=== PATIENT | male | born 1970 | race Caucasian/White ===

== ENCOUNTER 2023-11-05 10:27 | Inpatient (IN) ==
[2023-11-05 11:27] LABS: Basophils # (auto) 0.04 K/uL (0.00-0.20); Basophils % (auto) 0.3 %; Eosinophils # (auto) 0.24 K/uL (0.00-0.50); Eosinophils % (auto) 1.7 %; Hematocrit (blood only) 48.9 % (42.0-52.0); Hemoglobin 16.7 g/dl (14.0-18.0); Immature Granulocytes # (auto) 0.06 K/uL (0.01-0.20); Immature Granulocytes % (auto) 0.4 %; Lymphocytes # (auto) 0.93 K/uL (1.20-3.40); Lymphocytes % (auto) 6.4 %; Mean Corpuscular Hemoglobin 28.6 pg (25.0-34.0); Mean Corpuscular Hgb Conc 34.2 g/dL (32.0-36.0); Mean Corpuscular Volume 83.9 fL (80.0-100.0); Mean Platelet Volume 9.8 fL (9.4-12.4); Monocytes # (auto) 0.84 K/uL (0.11-0.59); Monocytes % (auto) 5.8 %; Neutrophils # (auto) 12.34 K/uL (1.40-6.50); Neutrophils % (auto) 85.4 %; Platelet Count 272 K/uL (130-400); RDW Coefficient of Variation 14.2 % (11.5-14.5); RDW Standard Deviation 43.1 fL (36.4-46.3); Red Blood Count 5.83 M/uL (4.70-6.10); White Blood Count 14.45 K/ul (4.8-10.8)
--- NOTE | 2023-11-05 11:33 | Emergency Department Note ---
Impression & Plan Ulcerative colitis, C. difficile colitis ED Provider Note Name: ARCHANA ARCE Age: 53 Sex: Male Arrives Via: Walk-In Informant: Patient ED Provider: Anders De Leon MD Chief Complaint: Abdominal pain Impression: As per impressions above Medical Decision Making: Pleasant 53-year-old gentleman with a history of recently diagnosed ulcerative colitis arrives for evaluation of diffuse Quinn worsening abdominal pain. Recently diagnosed with C. difficile and has been on antibiotics for the last 8 days. On exam he has tenderness palpation left lower quadrant he is not septic appearing. Laboratory workup reveals significantly elevated inflammatory markers. He does feel better after some IV pain medications. I discussed the case with gastroenterology who requested we start a low-dose IV Solu-Medrol and give increased dose vancomycin p.o. Furthermore requested CT imaging with p.o. and IV contrast ordered. Given patient's failure of outpatient management will need hospitalization and thus hospitalist consulted for further management while awaiting CT scan. Patient was given total 2 L normal saline bolus here and looks significantly improved from a hydration standpoint. Of note he is not septic and does not have findings of surgical abdomen on initial evaluation or repeat eval's. Triage/Nursing Notes reviewed by Me Differential:Ulcerative colitis flare, C. difficile failure treatment, ischemia, obstruction, abscess, renal colic, diverticulitis, sepsis, dehydration, electrolyte imbalance, many other pathologies including urinary tract infections amongst others. Vital Signs: reviewed and remarkable for no significant abnormalities Interventions: Normal saline bolus 1 L IV x 2, morphine 6 mg IV, Solu-Medrol 20 mg IV, vancomycin 500 mg p.o. Labs:ED labs Reviewed by me and remarkable for elevated ESR and CRP Imaging:CT of the abdomen pelvis with p.o. and IV contrast reveals a diffuse colitis as per my informal interpretation. There is no evidence of obstruction, abscess. Confirmed by radiologist. Consults:Spa Director and Hospitalist Plan: Disposition:Hospitalization. Condition: Good History of Present Illness: 53-year-old male arrives for evaluation of abdominal pain. Patient diagnosed with ulcerative colitis 2 months ago. Initially was on a higher dose prednisone but is slowly taper down to 10 mg. He is also on mesalamine. Patient notes that about 2 weeks ago diarrhea started up again. He was tested for stool studies and tested positive for C. difficile. He has been on oral vancomycin for the last 8 days. Patient notes that the diarrhea continues to worsen. He is starting to note some blood in the stool. He has developed worsening lower abdominal pain. Primarily pain is in the left lower quadrant. No associated nausea, vomiting, fevers, chills, back pain, syncope. He does note though that he is getting quite lightheaded anytime he stands. He is not currently having any other concerning signs or symptoms. He has not had any medication prior to arrival for pain other than his prescribed medications. Past Medical History: Ulcerative colitis Home Medications: Prednisone, mesalamine Allergies: No known drug allergies. Vitals:Blood Pressure: 118/76, Pulse 93, RR 16, T 36.7C, O2 96% on RA Physical Exam: GENERAL: Patient is tired appearing and in mild distress. Dehydrated. Uncomfortable RESPIRATORY: No dyspnea. Clear to auscultation and equal bilaterally. CARDIOVASCULAR: Regular rate and rhythm.No murmur appreciated. GASTROINTESTINAL: tenderness palpation of the left lower quadrant without peritonitis. Moderate hyperactive bowel sounds noted. EXTREMITIES: Normal motion all extremities, no cyanosis, no edema. NEUROLOGIC: Alert and oriented. No focal neurologic deficits appreciated SKIN: No rash, no jaundice, no diaphoresis. PSYCH: Appropriate GCS: 15 ED Course: Times/Reassessments: Patient is significantly better after initial dose of morphine. He is not having significant further abdominal pain. He is agreeable to hospitalization. Anders De Leon MD Past Med/Surg History Medical History (Updated 11/05/23 @ 17:15 by Anders De Leon MD) Ulcerative colitis Surgical History (Updated 11/05/23 @ 13:59 by Rajwinder Talley PA-C) H/O arthroscopy of shoulder Family History Other Diabetes Heart disease Hypertension Social History Smoking Status: Never smoker Hx Alcohol Use: No Hx Substance Use: No Preferred Language: Vietnamese Communication Ability: Effective Services Mgr Required: No Beliefs That Will Affect Care: None Current Living Situation: Spouse Other Information That Helps Us Care for You: No Feels Safe at Home: Yes Safety Concerns: Feels Safe At This Time Assistive Devices: Glasses Allergies Allergies Allergy/AdvReac Type Severity Reaction Status Date / Time No Known Allergies Allergy Mild OTHER Unverified 05/08/09 14:39 Home Meds Home Medications Medication Instructions Recorded Confirmed Lactobacillus rhamnosus GG 10 1 cap PO DAILY 11/05/23 11/05/23 billion cell capsule (Culturelle) mesalamine 1.2 gram tablet,delayed 1.2 g PO 11/05/23 release prednisone 5 mg tablet 10 mg PO DAILY 11/05/23 11/05/23 Results & Data (ED) Vital Signs Vital Signs - 24 hr 11/05/23 10:32 11/05/23 10:36 11/05/23 11:08 Temperature 36.7 C Temperature Source Oral Pulse Rate 111 H 93 H Pulse Rate from SpO2 Sensor 92 H Respiratory Rate 16 20 Respiratory Effort / Characteristics Non-Labored Spontaneous Respiratory Depth Normal Blood Pressure 118/76 Blood Pressure Mean 90 Pulse Oximetry 96 96 94 Oxygen Delivery Method Room Air Room Air Sepsis Recent Fever Within 48 Hours No Sepsis New/Unexplained Change in Mental Status No Sepsis Action Taken by Nursing No Action Required 11/05/23 11:10 11/05/23 11:17 11/05/23 11:20 Temperature Temperature Source Pulse Rate 90 93 H 89 Pulse Rate from SpO2 Sensor 96 H 87 Respiratory Rate 14 22 Respiratory Effort / Characteristics Respiratory Depth Blood Pressure Blood Pressure Mean Pulse Oximetry 95 95 Oxygen Delivery Method Sepsis Recent Fever Within 48 Hours Sepsis New/Unexplained Change in Mental Status Sepsis Action Taken by Nursing 11/05/23 11:30 11/05/23 11:30 11/05/23 11:40 Temperature Temperature Source Pulse Rate 83 Pulse Rate from SpO2 Sensor 85 81 Respiratory Rate 15 11 L Respiratory Effort / Characteristics Respiratory Depth Blood Pressure 113/93 Blood Pressure Mean 98 Pulse Oximetry 96 97 Oxygen Delivery Method Sepsis Recent Fever Within 48 Hours Sepsis New/Unexplained Change in Mental Status Sepsis Action Taken by Nursing 11/05/23 11:50 11/05/23 12:00 11/05/23 12:00 Temperature Temperature Source Pulse Rate 78 71 Pulse Rate from SpO2 Sensor 78 70 Respiratory Rate 11 L 19 Respiratory Effort / Characteristics Respiratory Depth Blood Pressure 121/80 Blood Pressure Mean 94 Pulse Oximetry 94 97 Oxygen Delivery Method Sepsis Recent Fever Within 48 Hours Sepsis New/Unexplained Change in Mental Status Sepsis Action Taken by Nursing 11/05/23 12:10 11/05/23 12:20 11/05/23 12:30 Temperature Temperature Source Pulse Rate 74 86 Pulse Rate from SpO2 Sensor 75 85 Respiratory Rate 14 14 Respiratory Effort / Characteristics Respiratory Depth Blood Pressure 112/75 Blood Pressure Mean 86 Pulse Oximetry 96 97 Oxygen Delivery Method Room Air Sepsis Recent Fever Within 48 Hours Sepsis New/Unexplained Change in Mental Status Sepsis Action Taken by Nursing 11/05/23 12:30 11/05/23 12:40 Temperature Temperature Source Pulse Rate 82 82 Pulse Rate from SpO2 Sensor 84 83 Respiratory Rate 17 19 Respiratory Effort / Characteristics Respiratory Depth Blood Pressure Blood Pressure Mean Pulse Oximetry 94 94 Oxygen Delivery Method Sepsis Recent Fever Within 48 Hours Sepsis New/Unexplained Change in Mental Status Sepsis Action Taken by Nursing Laboratory Data 11/05/23 11:05 11/05/23 11:05 Lab Results 11/05/23 11/05/23 Range/Units 11:05 11:46 WBC 14.45 H (4.8-10.8) K/ul RBC 5.83 (4.70-6.10) M/uL Hgb 16.7 (14.0-18.0) g/dl Hct 48.9 (42.0-52.0) % MCV 83.9 (80.0-100.0) fL MCH 28.6 (25.0-34.0) pg MCHC 34.2 (32.0-36.0) g/dL RDW Std Deviation 43.1 (36.4-46.3) fL RDW Coeff of Luan 14.2 (11.5-14.5) % Plt Count 272 (130-400) K/uL MPV 9.8 (9.4-12.4) fL Immature Gran % (Auto) 0.4 % Neut % (Auto) 85.4 % Lymph % (Auto) 6.4 % Hart % (Auto) 5.8 % Eos % (Auto) 1.7 % Baso % (Auto) 0.3 % Neut # (Auto) 12.34 H (1.40-6.50) K/uL Lymph # (Auto) 0.93 L (1.20-3.40) K/uL Hart # (Auto) 0.84 H (0.11-0.59) K/uL Eos # (Auto) 0.24 (0.00-0.50) K/uL Baso # (Auto) 0.04 (0.00-0.20) K/uL Immature Gran # (Auto) 0.06 (0.01-0.20) K/uL ESR 97 H (0-20) mm/hr Sodium 132 L (136-145) mmol/L Potassium 4.3 (3.5-5.1) mmol/L Chloride 98 (98-107) mmol/L Carbon Dioxide 24 (21-32) mmol/L Anion Gap 10 (3-11) BUN 17 (6-23) mg/dl Creatinine 1.02 (0.6-1.4) mg/dl Est Cr Clr Drug Dosing 85.5 ml/min Est GFR ( Amer) 96.1 ml/min Est GFR (Non-Af Amer) 82.9 ml/min BUN/Creatinine Ratio 16.7 (10-20) Glucose 176 H (70-99(Fasting)) mg/dl Calcium 10.0 (8.6-10.3) mg/dl Total Bilirubin 1.1 H (0.2-1.0) mg/dl AST 12 L (13-39) U/L ALT 19 (7-52) U/L Alkaline Phosphatase 53 (34-104) U/L C-Reactive Protein 6.59 H (0-0.5) mg/dl Total Protein 8.2 (6.0-8.3) gm/dl Albumin 4.2 (3.4-5.0) gm/dl Globulin 4.0 (2.5-4.0) gm/dl Albumin/Globulin Ratio 1.1 (0.9-2) Procalcitonin 0.10 (0-0.5) ng/ml Urine Color [place] Urine Appearance Cloudy A (Clear) Urine pH 5.5 (4.5-7.5) Ur Specific [place] 1.021 (1.000-1.030) Urine Protein Trace H (Negative) Urine Glucose (UA) Negative (Negative) Urine Ketones Negative (Negative) Urine Blood Negative (Negative) Urine Nitrite Negative (Negative) Urine Bilirubin Negative (Negative) Urine Urobilinogen Negative (Negative) Ur Leukocyte Esterase Trace H (Negative) Urine WBC (Auto) 5-10 H (0-5) /hpf Urine RBC (Auto) 10-30 H (0-4) /hpf U Hyaline Cast (Auto) 10-30 H (0-5) /lpf U Epithel Cells (Auto) 10-20 H (0-5) /lpf Urine Bacteria (Auto) Negative (Negative) Administered Medications Orellana Syrup (Orellana Syrup 5 Ml Udp) 5 ml PO Q6 MAURICIO Stop: 11/15/23 17:59 Last Admin: 11/05/23 17:11 Dose: 5 ml Documented By: VILMA Sodium Chloride (Nss) 1,000 mls @ 100 mls/hr IV .Q10H MAURICIO Stop: 12/05/23 13:59 Last Admin: 11/05/23 14:03 Dose: 100 mls/hr Documented By: EDUARDO Methylprednisolone 20 mg/ (Syringe) 0.32 mls @ 1.5 mls/min IV Q8H MAURICIO Stop: 12/05/23 16:29 Last Admin: 11/05/23 17:11 Dose: 1.5 mls/min Documented By: VILMA Miscellaneous (Humira 40mg Pen: Order Awaiting Action) 1 each N/A QS MAURICIO Stop: 12/05/23 15:59 Last Admin: 11/05/23 17:03 Dose: Not Given Documented By: VILMA Vancomycin HCl (Vancomycin Hcl 500 Mg/10 Ml Soln) 500 mg PO Q6 MAURICIO Stop: 11/15/23 17:59 Last Admin: 11/05/23 17:12 Dose: 500 mg Documented By: VILMA Discontinued Medications Orellana Syrup (Orellana Syrup 5 Ml Udp) 5 ml PO ONE STA Stop: 11/05/23 12:33 Last Admin: 11/05/23 13:19 Dose: 5 ml Documented By: EDUARDO Sodium Chloride (Nss) 1,000 mls @ 999 mls/hr IV .Q1H1M ONE Stop: 11/05/23 12:31 Last Infusion: 11/05/23 12:53 Dose: Infused Documented By: Admin: 11/05/23 11:41 Dose: 999 mls/hr Documented By: EDUARDO Sodium Chloride (Nss) 1,000 mls @ 999 mls/hr IV .Q1H1M ONE Stop: 11/05/23 13:40 Last Infusion: 11/05/23 14:04 Dose: Infused Documented By: Admin: 11/05/23 12:54 Dose: 999 mls/hr Documented By: EDUARDO Ioversol (Optiray 320 500ml) 82 ml IV ONCE ONE Stop: 11/05/23 14:55 Last Admin: 11/05/23 14:54 Dose: 82 ml Documented By: DORA Methylprednisolone (Methylprednisolone 40 Mg/Ml Vial) 20 mg IV NOW STA Stop: 11/05/23 12:33 Last Admin: 11/05/23 12:54 Dose: 20 mg Documented By: EDUARDO Morphine Sulfate (Morphine Sulfate 10 Mg/Ml Carp/Vial) 6 mg IV NOW STA Stop: 11/05/23 11:32 Last Admin: 11/05/23 11:40 Dose: 6 mg Documented By: EDUARDO Ondansetron HCl (Ondansetron Inj 2 Mg/Ml 2 Ml Vial) 4 mg IV NOW STA Stop: 11/05/23 11:32 Last Admin: 11/05/23 11:40 Dose: 4 mg Documented By: EDUARDO Vancomycin HCl (Vancomycin Hcl 500 Mg/10 Ml Soln) 500 mg PO ONE STA Stop: 11/05/23 12:33 Last Admin: 11/05/23 13:19 Dose: 500 mg Documented By: EDUARDO Imaging Data Radiologist's Impression: KUB X-Ray 11/05/23 11:31 KUB HISTORY: cdiff, diffuse abdominal pain COMPARISON: None. FINDINGS: The bowel gas pattern is unremarkable. There are no dilated loops of small bowel to suggest an obstruction. Specifically, no evidence for colonic dilatation. The lung bases are clear. No renal calculi. No ureteral calculi. No pneumoperitoneum or pneumatosis. IMPRESSION: Nonobstructive bowel gas pattern. ACT 112: Negative or not required by law. Electronically signed by: Manuelito Talbot M.D. 11/05/2023 12:21 PM Abdomen/Pelvis CT 11/05/23 12:32 CT SCAN OF THE ABDOMEN AND PELVIS WITH IV CONTRAST CLINICAL HISTORY: Generalized abdominal pain. COMPARISON STUDY: Abdominal CT dated 05/08/2009. TECHNIQUE: Following the IV administration of 82 cc of Optiray 320, CT scan of the abdomen and pelvis is performed from the lung bases to the proximal femora. Images are reviewed in the axial, sagittal, and coronal planes. IV contrast was administered without complication. Oral contrast was utilized. A dose lowering technique was utilized adhering to the principles of ALARA. CT DOSE: 1345.2 mGy.cm FINDINGS: Lung bases: The heart is normal in size and without pericardial effusion. The lung bases are clear noting mild bibasilar atelectasis. Liver: The contrast-enhanced liver is normal in size, contour, and attenuation. There is no intrahepatic biliary ductal dilatation. The hepatic veins and portal veins are patent. Gallbladder: Unremarkable. Spleen: Normal in size and attenuation. Pancreas: Unremarkable. Adrenal glands: Unremarkable. Kidneys: The contrast enhanced kidneys are normal in size and without hydronephrosis. The kidneys enhance symmetrically. Small nonobstructing bilateral renal calculi measuring up to [address]one is seen. A circumaortic left renal vein is incidentally noted. Abdominal vasculature: The abdominal aorta is normal in course and caliber noting scattered foci of atherosclerotic calcification. Bowel: There is mild diffuse colonic wall thickening with faint pericolonic infiltration and prominent pericolonic lymph nodes. The appearance suggests a nonspecific pancolitis. Submucosal fat deposition is noted in the distal ileum and cecum. No bowel obstruction is seen. Enteric contrast reaches the left colon. The appendix is well-visualized and normal. Peritoneum: There is no intraperitoneal free air or abdominal ascites. There is a fat-containing umbilical hernia. Lymphadenopathy: None. Pelvic viscera: The bladder, prostate, and seminal vesicles are normal as visualized. There are small bilateral fat-containing groin hernias. Skeletal structures: No lytic or blastic lesions are seen. IMPRESSION: 1. There is evidence of a mild nonspecific pancolitis, likely on an infectious or inflammatory basis. Clinical correlation will be required. 2. No bowel obstruction is seen. 3. Bilateral nephrolithiasis. 4. Normal appendix. 5. Additional findings as above. ACT 112: Negative or not required by law. Electronically signed by: Richard Woodard M.D. 11/05/2023 3:21 PM Discharge Plan Visit Data Chief Complaint: Illness Stated Complaint: DEHYDRATED, COLD SWEATS, ABD PAIN ED Provider: Anders De Leon Discharge Problem: Ulcerative colitis, C. difficile colitis Patient Disposition: Admitted As Inpatient Discharge Instructions Interventions: ED Discharge Assessment Last Done: 11/05/23 15:49 Discharge Problem: Ulcerative colitis Qualifiers: Ulcerative colitis location: ulcerative pancolitis
[2023-11-05] MEDS: ONDANSETRON INJ 2 MG/ML 2 ML VIAL IV STA (11:40)
[2023-11-05] MEDS: MoRPHine SULFATE 10 MG/ML CARP/VIAL IV STA (11:40)
[2023-11-05] MEDS: SODIUM CHLORIDE 0.9% 1,000 ML IV ONE ×2 (11:41→12:54)
[2023-11-05 11:45] LABS: Albumin Globulin Ratio 1.1 (0.9-2); Albumin Level 4.2 gm/dl (3.4-5.0); BUN Creatinine Ratio 16.7 (10-20); Bilirubin,Total 1.1 mg/dl (0.2-1.0); Creatinine Clr Calc Pharmacy 85.5 ml/min; Est GFR (African American) 96.1 ml/min; Est GFR (Non-African American) 82.9 ml/min; Potassium 4.3 mmol/L (3.5-5.1); Total Protein 8.2 gm/dl (6.0-8.3)
[2023-11-05 11:54] LABS: C Reactive Protein 6.59 mg/dl (0-0.5)
[2023-11-05 12:12] LABS: Appearance Urine Cloudy (Clear); Bacteria Urine Automated Negative (Negative); Bilirubin Urine Negative (Negative); Blood Urine Negative (Negative); Color Urine Orange; Glucose Urine UA Negative (Negative); Ketones Urine Negative (Negative); Leukocyte Esterase Urine Trace (Negative); Nitrite Urine Negative (Negative); Protein Urine Trace (Negative); Specific Gravity Urine 1.021 (1.000-1.030); Urobilinogen Urine Negative (Negative); pH Urine 5.5 (4.5-7.5)
--- NOTE | 2023-11-05 12:23 | XRay Report ---
KUB HISTORY: cdiff, diffuse abdominal pain COMPARISON: None. FINDINGS: The bowel gas pattern is unremarkable. There are no dilated loops of small bowel to suggest an obstruction. Specifically, no evidence for colonic dilatation. The lung bases are clear. No renal calculi. No ureteral calculi. No pneumoperitoneum or pneumatosis. IMPRESSION: Nonobstructive bowel gas pattern. ACT 112: Negative or not required by law. Electronically signed by: Manuelito Talbot M.D. 11/05/2023 12:21 PM
--- NOTE | 2023-11-05 12:42 | Gastrointestinal Consultation ---
Date of Consultation November 05, 2023 Assessment & Plan (1) Ulcerative colitis: (2) C. difficile colitis: Plan - Vancomycin 500mg QID (no improvement on 125 Q6 hrs x 8 days). - IV fluids - CTAP w IV/oral - Solumedrol 20mg QID - Pt bringing Humira, 80mg - it should be delivered at his home by tomorrow. Per Hospital protocol, when med is brought in to [facility] by his family, will have pharmacy relabel and teach pt self injection. - CBC, CMP tomorrow. Will also check for Celiac (life long hx of loose stools). - clear liquid diet. - will continue to follow. Supervising Physician Co-Signing Physician Notes agree with pe and plan as documented. History of Present Illness Reason for Consultation: UC, C-diff Requesting Physician: Dr. De Leon, ED physician/[facility] Attending Physician: Dr. De Leon, [facility] History of Present Illness Mr. Christopher Zaragoza is a 53 yr old male pt of Dr. Dayron Mitchell w a hx of GERD and mild psoriasis (otherwise unremarkable PMH) who is being tx for davis UC. w mesalamine po since colonoscopy was very suspicious for davis UC in Jul 2023. His symptom onset was abrupt, about 3 wks prior consisting of bloody diarrhea and pain. At the time of dx, in July, he was placed on a 6 wk predisone tape which gave relief of the diarrhea and pain withing 3 days. He remained well until mid September when the bloody diarrhea, pain nausea returned. On , he was started on a repeat prednisone taper and Humira Prescribed (now approved, first dose still pending, pt states expected to arrive at his home tomorrow). Despite the taper, diarrhea continued and he was C-diff (+) and has been on Vanco since Oct 23. The pt's diarrhea (about 1/2 cup every two hrs of bloody diarrhea)and abd pain (diffuse, worse in the LLQ) are worsening, so he presented to the ED where sed is >100, he appears dehydrated, he has leukocytosis at 14 but is afebrile, normotensive w/o tachycardia. CT pending. He got relief of the abd pain w a 6mg dose of Morphine which also slowed his diarrhea. Of note, he also has a life long hx of frequent loose BMs, about 3/day. Colonoscopy 08/13 The perianal and digital rectal examinations were normal. Pertinent negatives include normal sphincter tone and no palpable rectal lesions. The terminal ileum appeared normal. A diffuse area of severely congested, erythematous, friable (with contact bleeding) and inflamed mucosa was found in the entire colon. Biopsies were taken with a cold forceps for histology. Verification of patient identification for the specimen was done by the physician and nurse using the patient's name and date. Estimated blood loss was minimal. An area of moderately mucosa was found in the rectum. A. Colon, random, biopsy: Active chronic colitis with crypt abscess No granuloma or dysplasia identified Allergies Allergy/AdvReac Type Severity Reaction Status Date / Time No Known Allergies Allergy Mild OTHER Unverified 05/08/09 14:39 Home Medications Medication Instructions Recorded Confirmed Type Lactobacillus rhamnosus GG 10 1 cap PO DAILY 11/05/23 11/05/23 History billion cell capsule (Culturelle) mesalamine 1.2 gram tablet,delayed 1.2 g PO 11/05/23 History release prednisone 5 mg tablet 10 mg PO DAILY 11/05/23 11/05/23 History Patient History Medical History (Updated 11/05/23 @ 14:02 by Rajwinder Talley PA-C) Ulcerative colitis Surgical History (Updated 11/05/23 @ 13:59 by Rajwinder Talley PA-C) H/O arthroscopy of shoulder Family History Other Diabetes Heart disease Hypertension Social History Smoking Status: Never smoker Hx Alcohol Use: Yes Alcohol type: beer Alcohol Intake Frequency: 2-4 x/Month Alcohol Intake Frequency Comment: none in past few months with health issues Hx Substance Use: No Preferred Language: Armenian Feels Safe at Home: Yes Review of Systems Review of Systems: ROS: Gen: + easily fatigues, No fevers, + weight loss, + poor appetite Eyes: No eye redness, or pain, no recent vision changes Resp: No SOB, no cough Cardio: No palpitations/irregular beats, no chest pain GI: As per HPI, otherwise (-) : Denies pain on urination Skin: No jaundice, itching or new rashes M/S: no red/swollen joints Physical Exam Constitutional: WD/WN, vitals as above Eyes: PERRL, conjunctivae normal, anicteric sclerae ENMT: external ear and nose normal, oropharynx normal Neck: trachea midline, no thyromegaly Respiratory: normal respiratory effort, lungs clear to auscultation Cardiovascular: RRR, no murmur, no edema Gastrointestinal (Abdomen): Active BS throughout, diffuse abd tenderness, LLQ > than elsewhere, soft,mildly distended. Skin: no rashes, warm and dry Neurologic: PERRL, EOMI, accommodation nl, no face palsy, no dysarthria Psychiatric: A+Ox3, euthymic affect Lymphatic: no cervical or axillary lymphadenopathy Results & Data Vital Signs (Past 12 Hours) Vital Signs Temp Pulse Resp BP Pulse Ox O2 Del Method 11/05/23 12:10 74 14 96 Room Air 11/05/23 12:00 71 19 97 11/05/23 12:00 121/80 11/05/23 11:50 78 11 L 94 11/05/23 11:40 11 L 97 11/05/23 11:30 83 15 96 11/05/23 11:30 113/93 11/05/23 11:20 89 22 95 11/05/23 11:17 93 H 11/05/23 11:10 90 14 95 11/05/23 11:08 93 H 20 94 11/05/23 10:36 96 Room Air 11/05/23 10:32 36.7 C 111 H 16 118/76 96 Room Air Laboratory Results WBC 14, Hb 16, Hct 48, Plts 272, Na 132, K 4.3, Cl 98, CO2 28, BUN 17, Cr 1.02, glucose 121. Sed 97 CRP 6.59. Diagnostic Findings KUB 11/05/23: Negative or not required by law.
--- NOTE | 2023-11-05 13:02 | History & Physical Report ---
Date of Service November 05, 2023 Assessment & Plan (1) Ulcerative colitis: (2) C. difficile colitis: Plan: This is a 53-year-old male with PMH of suspected davis ulcerative colitis on mesalamine since colonoscopy in July 2023 with recent increase in diarrhea frequency in the past few weeks, found to be c diff positive on Oct 23 stool culture. Increased diarrhea frequency to every 40 minutes over the past few nights, left sided abdominal cramping and poor PO intake Follows with Dr. Valero, completing steroid taper (pred 10mg daily with 3 days left), on mesalamine and prescribed Humira which is en route to house but not yet started Afebrile, WNC 14.45K, hgb 16.7, ESR 97, CRP 6.59 CT abd/pelvis with IV and PO contrast pending Discussed with GI - continue Vanco at increased dose of 500mg PO Q6H, IV 20mg solu-medrol Q8H, plan to start Humira on dc Continue IV fluids, clear liquid diet, pain control Isolation precautions Repeat CMP, CBC in AM Abnormal UA Abnormal UA but no nitrates, urine bacteria negative Dysuria has resolved with hydration - will hold off on abx for now give c diff, monitor symptoms Follow urine culture DVT Ppx: SCDs Code status: FULL PCP: Stephen Dispo: Obs med/surg Patient seen in collaboration with Dr. Hunt. Please see addendum. I spent a total of 60 minutes coordinating, documenting, and providing care for this patient excluding time spent in the performance of separately billed services. History of Present Illness Chief Complaint: c diff Primary Care Provider: Dayron Mitchell MD This is a 53-year-old male with PMH of suspected davis ulcerative colitis on mesalamine since colonoscopy in July 2023. Responded well to steroids for Aug-Sep but once prednisone was tapered, diarrhea worsened and was resumed on a prednisone taper. Follows with Dr. Valero. Previously went every 2 hours but then increased in frequency the last 2 nights where he is going every 40 minutes. Consistency is mainly water and sometimes bright red blood. Associated with stomach cramping on the left lower abdomen. Humira was prescribed (but not yet started) but is en route to his house. Had a repeat stool sample at the beginning of October due to increased diarrhea and was found to be C. difficile positive on October 23. Otherwise stool culture was negative. Has been on vancomycin since then. Continuing to have frequent diarrhea episodes along with decreased p.o. intake and generalized weakness, prompting visit to ED today. Can really only tolerate Ensure shakes and has decreased PO intake. Has had chills and night sweats the past few evenings as well as nausea. No vomiting. No lightheadedness, CP, SOB. Has had dysuria for the past 1-2 weeks and feels very dehydrated. Allergies Allergy/AdvReac Type Severity Reaction Status Date / Time No Known Allergies Allergy Mild OTHER Unverified 05/08/09 14:39 Home Medications Medication Instructions Recorded Confirmed Type Lactobacillus rhamnosus GG 10 1 cap PO DAILY 11/05/23 11/05/23 History billion cell capsule (Culturelle) mesalamine 1.2 gram tablet,delayed 1.2 g PO 11/05/23 History release prednisone 5 mg tablet 10 mg PO DAILY 11/05/23 11/05/23 History Past Med/Surg History Medical History (Updated 11/05/23 @ 17:15 by Anders De Leon MD) Ulcerative colitis Surgical History (Updated 11/05/23 @ 13:59 by Rajwinder Talley PA-C) H/O arthroscopy of shoulder Family History Other Diabetes Heart disease Hypertension Social History Smoking Status: Never smoker Hx Alcohol Use: No Hx Substance Use: No Preferred Language: [place] Citizen Communication Ability: Effective Head Of Design Required: No Beliefs That Will Affect Care: None Current Living Situation: Spouse Other Information That Helps Us Care for You: No Feels Safe at Home: Yes Safety Concerns: Feels Safe At This Time Assistive Devices: Glasses Review of Systems Review of Systems: At least ten systems reviewed and negative except as noted in the HPI. Physical Exam Physical Exam: Please see Dr. Hunt's addendum for physical exam. Results & Data Results & Data Vital Signs (Past 12 Hours) Vital Signs Temp Pulse Resp BP Pulse Ox O2 Del Method 11/05/23 12:10 74 14 96 Room Air 11/05/23 12:00 71 19 97 11/05/23 12:00 121/80 11/05/23 11:50 78 11 L 94 11/05/23 11:40 11 L 97 11/05/23 11:30 83 15 96 11/05/23 11:30 113/93 11/05/23 11:20 89 22 95 11/05/23 11:17 93 H 11/05/23 11:10 90 14 95 11/05/23 11:08 93 H 20 94 11/05/23 10:36 96 Room Air 11/05/23 10:32 36.7 C 111 H 16 118/76 96 Room Air Laboratory Results Short CBC 11/05/23 Range/Units 11:05 WBC 14.45 H (4.8-10.8) K/ul Hgb 16.7 (14.0-18.0) g/dl Hct 48.9 (42.0-52.0) % Plt Count 272 (130-400) K/uL BMP 11/05/23 11:05 Sodium 132 L Potassium 4.3 Chloride 98 Carbon Dioxide 24 BUN 17 Creatinine 1.02 Glucose 176 H Calcium 10.0 Liver Function 11/05/23 Range/Units 11:05 Total Bilirubin 1.1 H (0.2-1.0) mg/dl AST 12 L (13-39) U/L ALT 19 (7-52) U/L Alkaline Phosphatase 53 (34-104) U/L Albumin 4.2 (3.4-5.0) gm/dl Urine 11/05/23 Range/Units 11:46 Urine Color [place] Urine Appearance Cloudy A (Clear) Urine pH 5.5 (4.5-7.5) Ur Specific [place] 1.021 (1.000-1.030) Urine Protein Trace H (Negative) Urine Glucose (UA) Negative (Negative) Diagnostic Findings KUB X-Ray 11/05/23 11:31 KUB HISTORY: cdiff, diffuse abdominal pain COMPARISON: None. FINDINGS: The bowel gas pattern is unremarkable. There are no dilated loops of small bowel to suggest an obstruction. Specifically, no evidence for colonic dilatation. The lung bases are clear. No renal calculi. No ureteral calculi. No pneumoperitoneum or pneumatosis. IMPRESSION: Nonobstructive bowel gas pattern. ACT 112: Negative or not required by law. Electronically signed by: Manuelito Talbot M.D. 11/05/2023 12:21 PM Supervising Physician Co-Signing Physician Notes Patient is a 53-year-old male with history of ulcerative colitis, was recently diagnosed in July 2023 presents with history of worsening diarrhea with intermittent rectal bleed, abdominal cramping. Patient was planned to be started on Humira by his physical therapy attendant. Outpatient stool studies positive for C. difficile. Currently on oral vancomycin since October 23, symptoms continued to get worse despite being on oral vancomycin. Patient also admits to have poor oral intake, generalized weakness. Please review HPI for complete details of presentation. Blood work showed findings suggestive of leukocytosis 14.4 K, hemoglobin 16.7, platelets 272 K, ESR 97, sodium 132, glucose 176, CRP 6.59, normal procalcitonin. Noted abnormal urinalysis. CT abdomen showed findings suggestive mild nonspecific pancolitis, bilateral nephrolithiasis. Physical Exam: Vitals signs as noted above General Appearance:Moderately built and nourished, no apparent distress Head: normocephalic, Atraumatic Eyes: normal inspection, EOMI Neck: supple, Trachea midline Respiratory/Chest: Normal breath sounds, CTA, No accessory muscle use Cardiovascular: S1, S2, No murmur Abdomen/GI:Soft, LLQ tender, Bowel sounds present Extremities/Musculoskeletal:normal inspection, no edema Neurologic/Psych:AAOX3, grossly no focal neurological deficits Skin: normal color, warm Ulcerative colitis flare In setting of C. difficile colitis Continue gentle IV fluids, IV Solu-Medrol, p.o. vancomycin Appreciate GI input Monitor H&H and transfuse as needed Clear liquid diet for today Continue mesalamine, plan to start Humira as able Hyperglycemia Likely due to steroids Check HbA1c I personally interviewed and examined at bedside. Patient's care is coordinated with Rajwinder Talley PA-C. I have reviewed the advanced practitioner's documentation, and I agree with, and take responsibility for that plan of care. Please refer to the documentation above for details of patient's presentation and for discussion of other issues. I spent a total of26 minutes coordinating, documenting, and providing care for this patient excluding time spent in the performance of separately billed services.
[2023-11-05] MEDS: CHERRY SYRUP 5 ML UDP PO STA (13:19)
[2023-11-05] MEDS: VANCOMYCIN HCL 500 MG/10 ML SOLN PO STA (13:19)
[2023-11-05] MEDS: SODIUM CHLORIDE 0.9% 1,000 ML IV SCH (14:03)
[2023-11-05] MEDS: OPTIRAY 320 500ml IV ONE (14:54)
--- NOTE | 2023-11-05 15:22 | CT Scan Report ---
CT SCAN OF THE ABDOMEN AND PELVIS WITH IV CONTRAST CLINICAL HISTORY: Generalized abdominal pain. COMPARISON STUDY: Abdominal CT dated 05/08/2009. TECHNIQUE: Following the IV administration of 82 cc of Optiray 320, CT scan of the abdomen and pelvi s is performed from the lung bases to the proximal femora. Images are reviewed in the axial, sagittal , and coronal planes. IV contrast was administered without complication. Oral contrast was utilized. A dose lowering technique was utilized adhering to the principles of ALARA. CT DOSE: 1345.2 mGy.cm FINDINGS: Lung bases: The heart is normal in size and without pericardial effusion. The lung bases are clear no ting mild bibasilar atelectasis. Liver: The contrast-enhanced liver is normal in size, contour, and attenuation. There is no intrahepa tic biliary ductal dilatation. The hepatic veins and portal veins are patent. Gallbladder: Unremarkable. Spleen: Normal in size and attenuation. Pancreas: Unremarkable. Adrenal glands: Unremarkable. Kidneys: The contrast enhanced kidneys are normal in size and without hydronephrosis. The kidneys enh ance symmetrically. Small nonobstructing bilateral renal calculi measuring up to [address] one is seen. A circumaortic left renal vein is incidentally noted. Abdominal vasculature: The abdominal aorta is normal in course and caliber noting scattered foci of a therosclerotic calcification. Bowel: There is mild diffuse colonic wall thickening with faint pericolonic infiltration and prominen t pericolonic lymph nodes. The appearance suggests a nonspecific pancolitis. Submucosal fat depositio n is noted in the distal ileum and cecum. No bowel obstruction is seen. Enteric contrast reaches the left colon. The appendix is well-visualized and normal. Peritoneum: There is no intraperitoneal free air or abdominal ascites. There is a fat-containing umbi lical hernia. Lymphadenopathy: None. Pelvic viscera: The bladder, prostate, and seminal vesicles are normal as visualized. There are small bilateral fat-containing groin hernias. Skeletal structures: No lytic or blastic lesions are seen. IMPRESSION: 1. There is evidence of a mild nonspecific pancolitis, likely on an infectious or inflammatory basis. Clinical correlation will be required. 2. No bowel obstruction is seen. 3. Bilateral nephrolithiasis. 4. Normal appendix. 5. Additional findings as above. ACT 112: Negative or not required by law. Electronically signed by: Richard Woodard M.D. 11/05/2023 3:21 PM
[2023-11-05] MEDS ORDERED: ONDANSETRON INJ 2 MG/ML 2 ML VIAL IV PRN (16:22)
[2023-11-05] MEDS ORDERED: ACETAMINOPHEN 325 MG TAB PO PRN (16:22)
[2023-11-05] MEDS: CHERRY SYRUP 5 ML UDP PO SCH (17:11)
[2023-11-05] MEDS: methylPREDNISolone 20 MG in SYRINGE 0 ML IV SCH (17:11)
[2023-11-05] MEDS: VANCOMYCIN HCL 500 MG/10 ML SOLN PO SCH (17:12)
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
--- OUTSIDE RECORDS SUMMARY | 2023-11-05 18:34 | External Medical Summary | Summary of Care ---
Author Name Unknown Organization [facility] Address [address] [place] [address] Phone [phone] Care Team Providers Care Core Carrier Name Role Phone Dayron Mitchell MD Primary Care Provider [phone] Encounter Details Date Type Department Care Team ([facility] st Contact Info) Description 10/14/2023 Specialty Pharmacy [facility], [address] [place] [address] Medication, [facility], [address] [address] Allergies No known active allergiesdocumented as of [...] on file documented as of this encounter Progress Notes * Bill Calabrese RPh - 10/30/2023 3:29 PM EST Prescribed medication: Medication: humira Shipment date: 11/04 Delivery method: Specialty Mail Location Medication Delivered too? Home Address: [address] [place] [phone] Results for orders placed or performed in visit on 10/09/23 QUANTIFERON TB GOLD PLUS Result Value Ref Range Quantiferon-TB Plus, 1T NEGATIVE NEGATIVE NIL 0.03 IU/mL Mitogen-NIL 8.05 IU/mL TB1-NIL 0.00 IU/mL TB2-NIL <0.00 IU/mL Results for orders placed or performed in visit on 10/09/23 HEPATITIS B SURFACE ANTIBODY Result Value Ref Range Hepatitis B Surface Antibody, Quantitative 5.3 mIU/mL Hepatitis B Surface Antibody, Qualitative Negative Hepatitis B Surface Antibody, Interpretation NOT immune to Hepatitis B Virus Bill Calabrese RPh [facility] 10/30/2023,3:41 PM * Adrianna Schafer RPh - 10/14/2023 1:42 PM EST [facility] Pharmacist identified the following Clinical Intervention and made the following change or recommendation: Type of intervention Medication Clarification Unexpected dose, clarification request, quantity is only for one pen Clinical Intervention Status: Request in process TE sent Adrianna Schafer, PharmD, [facility] Specialty Clinical Pharmacist [facility] [phone] 10/14/2023, 1:42 PM documented in this encounter Plan of Treatment Upcoming Encounters Date Type Department Care Team (Late st Contact Info) Description 01/15/2024 9:00 AM EDT Office Visit Gastroenterology, [facility] [address] [facility] [place] [address] Tree Cornejo CRNP [address] [place] [address] 06/03/2024 9:00 AM EDT Office Visit [facility] [address] [place] [address] Dayron Mitchell MD [address] [place] [address] Scheduled Procedures Name Priority Associated [...] this encounter Medical Devices Implanted Type Area Reel Fed Printer Device Identifier Shelf Expiration Date Model / Serial / Lot Biocomposite Corkscrew Ft 4.5 X 14mm Implanted:Qty: 1 on 05/03/2018 by Teri Stokes DO at OR [facility] Left: Shoulder [employer] 10/21/2019 [id number] -[id number] / / [id number] documented as of this encounter Additional Health [...] and were consensually agreed upon. Care Teams Core Carrier Relationship Specialty Start Date End Date Dayron Mitchell MD [address] [place] [facility] [place] [address] PCP - General Family Medicine 08/04/12 documented as of this encounter
--- OUTSIDE RECORDS SUMMARY | 2023-11-05 18:34 | External Medical Summary ---
Author Name Unknown Address Unknown Organization [id number]:[facility] [address] [place] [address] Laboratory Report Ordering Provider Test Date Status STEVE SANDY 10/22/2023 07:49:53 Final Observation Date Value Abnormality Reference (Units ) Status Erythrocyte sedimentation rate by Photometric method 10/22/2023 07:49:53 85 Above high normal <20 (mm/hour) Final Performing Location [facility] - [address] [place] [address]
--- OUTSIDE RECORDS SUMMARY | 2023-11-05 18:34 | External Medical Summary | Summary of Care ---
Author Name Unknown Organization [facility] Address [address] [place] [address] Phone [phone] Care Team Providers Care Pipeline Welder Name Role Phone Dayron Mitchell MD Primary Care Provider [phone] Reason for Visit * Reason Onset Date Comments Test Results 10/26/2023 Encounter Details Date Type Department Care Team (Late st Contact Info) Description 10/26/2023 Telephone Gastroenterology, [address] [address] Precious Valero, DO [address] [facility] [place] [address] Test Results Allergies No known active allergiesdocumented as of [...] days. 56 Capsule 0 10/26/2023 11/09/2023 Active documented as of this encounter (statuses [...] encounter Miscellaneous Notes * Telephone Encounter - Kenzie Allen RN - 10/26/2023 11:20 AM EST Spoke to patient, documented in another encounter. * Telephone Encounter - Precious Valero DO - 10/26/2023 8:49 AM EST Patient positive for C. difficile infection. I would like to treat him with 2- day course of vancomycin. documented in this encounter Plan of Treatment Upcoming Encounters Date Type Department Care Team (Late st Contact Info) Description 01/15/2024 9:00 AM EDT Office Visit Gastroenterology, [facility] [address] [place] [address] Tree Cornejo CRNP [address] [place] [address] 06/03/2024 9:00 AM EDT Office Visit [facility] [address] [place] [phone] Dayron Mitchell MD [address] [place] [address] Scheduled Procedures Name Priority Associated Diagnoses Date/Ti me COLONOSCOPY FLEXIBLE PROXIMA L DIAGNOSTIC Recall Special screening for malignant neoplasm of colon Health Maintenance Due Date Last Done Comments Cologuard 2014 Fecal Occult Blood Test 2014 Sigmoidoscopy 2014 Zoster Vaccines (1 of 2) 2019 Depression Screening 05/04/2021 05/04/2020 COVID-19 Vaccine (4 - 2022- season) 2023 10/06/2021, 02/03/2021, 01/06/2021 Influenza Vaccine [...] this encounter Medical Devices Implanted Type Area Political Anthropologist Device Identifier Shelf Expiration Date Model / Serial / Lot Biocomposite Corkscrew Ft 4.5 X 14mm Implanted:Qty: 1 on 05/03/2018 by Teri Stokes, at OR [facility] Left: Shoulder [employer] 10/21/2019 [id number]-[id number] -[id number] / / [id number] documented as of this encounter Additional Health Concerns Infection Onset Date Last Indicated Resolved Time C. difficile 10/23/2023 10/23/2023 documented as of this encounter Advance Directives Latest Code Status on File Code Status Date Activated Date Inactivated Comments Full Code 05/03/2018 12:04 PM 05/03/2018 5:54 PM This order reflects the patients wishes and were consensually agreed upon. Care Teams Pipeline Welder Relationship Specialty Start Date End Date Dayron Mitchell MD [address] [place] [address] PCP - General Family Medicine 08/04/12 documented as of this encounter
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
--- OUTSIDE RECORDS SUMMARY | 2023-11-05 18:34 | External Medical Summary ---
Author Name Unknown Address Unknown Organization K01:[facility] [place] [address] [address] [facility] [address] Laboratory Report Ordering Provider Test Date Status STEVE SANDY 10/23/2023 09:26:36 Final Observation Date Value Abnormality Reference (Units ) Status Campylobacter sp DNA.diarrheagenic [Presence] in Stool by ANAYELI with probe detection 10/23/2023 09:26:36 Negative Negative Final Salmonella sp rpoD gene [Presence] in Stool by ANAYELI with probe detection 10/23/2023 09:26:36 Negative Negative Final Shigella species+EIEC invasion plasmid antigen H ipaH gene [Presence] in Stool by ANAYELI with probe detection 10/23/2023 09:26:36 Negative Negative Final Vibrio sp DNA [Identifier] in Specimen by ANAYELI with probe detection 10/23/2023 09:26:36 Negative Negative Final Yersinia enterocolitica recN gene [Presence] in Stool by ANAYELI with probe detection 10/23/2023 09:26:36 Negative Negative Final Escherichia coli Stx1 toxin stx1 gene [Presence] in Stool by ANAYELI with probe detection 10/23/2023 09:26:36 Negative Negative Final Escherichia coli Stx2 toxin stx2 gene [Presence] in Stool by ANAYELI with probe detection 10/23/2023 09:26:36 Negative Negative Final Norovirus genogroups I and II RNA panel - Stool by ANAYELI with probe detection 10/23/2023 09:26:36 Negative Negative Final Rotavirus A RNA [Presence] in Stool by ANAYELI with probe detection 10/23/2023 09:26:36 Negative Negative Final Performing Location LABORATORY [address] [facility] [address]
--- OUTSIDE RECORDS SUMMARY | 2023-11-05 18:34 | External Medical Summary | Summary of Care ---
Author Name Unknown Organization [facility] Address [address] [place] [address] Phone [phone] Care Team Providers Care Educational Manager Name Role Phone Dayron Mitchell MD Primary Care Provider [phone] Reason for Visit * Reason Onset Date Comments Pre Cert/Prior Auth 10/16/2023 Encounter Details Date Type Department Care Team (Late st Contact Info) Description 10/16/2023 Telephone Gastroenterology, [facility] [address] [place] [address] Precious Valero, [address] [place] [address] Pre Cert/Prior Auth Allergies No known active [...] encounter Miscellaneous Notes * Telephone Encounter - Yan Damian, [facility] - 10/20/2023 2:11 PM EST I spoke with Kami at [facility] who is advising this is approved and can be filled at [facility]. When she completes a test claim, she receives a "DUR 88" message and states the pharmacy may need to call [phone] for an override. This may be for the first induction pens. I attempted to contact patient to discuss next steps and complete med education. No answer, left message to return call to clinic at earliest convenience. Yan Damian RPh Clinical Pharmacist, Gastroenterology 10/20/2023,2:12 PM * Telephone Encounter - Valencia Bui OSA - 10/20/2023 8:30 AM EST CALLED TEST CLAIM IS NOT SUCCESSFUL. SPOKE TO CRYSTAL. WAS ADVISED 03/18 IS NOT ALLOWED. PLEASE ADVISE. Valencia Bui Medication Street Sweeper III P: [phone] F: [phone] 10/20/23,8:29 AM * Telephone Encounter - Yan Damian RPh - 10/16/2023 11:01 AM EST Gastro Pre-Cert Request Specialty Medication: Yes. Medication/Disease State Information: Medication: Adalimumab (Humira and biosimilars) per specialty workflow Humira 40mg/0.8ml: 160mg on day 1, then 80mg on day 15, then 40mg every 14 days Diagnosis (including ICD-10): Ulcerative colitis K51.90. Specialty medication - route to [id number]. Referral to pharmacist for: co-management. Office Information: [...] 01/15/2024 9:00 AM EDT Office Visit Gastroenterology, [facility] [address] [place] [address] Tree Cornejo CRNP [address] [place] [address] 06/03/2024 9:00 AM EDT Office Visit [facility] [address] [place] [phone] Dayron Mitchell MD [address] [place] [address] Scheduled Procedures Name Priority Associated [...] this encounter Medical Devices Implanted Type Area Military Communications Specialist Device Identifier Shelf Expiration Date Model / Serial / Lot Biocomposite Corkscrew Ft 4.5 X 14mm Implanted:Qty: 1 on 05/03/2018 by Teri Stokes DO at OR [facility] Left: Shoulder [employer] 10/21/2019 [id number]-1927BCF -45 / / [id number] documented as of this encounter Advance Directives Latest Code Status on File Code Status Date Activated Date Inactivated Comments Full Code 05/03/2018 12:04 PM 05/03/2018 5:54 PM This order reflects the patients wishes and were consensually agreed upon. Care Teams Educational Manager Relationship Specialty Start Date End Date Dayron Mitchell MD [address] [place] [address] PCP - General Family Medicine 08/04/12 documented as of this encounter
--- OUTSIDE RECORDS SUMMARY | 2023-11-05 18:34 | External Medical Summary | Summary of Care ---
Author Name Unknown Organization [facility] Address [address] [place] [address] Phone [phone] Care Team Providers Care Glass Processing Worker Name Role Phone Dayron Mitchell MD Primary Care Provider [phone] Reason for Visit * Reason Comments Dosage Adjustment Via Phone (anticoag Cl inic) Encounter Details Date Type Department Care Team (Late st Contact Info) Description 10/28/2023 11:00 AM EST Telemedicine Gastroenterology, [facility] [address] [place] [address] [place], Pharmacist Gastro [address] [place], [place] [phone] Ulcerative pancolitis without complication (HCC)* Allergies No known active allergiesdocumented as of [...] as of this encounter Progress Notes * Yan Damian, [facility] - 10/28/2023 11:21 AM EST After connecting to the patient via telephone, the patient was identified by name and date of . Patient was then informed that this was a telephone call only visit. The patient agreed to participate. Visit Disposition: Routine follow-up Total call duration was 30 minutes. Gastroenterology Clinical Pharmacy Service: Medication Management Gastroenterology Provider: Dr. Valero Date of next clinic appointment: 08/18/23 ASSESSMENT Disease Type: Autoimmune, Ulcerative Colitis (UC) MTM Inflammatory Bowel Disease Management Treatment overview: Current medication: Humira 40mg/0.8ml: 160mg on day 1, then 80mg on day 15, then 40mg every 14 days Specialty pharmacy: [facility] This medication is considered an anti-TNF drug, which means that it targets a specific protein in the body called tumor necrosis factor (TNF) that causes inflammation in the intestines. It is given as an injection under the skin of the abdomen or thigh. Once taught how to inject the medication, it can be administered at home. It may take up to 12 weeks after starting this medication to see an improvement in symptoms however, a more immediate response can be seen. Side effects can include injection site reactions (such as redness, rash, swelling, itching, pain, or bruising), upper respiratory infections (including sinus infections), headaches, and nausea. This medication has Black Box warnings for an increased risk of serious infections (such as TB, invasive fungal infections and other infections caused by opportunistic pathogens) and on rare occasions, certain types of cancer, includinglymphoma. The patient is aware to let their provider know about other medical conditions that they may have, if they are or planning to become , and any other medications (including jbtx-oed-pqrgmev medications or alternative therapies) they may be taking. The patient was instructed to take the medication as directed. The patient was counseled on the importance of continuing to take their medication to prevent flares and not alter the amount of the medication or how frequently they take it, unless otherwise instructed by their provider. Routine lab monitoring may be required. The patient was encouraged to contact their provider if they experience any side effects or their symptoms worsen. Summary: Humira is approved. Spoke with patient and medication education completed. Patient wishes to come to clinic for the first doses after a discussion he had with provider. Patient is aware of the [facility] policy on externally supplied medications and directly administering. Pharmacy phone number given and process reviewed. documented in this encounter Plan of Treatment Upcoming Encounters Date Type Department Care Team (Late st Contact Info) Description 01/15/2024 9:00 AM EDT Office Visit Gastroenterology, [facility] [address] [place] [address] Tree Cornejo CRNP [address] [place] [address] 06/03/2024 9:00 AM EDT Office Visit [facility] [address] [place] [phone] Dayron Mitchell MD [address] [place] [address] Scheduled Procedures Name Priority Associated [...] this encounter Medical Devices Implanted Type Area Senior Manufacturing Engineer Device Identifier Shelf Expiration Date Model / Serial / Lot Biocomposite Corkscrew Ft 4.5 X 14mm Implanted:Qty: 1 on 05/03/2018 by Teri Stoeks DO at OR [facility] Left: Shoulder [employer] 10/21/2019 AR-1927BCF -45 / / [id number] documented as of this encounter Visit Diagnoses Diagnosis Ulcerative pancolitis without complication (HCC)- Primary documented in this encounter Additional Health Concerns Infection Onset Date Last Indicated Resolved Time C. difficile 10/23/2023 10/23/2023 documented as of this encounter Advance Directives Latest Code Status on File Code Status Date Activated Date Inactivated Comments Full Code 05/03/2018 12:04 PM 05/03/2018 5:54 PM This order reflects the patients wishes and were consensually agreed upon. Care Teams Glass Processing Worker Relationship Specialty Start Date End Date Dayron Mitchell MD [address] [place] [address] PCP - General Family Medicine 08/04/12 documented as of this encounter
--- OUTSIDE RECORDS SUMMARY | 2023-11-05 18:34 | External Medical Summary | Summary of Care ---
Author Name Unknown Organization [facility] Address [address] [place] [address] Phone [phone] Care Team Providers Care Accounts Adjustable Clerk Name Role Phone Dayron Mitchell MD Primary Care Provider [phone] Reason for Visit * Reason Comments Outpatient Testing Encounter Details Date Type Department Care Team (Late st Contact Info) Description 10/22/2023 7:50 AM EST Laboratory Laboratory, [facility] [address] [place] [address] [facility], [facility] [address] [place] [address] Acute diarrhea Allergies No known active allergiesdocumented [...] 01/15/2024 9:00 AM EDT [facility], [facility] [place] [address] Tree Cornejo CRNP [address] [place] [address] 06/03/2024 9:00 AM EDT Office Visit [facility] [address] [place] [address] Dayron Mitchell MD [address] [place] [address] Pending Results Name Type Priority Associated Diagnoses Date /Time CBC WITH WBC DIFFERENTIAL Lab Routine Acute diarrhea 10/22/2023 7:49 AM EST ERYTHROCYTE SEDIMENTATION RATE (ESR) Lab Routine Acute diarrhea 10/22/2023 7:49 AM EST CRP (INFLAMMATORY MARKER) Lab Routine Acute diarrhea 10/22/2023 7:49 AM EST COMPREHENSIVE METABOLIC PANEL Lab Routine Acute diarrhea 10/22/2023 7:49 AM EST TISSUE TRANSGLUTAMINASE IGA ANTIBODY Lab Routine Acute diarrhea 10/22/2023 7:49 AM EST CBC Lab Routine Acute diarrhea 10/22/2023 7:49 AM EST DIFFERENTIAL, AUTOMATED Lab Routine Acute diarrhea 10/22/2023 7:49 AM EST Scheduled Procedures Name Priority Associated [...] 05/31/2018, 06/04/2008, 04/13/1996 Lipid Panel 06/09/2028 06/09/2023, 09/10/2021, 05/21/2021, Additional history exists Colonoscopy 08/03/2033 08/03/2023, [...] this encounter Medical Devices Implanted Type Area Cadmium Burner Device Identifier Shelf Expiration Date Model / Serial / Lot Biocomposite Cordiontecrew Ft 4.5 X 14mm Implanted:Qty: 1 on 05/03/2018 by Teri Stokes DO at OR [facility] Left: Shoulder [employer] 10/21/2019 AR-1927BCF -45 / / [id number] documented as of this encounter Visit Diagnoses Diagnosis Acute diarrhea Diarrhea documented in this encounter Advance Directives Latest Code Status on File Code Status Date Activated Date Inactivated Comments Full Code 05/03/2018 12:04 PM 05/03/2018 5:54 PM This order reflects the patients wishes and were consensually agreed upon. Care Teams Accounts Adjustable Clerk Relationship Specialty Start Date End Date Dayron Mitchell MD [address] [place] [address] PCP - General Family Medicine 08/04/12 documented as of this encounter
--- OUTSIDE RECORDS SUMMARY | 2023-11-05 18:34 | External Medical Summary ---
Author Name Unknown Address Unknown Organization K01:[facility] [address] [place] [id number] Laboratory Report Ordering Provider Test Date Status STEVE SANDY 10/23/2023 09:26:36 Final Observation Date Value Abnormality Reference (Units) Status Bacteria identified in Specimen by Culture 10/23/2023 09:26:36 No Aeromonas species or Plesiomonas species isolated. Final Test: Gastrointestinal Patho gen Panel Culture
Specimen Source: Stool
Specimen Type: Stool
Specimen Date: 10/23/2023 9:26 AM
Result Date: 10/25/2023 11:13 AM
Result Status: Final result
Resulting Lab: [facility]
[address]
[place] [id number]

CULTURE

No Aeromonas species or Plesiomonas species isolated.

null Performing Location [facility] - [address] [place] [id number]
--- OUTSIDE RECORDS SUMMARY | 2023-11-05 18:34 | External Medical Summary | Summary of Care ---
Author Name Unknown Organization [facility] Address [address] [place] [address] Phone [phone] Care Team Providers Care Rn Or Lvn Name Role Phone Dayron Mitchell MD Primary Care Provider [phone] Reason for Visit * Reason Onset Date Comments Pre Cert/Prior Auth 10/16/2023 Encounter Details Date Type Department Care Team (Late st Contact Info) Description 10/16/2023 Telephone Gastroenterology, [facility] [address] [facility] [place] [address] Precious Valero, [address] [place] [address] Pre Cert/Prior Auth Allergies No known active [...] Notes * Telephone Encounter - Yan Damian, [facility] - 10/28/2023 11:43 AM EST Humira is approved, and prescriptions are in place. I spoke with patient. Clinic nurses - Patient wishes to come to clinic for the first doses after a discussion he had withprovider. Patient is aware of the [facility] policy on externally supplied medications and directly administering. May a nurse appointment be scheduled with the patient once the medication is received? * Telephone Encounter - Yan Damian [facility] - 10/27/2023 9:50 AM EST Attempted to contact patient. Call goes straight to voicemail and voicemail left. Attempted to contact home number but there is not a ring tone - this number may be a fax. Yan Damian [facility] * Telephone Encounter - Kenzie Allen RN - 10/26/2023 11:21 AM EST Yan, Patient states he tried to call you back but there was no answer. Can you attempt to reach out to him again? Thank you! * Telephone Encounter - Yan Damian [facility] - 10/20/2023 2:11 PM EST I spoke with Kami at [facility] who is advising this is approved and can be filled at [facility]. When she completes a test claim, she receives a "DUR 88" message and states the pharmacy may need to call [phone] for an override. This may be for the first induction pens. I attempted to contact patient to discuss next steps and complete med education. No answer, left message to return call to clinic at earliest convenience. Yan Damian [facility] Clinical Pharmacist, Gastroenterology 10/20/2023,2:12 PM * Telephone Encounter - Valencia Bui OSA - 10/20/2023 8:30 AM EST CALLED [facility] TEST CLAIM IS NOT SUCCESSFUL. SPOKE TO OZ. WAS ADVISED 03/18 IS NOT ALLOWED. PLEASE ADVISE. Valencia Bui Medication Media Assistant III P: [phone] F: [phone] 10/20/23,8:29 AM * Telephone Encounter - Yan Damian RPh - 10/16/2023 11:01 AM EST Gastro Pre-Cert Request Specialty Medication: Yes. Medication/Disease State Information: Medication: Adalimumab (Humira and biosimilars) per specialty workflow Humira 40mg/0.8ml: 160mg on day 1, then 80mg on day 15, then 40mg every 14 days Diagnosis (including ICD-10): Ulcerative colitis K51.90. Specialty medication - route to [id number]. Referral to pharmacist for: co-management. Office Information: [...] 01/15/2024 9:00 AM EDT Office Visit Gastroenterology, [address] [place] [address] Tree Cornejo CRNP [address] [place] [address] 06/03/2024 9:00 AM EDT Office Visit [facility] [address] [place] [phone] Dayron Mitchell MD [address] [place] [address] Scheduled Procedures Name Priority Associated Diagnoses Date/Ti [...] this encounter Medical Devices Implanted Type Area Water Pump Operator Device Identifier Shelf Expiration Date Model / Serial / Lot Biocomposite Corkscrew Ft 4.5 X 14mm Implanted:Qty: 1 on 05/03/2018 by Teri Stokes, at OR [facility] Left: Shoulder [employer] 10/21/2019 AR-1927BCF -45 / / [id number] documented as of this encounter Additional Health [...] and were consensually agreed upon. Care Teams Rn Or Lvn Relationship Specialty Start Date End Date Dayron Mitchell MD [address] [place] [address] PCP - General Family Medicine 08/04/12 documented as of this encounter
--- OUTSIDE RECORDS SUMMARY | 2023-11-05 18:34 | External Medical Summary | Summary of Care ---
Author Name Unknown Organization [facility] Address [address] [place] [address] Phone [phone] Care Team Providers Care Theatre Manager Name Role Phone Dayron Mitchell MD Primary Care Provider [phone] Reason for Visit * Reason Onset Date Comments Pre Cert/Prior Auth 10/16/2023 Encounter Details Date Type Department Care Team (Late st Contact Info) Description 10/16/2023 Telephone Gastroenterology, [facility] [address] [place] [address] Precious Valero, [address] [place] [address] Pre Cert/Prior Auth Allergies No known active [...] Notes * Telephone Encounter - Yan Damian, [facility] - 10/20/2023 2:11 PM EST I spoke with Kami at [facility] who is advising this is approved and can be filled at [facility]. When she completes a test claim, she receives a "DUR 88" message and states the pharmacy may need to call [phone] for an override. This may be for [...] NOT ALLOWED. PLEASE ADVISE. Valencia Bui Medication Extractor Operator Solvent Process III P: [phone] F: [phone] 10/20/23,8:29 AM * Telephone Encounter - Yan Damian RPh - 10/16/2023 11:01 AM EST Gastro Pre-Cert Request Specialty Medication: Yes. Medication/Disease State Information: Medication: Adalimumab (Humira and biosimilars) per specialty workflow Humira 40mg/0.8ml: 160mg on day 1, then 80mg on day 15, then 40mg every 14 days Diagnosis (including ICD-10): Ulcerative colitis K51.90. Specialty medication - route to [id number]. Referral to pharmacist for: co-management. Office Information: [...] 01/15/2024 9:00 AM EDT Office Visit Gastroenterology, [facility] [address] [place] [address] Tree Cornejo CRNP [address] [place] [address] 06/03/2024 9:00 AM EDT Office Visit [facility] [address] [place] [id number] Dayron Mitchell MD [address] [place] [address] Scheduled Procedures Name Priority Associated [...] this encounter Medical Devices Implanted Type Area Admissions Nurse Device Identifier Shelf Expiration Date Model / Serial / Lot Biocomposite Corkscrew Ft 4.5 X 14mm Implanted:Qty: 1 on 05/03/2018 by Teri Stokes DO at OR [facility] Left: Shoulder [employer] 10/21/2019 [id number] -[id number] / / [id number] documented as of this encounter Additional Health [...] and were consensually agreed upon. Care Teams Theatre Manager Relationship Specialty Start Date End Date Dayron Mitchell MD [address] [place] [address] PCP - General Family Medicine 08/04/12 documented as of this encounter
--- OUTSIDE RECORDS SUMMARY | 2023-11-05 18:34 | External Medical Summary ---
Author Name Unknown Address Unknown Organization K01:LABORATORY [facility] [place] - [facility] [address] [facility] [id number] Laboratory Report Ordering Provider Test Date Status STEVE SANDY 10/22/2023 07:49:53 Final Observation Date Value Abnormality Reference (Units ) Status WBC, Total 10/22/2023 07:49:53 12.16 Above high normal 4.00-10.80 (K/uL) Final RBC 10/22/2023 07:49:53 5.45 4.50-5.25 (M/uL) Final Hemoglobin 10/22/2023 07:49:53 15.5 14.0-16.8 (g/dL) Final HCT 10/22/2023 07:49:53 48.0 40.0-48.4 (%) Final MCV 10/22/2023 07:49:53 88.1 82.0-99.5 (fL) Final MCH 10/22/2023 07:49:53 28.4 27.0-34.0 (pg) Final MCHC 10/22/2023 07:49:53 32.3 32.0-36.0 (g/dL) Final RDW 10/22/2023 07:49:53 13.9 11.5-15.5 (%) Final Platelets 10/22/2023 07:49:53 293 140-400 (K/uL) Final MPV 10/22/2023 07:49:53 10.6 6.6-11.1 (fL) Final Nucleated erythrocytes/100 leukocytes [Ratio] in Blood by Automated count 10/22/2023 07:49:53 0 <=0 (/100 WBCs) Final Performing Location LABORATORY [facility] [place] - [address] [place] [address]
--- OUTSIDE RECORDS SUMMARY | 2023-11-05 18:34 | External Medical Summary ---
Author Name Unknown Address Unknown Organization K01:LABORATORY [facility] [place] - [facility] [address] [facility] [address] Laboratory Report Ordering Provider Test Date Status STEVE SANDY 10/23/2023 09:26:11 Final Observation Date Value Abnormality Reference (Units) Status Source 10/23/2023 09:26:11 Semi-liquid Final Clostridioides difficile toxin and BI-NAP1-027 strain DNA panel - Stool by ANAYELI with probe detection 10/23/2023 09:26:11 Positive for C. difficile toxin B gene DNA by PCR (Amplified Probe). Presumptive negative for C. difficile 027-NAP1-B1 strain by PCR (Amplified Probe). Abnormal Negative Final Performing Location LABORATORY [facility] [place] - [address] [facility] [address]
--- OUTSIDE RECORDS SUMMARY | 2023-11-05 18:34 | External Medical Summary | Summary of Care ---
Author Name Unknown Organization [facility] Address [address] [place] [address] Phone [phone] Care Team Providers Care Professional Architect Name Role Phone Dayron Mitchell MD Primary Care Provider [phone] Reason for Visit * Reason Onset Date Comments Pre Cert/Prior Auth 10/16/2023 Encounter Details Date Type Department Care Team (Late st Contact Info) Description 10/16/2023 Telephone Gastroenterology, [facility] [address] [place] [address] Precious Valero, [address] [place] [address] Pre Cert/Prior Auth Allergies No known active [...] Allen RN - 10/26/2023 11:21 AM EST Alexx Heredia states he tried to call you back but there was no answer. Can you attempt to reach out to him again? Thank you! * Telephone Encounter - Yan Damian [facility] - 10/20/2023 2:11 PM EST I spoke with Kami at [facility] who is advising this is approved and can be filled at [facility]. When she completes a test claim, she receives a "DUR 88" message and states the pharmacy may need to call [phone] for an override. This may be for the first induction pens. I attempted to contact patient to discuss next steps and complete med education. No answer, left message to return call to clinic at earliest convenience. Yan Damian [facility] Clinical Pharmacist, Gastroenterology 10/20/2023,2:12 PM * Telephone Encounter - Valencia Bui OSA - 10/20/2023 8:30 AM EST CALLED [facility] TEST CLAIM IS NOT SUCCESSFUL. SPOKE TO OZ. WAS ADVISED 03/18 IS NOT ALLOWED. PLEASE ADVISE. Valencia Bui Medication Adjunct Psychology Faculty Member III P: [phone] F: [phone] 10/20/23,8:29 AM * Telephone Encounter - Yan Damian [facility] - 10/16/2023 11:01 AM EST Gastro Pre-Cert Request Specialty Medication: Yes. Medication/Disease State Information: Medication: Adalimumab (Humira and biosimilars) per specialty workflow Humira 40mg/0.8ml: 160mg on day 1, then 80mg on day 15, then 40mg every 14 days Diagnosis (including ICD-10): Ulcerative colitis K51.90. Specialty medication - route to [id number]. Referral to pharmacist for: co-management. Office Information: [...] 01/15/2024 9:00 AM EDT Office Visit Gastroenterology, [facility] [address] [place] [place] [address] Tree Cornejo CRNP [address] [facility] [address] 06/03/2024 9:00 AM EDT Office Visit [facility] [address] [place] [address] Dayron Mitchell MD [address] [place] [address] Scheduled Procedures Name Priority Associated Diagnoses Date/Ti [...] this encounter Medical Devices Implanted Type Area Culled Fruit Packer Device Identifier Shelf Expiration Date Model / Serial / Lot Biocomposite Corkscrew Ft 4.5 X 14mm Implanted:Qty: 1 on 05/03/2018 by Teri Stokes, at OR [facility] Left: Shoulder [employer] 10/21/2019 [id number] -[id number] / / [id number] documented as of this encounter Additional Health [...] and were consensually agreed upon. Care Teams Professional Architect Relationship Specialty Start Date End Date Dayron Mitchell MD [address] [place] [address] PCP - General Family Medicine 08/04/12 documented as of this encounter
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
--- OUTSIDE RECORDS SUMMARY | 2023-11-05 18:34 | External Medical Summary | Summary of Care ---
Author Name Unknown Organization [facility] Address [address] [place] [address] Phone [phone] Care Team Providers Care Credit Report Checker Name Role Phone Dayron Mitchell MD Primary Care Provider [phone] Reason for Visit * Reason Onset Date Comments Test Results 10/26/2023 Encounter Details Date Type Department Care Team (Late st Contact Info) Description 10/26/2023 Telephone Gastroenterology, [address] [address] Precious Valero, DO [address] [facility] [place] [address] Test Results Allergies No known active allergiesdocumented [...] encounter Miscellaneous Notes * Telephone Encounter - Precious Valero DO - 10/26/2023 8:49 AM EST Patient positive for C. difficile infection. I would like to treat him with 2- day course of vancomycin. documented in this encounter Plan of Treatment Upcoming Encounters Date Type Department Care Team (Late st Contact Info) Description 01/15/2024 9:00 AM EDT Office [facility], [facility] [place] [address] Tree Cornejo CRNP [address] [place] [address] 06/03/2024 9:00 AM EDT Office Visit [facility] [address] [place] [address] Dayron Mitchell MD [address] [place] [facility] [place] [address] Scheduled Procedures Name Priority Associated Diagnoses [...] 05/31/2018, 06/04/2008, 04/13/1996 Lipid Panel 06/09/2028 06/09/2023, 09/0 10/2021, 05/21/2021, Additional history exists Colonoscopy 08/03/2033 [...] this encounter Medical Devices Implanted Type Area Solution Design And Analysis Manager Device Identifier Shelf Expiration Date Model / Serial / Lot Anu Jonas Ft 4.5 X 14mm Implanted:Qty: 1 on 05/03/2018 by Teri Stokes, at OR [facility] Left: Shoulder [employer] 10/21/2019 [id number]-1927BCF -45 / / [id number] documented as of this encounter Additional Health Concerns Infection Onset Date Last Indicated Resolved Time C. difficile 10/23/2023 10/23/2023 documented as of this encounter Advance Directives Latest Code Status on File Code Status Date Activated Date Inactivated Comments Full Code 05/03/2018 12:04 PM 05/03/2018 5:54 PM This order reflects the patients wishes and were consensually agreed upon. Care Teams Credit Report Checker Relationship Specialty Start Date End Date Dayron Mitchell MD [address] [place] [address] PCP - General Family Medicine 08/04/12 documented as of this encounter
--- OUTSIDE RECORDS SUMMARY | 2023-11-05 18:34 | External Medical Summary ---
Author Name Unknown Address Unknown Organization : Laboratory Report Ordering Provider Test Date Status STEVE SANDY 10/23/2023 09:26:22 Final Observation Date Value Abnormality Reference (Units ) Status Calprotectin [Mass/mass] in Stool 10/23/2023 09:26:22 5030 Above high normal (mcg/g) Final Reference Range:
<50 No rmal
50-120 Borderline
>120 Elevated
Calprotectin in Crohn's disease and ulcerative
colitis can be five to several thousand times
above the reference population (50 mcg/g or less).
Levels are usually 50 mcg/g or less in healthy
patients and with irritable bowel syndrome. Repeat
testing in 4-6 weeks is suggested for borderline
values.
Test performed by [facility]
[id number] [address]

[facility]n Home [facility]: Twyla Cash MD,PHD,BRONWYN
[facility],
[facility],
[address] [place], [place]
Manuelito Guerra M.D., Ph.D., Director of Laboratories
, JAY [id number] Performing Location
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
--- OUTSIDE RECORDS SUMMARY | 2023-11-05 18:35 | External Medical Summary ---
Author Name Unknown Address Unknown Organization K01:[facility]ATORY [facility] [place] [address] [place] [address] Laboratory Report Ordering Provider Test Date Status STEVE SANDY 10/22/2023 07:49:53 Final Observation Date Value Abnormality Reference (Units ) Status CRP, low-sensitivity 10/22/2023 07:49:53 11 Above high normal <=5 (mg/L) Final Performing Location LABORATORY [facility] - [address] [place] [address]
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
--- OUTSIDE RECORDS SUMMARY | 2023-11-05 18:35 | External Medical Summary | Summary of Care ---
Author Name Unknown Organization [facility] Address [address] [place] [address] Phone [phone] Care Team Providers Care Metal Precision Machine Assembler Name Role Phone Dayron Mitchell MD Primary Care Provider [phone] Reason for Visit * Reason Onset Date Comments Medication Pre-auth 10/14/2023 Encounter Details Date Type Department Care Team (Late st Contact Info) Description 10/14/2023 Telephone Gastroenterology, [facility] [address] [place] [address] Precious Valero, [address] [place] [address] Medication Pre-auth (/) Allergies No known active allergiesdocumented as of [...] 7. 140 Tablet 0 10/13/2023 Active Humira (2 Syringe) 40 MG/0.4ML Subcutaneous Prefilled Syringe Kit (Adalimumab) Inject 40mg (1 pen) under the skin every 14 days. 0.8 mL 6 10/13/2023 Active Humira 40 MG/0.4ML Subcutaneous Prefilled Syringe Kit (Adalimumab) Inject 1.6 mL (4 pens) under the skin once for 1 dose. 1.6 mL 0 10/13/2023 10/15/2023 documented as of this encounter (statuses as [...] encounter Miscellaneous Notes * Telephone Encounter - Estefani Crespo, wire bender hand - 10/14/2023 5:49 PM EST New or re-auth: reaut Patient needs a prior authorization for a medication through their [employer] insurance. Medication: HUMIRA Formulation: SYRINGE Dosage: 40 MG/0.4 ML Starter dose 1.6 ml 14 days supply Maint dose ID: [id number] BIN:[id number] PCN:[id number] Target ship date is N/A. Thank you very much, Estefani Crespo Software Educator III [facility] 10/14/2023,5:55 PM documented in this encounter Plan of Treatment Upcoming Encounters Date Type Department Care Team (Late st Contact Info) Description 01/15/2024 9:00 AM EDT Office Visit Gastroenterology, [facility] [address] [place] [address] Tree Cornejo CRNP [address] [place] [address] 06/03/2024 9:00 AM EDT Office Visit [facility] [address] [place] [address] Dayron Mitchell MD [address] [place] [address] Scheduled Procedures Name Priority Associated [...] 05/31/2018, 06/04/2008, 04/13/1996 Lipid Panel 06/09/2028 06/09/2023, 090 10/2021, 05/21/2021, Additional history exists Colonoscopy 08/03/2033 [...] this encounter Medical Devices Implanted Type Area Library Cataloging Technician Device Identifier Shelf Expiration Date Model / Serial / Lot Biocomposite Corkscrew Ft 4.5 X 14mm Implanted:Qty: 1 on 05/03/2018 by Teri Stokes, at OR [facility] Left: Shoulder [employer] 10/21/2019 [id number]-1927BCF -45 / / [id number] documented as of this encounter Advance Directives Latest Code Status on File Code Status Date Activated Date Inactivated Comments Full Code 05/03/2018 12:04 PM 05/03/2018 5:54 PM This order reflects the patients wishes and were consensually agreed upon. Care Teams Metal Precision Machine Assembler Relationship Specialty Start Date End Date Dayron Mitchell MD [address] [place] [address] PCP - General Family Medicine 08/04/12 documented as of this encounter
--- OUTSIDE RECORDS SUMMARY | 2023-11-05 18:35 | External Medical Summary ---
Author Name Unknown Address Unknown Organization K01:LABORATORY [facility] - Formerly [facility] [address] [place] [address] Laboratory Report Ordering Provider Test Date Status MAMTADANOSTEVE 10/22/2023 07:49:53 Final Observation Date Value Abnormality Reference (Units ) Status Tissue transglutaminase IgA Ab [Presence] in Serum by Immunoassay 10/22/2023 07:49:53 Negative Negative Final Tissue transglutaminase IgA Ab [Units/volume] in Serum by Immunoassay 10/22/2023 07:49:53 0.4 <7 (U/mL) Final Performing Location LAB[facility]ORY [facility] - [facility] [address] [place] [address]
--- OUTSIDE RECORDS SUMMARY | 2023-11-05 18:35 | External Medical Summary | Summary of Care ---
Author Name Unknown Organization [facility] Address [address] [place] [address] Phone [phone] Care Team Providers Care Extender Name Role Phone Dayron Mitchell MD Primary Care Provider [phone] Reason for Visit * Reason Onset Date Comments Pre Cert/Prior Auth 10/13/2023 Humira Encounter Details Date Type Department Care Team (Late st Contact Info) Description 10/13/2023 Telephone Gastroenterology, [address] [address] Precious Valero, DO [address] [place] [address] Pre Cert/Prior Auth (Humira) Allergies No known [...] AM EDT Office Visit Gastroenterology, [facility] [address] [place] [address] Tree Cornejo CRNP [address] [place] [address] 06/03/2024 9:00 AM EDT Office Visit [facility] [address] [place] [address] Dayron Mitchell MD [address] [place] [address] Scheduled Procedures Name Priority Associated Diagnoses Date/Ti [...] this encounter Medical Devices Implanted Type Area Custom Miller Device Identifier Shelf Expiration Date Model / Serial / Lot Biocomposite Corkscrew Ft 4.5 X 14mm Implanted:Qty: 1 on 05/03/2018 by Teri Stokes, at OR [facility] Left: Shoulder [employer] 10/21/2019 AR-1927BCF -45 / / [id number] documented as of this encounter Advance Directives Latest Code Status on File Code Status Date Activated Date Inactivated Comments Full Code 05/03/2018 12:04 PM 05/03/2018 5:54 PM This order reflects the patients wishes and were consensually agreed upon. Care Teams Extender Relationship Specialty Start Date End Date Dayron Mitchell MD [address] [place] [address] PCP - General Family Medicine 08/04/12 documented as of this encounter
--- OUTSIDE RECORDS SUMMARY | 2023-11-05 18:35 | External Medical Summary | Summary of Care ---
Author Name Unknown Organization [facility] Address [address] [place] [address] Phone [phone] Care Team Providers Care Public Information Relations Manager Name Role Phone Dayron Mitchell MD Primary Care Provider [phone] Reason for Visit * Reason Onset Date Comments Medication Question 10/14/2023 Encounter Details Date Type Department Care Team (Late st Contact Info) Description 10/14/2023 Telephone Gastroenterology, [address] [address] Precious Valero, DO [address] [facility] [place] [address] Medication Question Allergies No known active allergiesdocumented as of [...] Notes * Telephone Encounter - Yan Damian RP - 10/16/2023 11:06 AM EST The auth for Humira 40mg/0.8ml is in process. I discontinued the previous orders and will replace to [facility] upon auth approval. * Telephone Encounter - Precious Valero DO - 10/15/2023 9:25 AM EST Please adjust the dosing thank you very much for your assistance. * Telephone Encounter - Adrianna Schafer, [facility] - 10/14/2023 1:30 PM EST Good afternoon! [facility] is in receipt of the Humira prescriptions for Christopher. His loading dose is currently pending priorauthorization through his insurance. I was looking at the maintenance dose Rx that you sent with itand happened to notice the quantity on the Rx is 0.4 mL, which is one pen. The Humira 40/0.4 pens are packaged two in an unbreakable box, which in this case is a 28 day supply. With your permission, can we adjust the quantity to 0.8 mL, or alternatively, can you send a new Rx for 0.8 mL quantity atyour convenience, if appropriate? Thank you! Adrianna Schafer, PharmD, [facility] Specialty Clinical Pharmacist [facility] [phone] 10/14/2023, 1:34 PM documented in this encounter Plan of Treatment Upcoming Encounters Date Type Department Care Team (Late st Contact Info) Description 01/15/2024 9:00 AM EDT Office Visit Gastroenterology, [facility] [address] [facility] [place] [address] Tree Cornejo CRNP [address] [facility] [place] [address] 06/03/2024 9:00 AM EDT Office Visit [facility] [address] [place] [facility] [place] [phone] Dayron Mitchell MD [address] [place] [address] Scheduled Procedures Name Priority Associated Diagnoses Date/Ti [...] this encounter Medical Devices Implanted Type Area Jackspooler Device Identifier Shelf Expiration Date Model / Serial / Lot Biocomposite Corkscrew Ft 4.5 X 14mm Implanted:Qty: 1 on 05/03/2018 by Teri Stokes, at OR [facility] Left: Shoulder [employer] 10/21/2019 AR-1927BCF -45 / / [id number] documented as of this encounter Advance Directives Latest Code Status on File Code Status Date Activated Date Inactivated Comments Full Code 05/03/2018 12:04 PM 05/03/2018 5:54 PM This order reflects the patients wishes and were consensually agreed upon. Care Teams Public Information Relations Manager Relationship Specialty Start Date End Date Dayron Mitchell MD [address] [place] [address] PCP - General Family Medicine 08/04/12 documented as of this encounter
--- OUTSIDE RECORDS SUMMARY | 2023-11-05 18:35 | External Medical Summary | Summary of Care ---
Author Name Unknown Organization [facility] Address [address] [place] [address] Phone [phone] Care Team Providers Care Windscreen Fitter Name Role Phone Dayron Mitchell MD Primary Care Provider [phone] Reason for Visit * Reason Onset Date Comments Pre Cert/Prior Auth 10/13/2023 Humira Encounter Details Date Type Department Care Team (Late st Contact Info) Description 10/13/2023 Telephone Gastroenterology, [address] [address] Precious Valero, DO [facility] [place] [address] Pre Cert/Prior Auth (Humira) Allergies No known [...] Encounter - Yan Damian RPh - 10/16/2023 11:00 AM EST Started in new encounter * Telephone Encounter - Kenzie Allen RN [...] 01/15/2024 9:00 AM EDT Office Visit [facility]enter[facility], [facility] [place] [address] Tree Cornejo CRNP [address] [place] [address] 06/03/2024 9:00 AM EDT Office Visit [facility] [address] [place] [address] Dayron Mitchell MD [address] [place], [place] [address] Scheduled Procedures Name Priority Associated Diagnoses Date/Ti [...] this encounter Medical Devices Implanted Type Area Watershed Program Manager Device Identifier Shelf Expiration Date Model / Serial / Lot Biocomposite Corkscrew Ft 4.5 X 14mm Implanted:Qty: 1 on 05/03/2018 by Teri Stokes, at OR [facility] Left: Shoulder [employer] 10/21/2019 AR-1927BCF -45 / / [id number] documented as of this encounter Advance Directives Latest Code Status on File Code Status Date Activated Date Inactivated Comments Full Code 05/03/2018 12:04 PM 05/03/2018 5:54 PM This order reflects the patients wishes and were consensually agreed upon. Care Teams Windscreen Fitter Relationship Specialty Start Date End Date Dayron Mitchell MD [address] [facility] [place] [address] PCP - General Family Medicine 08/04/12 documented as of this encounter
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
--- OUTSIDE RECORDS SUMMARY | 2023-11-05 18:35 | External Medical Summary | Summary of Care ---
Author Name Unknown Organization [facility] Address [address] [place] [address] Phone [phone] Care Team Providers Care Marketing Strategy Analyst Name Role Phone Dayron Mitchell MD Primary Care Provider [phone] Reason for Visit * Reason Onset Date Comments Precert Approved 10/13/2023 Tomaszira Encounter Details Date Type Department Care Team (Late st Contact Info) Description 10/13/2023 Telephone Gastroenterology, [address] [address] Precious Valero, DO [address] [facility] [place] [address] Precert Approved (Humira) Allergies No known active allergiesdocumented as [...] 01/15/2024 9:00 AM EDT Office Visit Gastroenterology, [facility] [address] [facility] [place] [address] Tree Cornejo CRNP [address] [place] [address] 06/03/2024 9:00 AM EDT Office [facility] [address] [place] [facility] [place] [phone] Dayron Mitchell MD [address] [place], [place] [phone] Scheduled Procedures Name Priority Associated Diagnoses Date/Ti [...] this encounter Medical Devices Implanted Type Area Supervisor Lathing Device Identifier Shelf Expiration Date Model / Serial / Lot Biocomposite Corkscrew Ft 4.5 X 14mm Implanted:Qty: 1 on 05/03/2018 by Teri Stokes, at OR [facility] Left: Shoulder [employer] 10/21/2019 AR-1927BCF -45 / / [id number] documented as of this encounter Advance Directives Latest Code Status on File Code Status Date Activated Date Inactivated Comments Full Code 05/03/2018 12:04 PM 05/03/2018 5:54 PM This order reflects the patients wishes and were consensually agreed upon. Care Teams Marketing Strategy Analyst Relationship Specialty Start Date End Date Dayron Mitchell MD [address] [facility] [place] [address] PCP - General Family Medicine 08/04/12 documented as of this encounter
--- OUTSIDE RECORDS SUMMARY | 2023-11-05 18:35 | External Medical Summary ---
Author Name Unknown Address Unknown Organization K01:LABORATORY [facility] - [address] [facility] [place] [address] Laboratory Report Ordering Provider Test Date Status STEVE SANDY 10/22/2023 07:49:53 Final Observation Date Value Abnormality Reference (Units ) Status BUN 10/22/2023 07:49:53 19 6-20 (mg/dL) Final Creatinine 10/22/2023 07:49:53 1.0 0.6-1.2 (mg/dL) Final Glomerular filtration rate/1.73 sq M.predicted [Volume Rate/Area] in Serum, Plasma or Blood by Creatinine-based formula (CKD-EPI) 10/22/2023 07:49:53 >90 >=60 (mL/min) Final eGFR is calculated based on the CKD-EPI 2020 equation SODIUM 10/22/2023 07:49:53 138 135-146 (m mol/L) Final Potassium 10/22/2023 07:49:53 4.3 3.5-5.1 (m mol/L) Final Cl 10/22/2023 07:49:53 101 98-107 (mm ol/L) Final CO2 10/22/2023 07:49:53 24 22-32 (mmo l/L) Final Anion gap 10/22/2023 07:49:53 13 7-15 (mmol /L) Final Glucose 10/22/2023 07:49:53 169 Above high normal 70 -120 (mg/dL) Final Albumin 10/22/2023 07:49:53 4.1 3.8-5.0 (g /dL) Final AST (Aspartate aminotransferase) 10/22/2023 07:49:53 15 10-50 (U/L) Fin al Result may be falsely elevat ed due to hemolysis. Alk Phos 10/22/2023 07:49:53 68 35-130 (U/ L) Final Bilirubin, Total 10/22/2023 07:49:53 0.4 <=1 .2 (mg/dL) Final Calcium 10/22/2023 07:49:53 9.3 8.4-10.2 ( mg/dL) Final Protein 10/22/2023 07:49:53 7.3 6.0-8.3 (g /dL) Final ALT (Alanine aminotransferase) 10/22/2023 07:49:53 27 10-50 (U/L) Final Performing Location LABORATORY [facility] - [address] [facility] [address]
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
--- OUTSIDE RECORDS SUMMARY | 2023-11-05 18:36 | External Medical Summary | Summary of Care ---
Author Name Unknown Organization [facility] Address [address] [place] [address] Phone [phone] Care Team Providers Care Bottom Painter Name Role Phone Dayron Mitchell MD Primary Care Provider [phone] Reason for Visit * Reason Onset Date Comments Advice 10/13/2023 Encounter Details Date Type Department Care Team (Late st Contact Info) Description 10/13/2023 Telephone Gastroenterology, [address] [address] Precious Valero, DO [address] [facility] [place] [address] Advice Allergies No known active allergiesdocumented as [...] 1 dose. 1.6 mL 0 10/13/2023 4 Active Humira 40 MG/0.4ML Subcutaneous Prefilled Syringe Kit (Adalimumab) Inject 40mg (1 pen) under the skin every 14 days. 0.4 mL 6 10/13/2023 Active predniSONE 20 MG Oral Tablet (Deltasone) [...] encounter Miscellaneous Notes * Telephone Encounter - Tia Candelaria OSA - 10/15/2023 10:28 AM EST Pt has follow up on 11/09/23 with CHEO Gonzalez 10/15/2023 10:29 AM * Telephone Encounter - Kenzie Allen RN - 10/14/2023 4:02 PM EST Schedulers, please assist with a 6 week f/up with a TRAIN BRAKER Thanks * Telephone Encounter - Precious Valero DO - 10/13/2023 5:14 PM EST I was able to talk with Dr. Zaragoza,, symptoms progressing over the 3 to 4 weeks now with a liquid bm every 45 minutes. Plan Prednison 40 mg per day x 7, 30 mg x 7, 20 mg x 7, then 10 mg x 7 Begin Humira (after approval) Hepatis B seroligest and quantifieron Gold done recently. Clinic f/u with an TRAIN BRAKER in 6 weeks documented in this encounter Plan of Treatment Upcoming Encounters Date Type Department Care Team (Late st Contact Info) Description 11/09/2023 9:40 AM EST Office Visit [facility]ology, [facility] [place] [address] Precious Valero DO [address] [place] [address] 06/03/2024 9:00 AM EDT Office Visit [facility] [address] [place] [address] Dayron Mitchell MD [address] [place] [address] Scheduled Procedures Name Priority Associated Diagnoses Date/Ti [...] encounter Medical Devices Implanted Type Area Senior Net Software Developer Device Identifier Shelf Expiration Date Model / Serial / Lot Biocomposite Corkscrew Ft 4.5 X 14mm Implanted:Qty: 1 on 05/03/2018 by Teri Stokes, at OR [facility] Left: Shoulder [employer] 10/21/2019 AR-1927BCF -45 / / [id number] documented as of this encounter Advance Directives Latest Code Status on File Code Status Date Activated Date Inactivated Comments Full Code 05/03/2018 12:04 PM 05/03/2018 5:54 PM This order reflects the patients wishes and were consensually agreed upon. Care Teams Bottom Painter Relationship Specialty Start Date End Date Dayron Mitchell MD [address] [place] [address] PCP - General Family Medicine 08/04/12 documented as of this encounter
--- OUTSIDE RECORDS SUMMARY | 2023-11-05 18:36 | External Medical Summary | Summary of Care ---
Author Name Unknown Organization [facility] Address [address] [place] [address] Phone [phone] Care Team Providers Care Fusion Operator Name Role Phone Dayron Mitchell MD Primary Care Provider [phone] Reason for Visit * Reason Onset Date Comments Pre Cert/Prior Auth 10/13/2023 Humira Encounter Details Date Type Department Care Team (Late st Contact Info) Description 10/13/2023 Telephone Gastroenterology, [address] [address] Precious Valero, DO [facility] [place] [address] Pre Cert/Prior Auth (Humira) Allergies No known [...] EDT Office Visit Gastroenterology, [facility] [address] [place] [address] Tree Cornejo CRNP [address] [place] [address] 06/03/2024 9:00 AM EDT Office Visit [facility] [address] [place] [address] Dayron Mitchell MD [address] [place] [address] Scheduled Procedures Name Priority Associated Diagnoses Date/Ti [...] this encounter Medical Devices Implanted Type Area Sales Enablement Lead Device Identifier Shelf Expiration Date Model / Serial / Lot Biocomposite Corkscrew Ft 4.5 X 14mm Implanted:Qty: 1 on 05/03/2018 by Teri Stokes, at OR [facility] Left: Shoulder [employer] 10/21/2019 AR-1927BCF -45 / / [id number] documented as of this encounter Advance Directives Latest Code Status on File Code Status Date Activated Date Inactivated Comments Full Code 05/03/2018 12:04 PM 05/03/2018 5:54 PM This order reflects the patients wishes and were consensually agreed upon. Care Teams Fusion Operator Relationship Specialty Start Date End Date Dayron Micthell MD [address] [place] [address] PCP - General Family Medicine 08/04/12 documented as of this encounter
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
--- OUTSIDE RECORDS SUMMARY | 2023-11-05 18:36 | External Medical Summary | Summary of Care ---
Author Name Unknown Organization [facility] Address [address] [place] [address] Phone [phone] Care Team Providers Care Computer Salesperson Retail Name Role Phone Dayron Mitchell MD Primary Care Provider [phone] Reason for Visit * Reason Onset Date Comments Advice 10/13/2023 Encounter Details Date Type Department Care Team (Late st Contact Info) Description 10/13/2023 Telephone Gastroenterology, [address] [address] Precious Valero, DO [address] [facility] [place] [address] Advice Allergies No known active [...] with a 6 week f/up with a BLINDMAKER Thanks * Telephone Encounter - Precious Valero [...] Gold done recently. Clinic f/u with an BLINDMAKER in 6 weeks documented in this encounter Plan of Treatment Upcoming Encounters Date Type Department Care Team (Late st Contact Info) Description 11/09/2023 9:40 AM EST Office Visit Gastroenterology, [facility] [address] [place] [address] Precious Valero DO [address] [place] [address] 06/03/2024 9:00 AM EDT Office Visit [facility] [address] [place] [address] Dayron Mitchell MD [address] [place] [address] Scheduled Procedures Name Priority Associated [...] this encounter Medical Devices Implanted Type Area Associate Doctor Device Identifier Shelf Expiration Date Model / Serial / Lot Biocomposite Corkscrew Ft 4.5 X 14mm Implanted:Qty: 1 on 05/03/2018 by Teri Stokes, at OR [facility] Left: Shoulder [employer] 10/21/2019 AR-1927BCF -45 / / [id number] documented as of this encounter Advance Directives Latest Code Status on File Code Status Date Activated Date Inactivated Comments Full Code 05/03/2018 12:04 PM 05/03/2018 5:54 PM This order reflects the patients wishes and were consensually agreed upon. Care Teams Computer Salesperson Retail Relationship Specialty Start Date End Date Dayron Mitchell MD [address] [place], [place] [phone] PCP - General Family Medicine 08/04/12 documented as of this encounter
--- OUTSIDE RECORDS SUMMARY | 2023-11-05 18:36 | External Medical Summary | Summary of Care ---
Author Name Unknown Organization [facility] Address [address] [place] [address] Phone [phone] Care Team Providers Care Quick Technician Name Role Phone Dayron Mitchell MD Primary Care Provider [phone] Reason for Visit * Reason Onset Date Comments Advice 10/13/2023 Encounter Details Date Type Department Care Team (Late st Contact Info) Description 10/13/2023 Telephone Gastroenterology, [address] [address] Precious Valero, DO [address] [place] [address] Advice Allergies No known active [...] 1.6 mL 0 10/13/2023 4 Active Humira (2 Syringe) 40 MG/0.4ML Subcutaneous Prefilled Syringe Kit (Adalimumab) Inject 40mg (1 pen) under the skin every 14 days. 0.8 mL 6 10/13/2023 Active predniSONE 20 MG [...] Encounter - Precious Valero DO - 10/15/2023 12:33 PM EST The patient had both a recent hepatitis B serology and QuantiFERON gold which should suffice at thepresent time. No new labs are needed Latest Reference Range & Units 10/09/23 09:44 Hepatitis A Antibody IgM Negative Negative Hepatitis B Surface Antigen Negative Negative Hepatitis B Surface Antibody, Quantitative mIU/mL 5.3 HEPATITIS B SURFACE ANTIBODY Rpt Hepatitis B Surface Antibody, Interpretation NOT immune to Hepatitis B Virus Hepatitis B Surface Antibody, Qualitative Negative Hepatitis B Core Antibody IgM Negative Negative Hepatitis C Antibody Negative Negative Quantiferon-TB Plus, 1T NEGATIVE NEGATIVE Rpt: View report in Results Review for more information * Telephone Encounter - Tia Candelaria OSA - 10/15/2023 10:33 AM EST Pt is r/s'd. Pt asked if there were labs placed but I do not see them. Pt stated it was to be labs and a TB test? Please advise CHEO Saxena 10/15/2023 10:33 AM * Telephone Encounter - Kenzie Allen RN - 10/14/2023 4:02 PM EST Schedulers, please assist with a 6 week f/up with a CYCLE COUNTER Thanks * Telephone Encounter - Precious Valero [...] Gold done recently. Clinic f/u with an CYCLE COUNTER in 6 weeks documented in this encounter Plan of Treatment Upcoming Encounters Date Type Department Care Team (Late st Contact Info) Description 01/15/2024 9:00 AM EDT Office Visit Gastroenterology, [facility] [address] [place] [address] Tree Cornejo CRNP [address] [place] [address] 06/03/2024 9:00 AM EDT Office Visit [facility] [address] [place] [phone] Dayron Mitchell MD [address] [place], [place] [phone] Scheduled Procedures Name Priority Associated Diagnoses Date/Ti [...] encounter Medical Devices Implanted Type Area Sales And Marketing Coordinator Device Identifier Shelf Expiration Date Model / Serial / Lot Biocomposite Corkscrew Ft 4.5 X 14mm Implanted:Qty: 1 on 05/03/2018 by Teri Stokes, DO [facility] Left: Shoulder [employer] 10/21/2019 AR-1927BCF -45 / / [id number] documented as of this encounter Advance Directives Latest Code Status on File Code Status Date Activated Date Inactivated Comments Full Code 05/03/2018 12:04 PM 05/03/2018 5:54 PM This order reflects the patients wishes and were consensually agreed upon. Care Teams Quick Technician Relationship Specialty Start Date End Date Dayron Mitchell MD [address] [place] [address] PCP - General Family Medicine 08/04/12 documented as of this encounter
--- OUTSIDE RECORDS SUMMARY | 2023-11-05 18:36 | External Medical Summary | Summary of Care ---
Author Name Unknown Organization [facility] Address [address] [place] [address] Phone [phone] Care Team Providers Care Glove Cutter Name Role Phone Dayron Mitchell MD Primary Care Provider [phone] Reason for Visit * Reason Onset Date Comments Medication Question 10/14/2023 Encounter Details Date Type Department Care Team (Late st Contact Info) Description 10/14/2023 Telephone Gastroenterology, [address] [address] Precious Valero, DO [address] [facility] [place] [address] Medication Question Allergies No known active allergiesdocumented [...] your assistance. * Telephone Encounter - Adrianna Schafer [facility] - 10/14/2023 1:30 PM EST Good afternoon! [...] if appropriate? Thank you! Adrianna Schafer, PharmD, [facility] Specialty Clinical Pharmacist [facility] [phone] 10/14/2023, 1:34 PM documented in this encounter Plan of Treatment Upcoming Encounters Date Type Department Care Team (Late st Contact Info) Description 11/09/2023 9:40 AM EST Office Visit Gastroenterology, [facility] [address] [place] [address] Precious Valero DO [address] [place] [address] 06/03/2024 9:00 AM EDT Office Visit [facility] [address] [place] [address] Dayron Mitchell MD [address] [place] [address] Scheduled Procedures Name Priority Associated Diagnoses Date/Ti [...] this encounter Medical Devices Implanted Type Area Warehouse Insulation Worker Device Identifier Shelf Expiration Date Model / Serial / Lot Biocomposite Corkscrew Ft 4.5 X 14mm Implanted:Qty: 1 on 05/03/2018 by Teri Stokes, at OR [facility] Left: Shoulder [employer] 10/21/2019 AR-1927BCF -45 / / [id number] documented as of this encounter Advance Directives Latest Code Status on File Code Status Date Activated Date Inactivated Comments Full Code 05/03/2018 12:04 PM 05/03/2018 5:54 PM This order reflects the patients wishes and were consensually agreed upon. Care Teams Glove Cutter Relationship Specialty Start Date End Date Dayron Mitchell MD [address] [facility] [place] [address] PCP - General Family Medicine 08/04/12 documented as of this encounter
--- OUTSIDE RECORDS SUMMARY | 2023-11-05 18:36 | External Medical Summary | Summary of Care ---
Author Name Unknown Organization [facility] Address [address] [place] [address] Phone [phone] Care Team Providers Care Burr Machine Operator Name Role Phone Dayron Mitchell MD Primary Care Provider [phone] Reason for Visit * Reason Onset Date Comments Advice 10/13/2023 Encounter Details Date Type Department Care Team (Late st Contact Info) Description 10/13/2023 Telephone Gastroenterology, [address] [address] Precious Valero, DO [address] [place] [address] Advice Allergies No known active [...] Telephone Encounter - Kenzie Allen RN - 10/15/2023 2:27 PM EST Patient notified. Also made him aware that after Humira is approved, we will notify him. * Telephone Encounter - Precious Valero DO [...] with a 6 week f/up with a INSIDE SALES ACCOUNT REPRESENTATIVE Thanks * Telephone Encounter - Precious Valero [...] Gold done recently. Clinic f/u with an INSIDE SALES ACCOUNT REPRESENTATIVE in 6 weeks documented in this encounter Plan of Treatment Upcoming Encounters Date Type Department Care Team (Late st Contact Info) Description 01/15/2024 9:00 AM EDT Office Visit Gastroenterology, [facility] [address] [place] [address] Tree Cornejo CRNP [address] [place] [address] 06/03/2024 9:00 AM EDT Office Visit [facility] [address] [place] [phone] Dayron Mitchell MD [address] [place] [address] Scheduled Procedures Name Priority Associated [...] this encounter Medical Devices Implanted Type Area Executive Vice President Device Identifier Shelf Expiration Date Model / Serial / Lot Biocomposite Corkscrew Ft 4.5 X 14mm Implanted:Qty: 1 on 05/03/2018 by Teri Stokes DO at OR [facility] Left: Shoulder [employer] 10/21/2019 AR-1927BCF -45 / / [id number] documented as of this encounter Advance Directives Latest Code Status on File Code Status Date Activated Date Inactivated Comments Full Code 05/03/2018 12:04 PM 05/03/2018 5:54 PM This order reflects the patients wishes and were consensually agreed upon. Care Teams Burr Machine Operator Relationship Specialty Start Date End Date Dayron Mitchell MD [address] [place] [facility] [place] [address] PCP - General Family Medicine 08/04/12 documented as of this encounter
--- OUTSIDE RECORDS SUMMARY | 2023-11-05 18:36 | External Medical Summary | Summary of Care ---
Author Name Unknown Organization [facility] Address [address] [place] [address] Phone [phone] Care Team Providers Care Publishing Editor Name Role Phone Dayron Mitchell MD Primary Care Provider [phone] Reason for Visit * Reason Onset Date Comments Advice 10/13/2023 Encounter Details Date Type Department Care Team (Late st Contact Info) Description 10/13/2023 Telephone Gastroenterology, [address] [address] Precious Valero, DO [address] [place] [address] Advice Allergies No known active [...] with a 6 week f/up with a SHAREPOINT DEVELOPER Thanks * Telephone Encounter - Precious Valero [...] Gold done recently. Clinic f/u with an SHAREPOINT DEVELOPER in 6 weeks documented in this encounter Plan of Treatment Upcoming Encounters Date Type Department Care Team (Late st Contact Info) Description 01/15/2024 9:00 AM EDT Office Visit Gastroenterology, [facility] [place] [address] Tree Cornejo CRNP [address] [place] [address] 06/03/2024 9:00 AM EDT Office Visit [facility] [address] [place] [phone] Dayron Mitchell MD [address] [place], [place] [phone] Scheduled Procedures Name Priority Associated Diagnoses Date/Ti [...] this encounter Medical Devices Implanted Type Area Outside Sales Professional Device Identifier Shelf Expiration Date Model / Serial / Lot Biocomposite Corkscrew Ft 4.5 X 14mm Implanted:Qty: 1 on 05/03/2018 by Teri Stokes, at OR [facility] Left: Shoulder [employer] 10/21/2019 AR-1927BCF -45 / / [id number] documented as of this encounter Advance Directives Latest Code Status on File Code Status Date Activated Date Inactivated Comments Full Code 05/03/2018 12:04 PM 05/03/2018 5:54 PM This order reflects the patients wishes and were consensually agreed upon. Care Teams Publishing Editor Relationship Specialty Start Date End Date Dayron Mitchell MD [address] [place] [address] PCP - General Family Medicine 08/04/12 documented as of this encounter
--- OUTSIDE RECORDS SUMMARY | 2023-11-05 18:37 | External Medical Summary ---
Author Name Unknown Address Unknown Organization K01:LABORATORY [facility] - [address] [place] [address] Laboratory Report Ordering Provider Test Date Status MAVISTRISTANJEREMIAH 10/09/2023 09:44:07 Final Observation Date Value Abnormality Reference (Units ) Status CRP, low-sensitivity 10/09/2023 09:44:07 24 Above high normal <=5 (mg/L) Final Performing Location LABORATORY C - [address] [place] [address]
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
--- OUTSIDE RECORDS SUMMARY | 2023-11-05 18:37 | External Medical Summary | Summary of Care ---
Author Name Unknown Organization [facility] Address [address] [place] [address] Phone [phone] Care Team Providers Care Business Continuity Director Name Role Phone Dayron Mitchell MD Primary Care Provider [phone] Encounter Details Date Type Department Care Team (Late st Contact Info) Description 10/13/2023 Telephone Gastroenterology, [address] [address] Precious Valero, DO [address] [place] [address] Allergies No known active allergiesdocumented as of [...] 11/09/2023 9:40 AM EST Office Visit Gastroenterology, [facility] [address] [place] [address] Precious Valero DO [address] [place] [address] 06/03/2024 9:00 AM EDT Office Visit [facility] [address] [place] [address] Dayron Mitchell MD [address] [place] [address] Scheduled Procedures Name Priority Associated [...] this encounter Medical Devices Implanted Type Area Hooker Operator Device Identifier Shelf Expiration Date Model / Serial / Lot Biocomposite Corkscrew Ft 4.5 X 14mm Implanted:Qty: 1 on 05/03/2018 by Teri Stokes, at OR [facility] Left: Shoulder [employer] 10/21/2019 [id number]-1927BCF -45 / / [id number] documented as of this encounter Advance Directives Latest Code Status on File Code Status Date Activated Date Inactivated Comments Full Code 05/03/2018 12:04 PM 05/03/2018 5:54 PM This order reflects the patients wishes and were consensually agreed upon. Care Teams Business Continuity Director Relationship Specialty Start Date End Date Dayron Mitchell MD [address] [place] [address] PCP - General Family Medicine 08/04/12 documented as of this encounter
--- OUTSIDE RECORDS SUMMARY | 2023-11-05 18:37 | External Medical Summary ---
Author Name Unknown Address Unknown Organization K01:[facility] [place] [address] [place] [address] Laboratory Report Ordering Provider Test Date Status SHAMIKA MOFFETT 10/09/2023 09:44:07 Final Observation Date Value Abnormality Reference (Units) Status Hepatitis B virus surface Ab [Units/volume] in Serum or Plasma by Immunoassay 10/09/2023 09:44:07 5.3 (mIU/mL) Final Hepatitis B virus surface Ab [Presence] in Serum by Immunoassay 10/09/2023 09:44:07 Negative Final HEPATITIS B SURFACE ANTIBODY, INTERPRETATION 10/09/2023 09:44:07 NOT immune to Hepatitis B Virus Final POSITIVE: >=11.5 mIU/mL
INDETERMINATE: 8.5-<11.5 mIU/mL
NEGATIVE: <8.5 mIU/mL Performing Location [facility] [place] [address]
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
--- OUTSIDE RECORDS SUMMARY | 2023-11-05 18:37 | External Medical Summary | Summary of Care ---
Author Name Unknown Organization [facility] Address [address] [place] [address] Phone [phone] Care Team Providers Care Metal Buffer Name Role Phone Dayron Mitchell MD Primary Care Provider [phone] Encounter Details Date Type Department Care Team (Late st Contact Info) Description 10/13/2023 Telephone Gastroenterology, [address] [address] Precious Valero, DO [address] [place] [address] Allergies No known active allergiesdocumented as of [...] 11/09/2023 9:40 AM EST Office Visit Gastroenterology, [facility] [address] [place] [address] Precious Valero DO [address] [place] [address] 06/03/2024 9:00 AM EDT Office Visit [facility] [address] [place] [address] Dayron Mitchell MD [address] [place] [address] Scheduled Procedures Name Priority Associated Diagnoses Date/Ti [...] this encounter Medical Devices Implanted Type Area Community Program Assistant Device Identifier Shelf Expiration Date Model / Serial / Lot Biocomposite Corkscrew Ft 4.5 X 14mm Implanted:Qty: 1 on 05/03/2018 by Teri Stokes, DO at OR [facility] Left: Shoulder [employer] 10/21/2019 AR-1927BCF -45 / / [id number] documented as of this encounter Advance Directives Latest Code Status on File Code Status Date Activated Date Inactivated Comments Full Code 05/03/2018 12:04 PM 05/03/2018 5:54 PM This order reflects the patients wishes and were consensually agreed upon. Care Teams Metal Buffer Relationship Specialty Start Date End Date Dayron Mitchell MD [address] [facility] [place] [address] PCP - General Family Medicine 08/04/12 documented as of this encounter
--- OUTSIDE RECORDS SUMMARY | 2023-11-05 18:37 | External Medical Summary ---
Author Name Unknown Address Unknown Organization : Laboratory Report Ordering Provider Test Date Status SHAMIKA MOFFETT 10/09/2023 09:44:07 Final Observation Date Value Abnormality Reference (Units ) Status Mycobacterium tuberculosis stimulated gamma interferon [Interpretation] in Blood Qualitative 10/09/2023 09:44:07 NEGATIVE NEGATIVE Final Negative test result. M. tub erculosis complex
infection unlikely. Gamma interferon background [Units/volume] in Blood by Immunoassay 10/09/2023 09:44:07 0.03 (IU/mL) Final Mitogen stimulated gamma int erferon [Units/volume] corrected for background in Blood 10/09/2023 09:44:07 8.05 (IU/mL) Final Mycobacterium tuberculosis s timulated gamma interferon release by CD4+ T-cells [Units/volume] corrected for background in Blood 10/09/2023 09:44:07 0.00 (IU/mL) Final Mycobacterium tuberculosis s timulated gamma interferon release by CD4+ and CD8+ T-cells [Units/volume] corrected for background in Blood 10/09/2023 09:44:07 <0.00 (IU/mL) Final The Nil tube value reflects the background interferon
gamma immune response of the patient's blood sample.
This value has been subtracted from the patient's
displayed TB and Mitogen results.
Lower than expected results with the Mitogen tube
prevent false-negative Quantiferon readings by detect-
ing a patient with a potential immune suppressive
condition and/or suboptimal pre-analytical specimen
handling.
The TB1 Antigen tube is coated with the M.
tuberculosis-specific antigens designed to elicit
responses from TB antigen primed CD4+ helper
T-lymphocytes.
The TB2 Antigen tube is coated with the M.
tuberculosis-specific antigens designed to elicit
responses from TB antigen primed CD4+ helper and CD8+
cytotoxic T-lymphocytes.
For additional information, please refer to
http://[email or web address] [email or web address] Public [email or web address]/[email or web address]
(This link is being provided for information/
educational purposes only.)

Test Performed at:
[facility]
[address] [facility]
[place] [address]
Manuelito Guerra M.D., Ph.D.,Director of Laboratories Performing Location
--- OUTSIDE RECORDS SUMMARY | 2023-11-05 18:37 | External Medical Summary ---
Author Name Unknown Address Unknown Organization K01:[facility] - [address] [place] [id number] Laboratory Report Ordering Provider Test Date Status LALITO MOFFETTUJA 10/09/2023 09:44:07 Final Observation Date Value Abnormality Reference (Units ) Status Hep A IgM 10/09/2023 09:44:07 Negative Negative Final Hep B Core IgM 10/09/2023 09:44:07 Negative Negat kaylin Final Hep B surface Ag 10/09/2023 09:44:07 Negative Neg ative Final Hep C Ab 10/09/2023 09:44:07 Negative Negative Final Performing Location [facility] - [address] [place] [address]
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
--- OUTSIDE RECORDS SUMMARY | 2023-11-05 18:37 | External Medical Summary | Summary of Care ---
Author Name Unknown Organization [facility] Address [address] [place] [address] Phone [phone] Care Team Providers Care Life Insurance Salesperson Name Role Phone Dayron Mitchell MD Primary Care Provider [phone] Encounter Details Date Type Department Care Team (Late st Contact Info) Description 10/13/2023 Telephone Gastroenterology, [address] [address] Precious Valero, DO [address] [facility], [place] [phone] Allergies No known active allergiesdocumented as of [...] encounter Miscellaneous Notes * Telephone Encounter - Machelle Bridges LPN [...] 11/09/2023 9:40 AM EST Office Visit Gastroenterology, [facility] [address] [place] [address] Precious Valero DO [address] [place] [address] 06/03/2024 9:00 AM EDT Office Visit [facility] [address] [place] [phone] Dayron Mitchell MD [address] [place] [address] Scheduled Procedures Name Priority Associated Diagnoses Date/Ti [...] this encounter Medical Devices Implanted Type Area Patrol Inspector Device Identifier Shelf Expiration Date Model / Serial / Lot Biocomposite Corkscrew Ft 4.5 X 14mm Implanted:Qty: 1 on 05/03/2018 by Teri Stokes, at OR [facility] Left: Shoulder [employer] 10/21/2019 AR-1927BCF -45 / / [id number] documented as of this encounter Advance Directives Latest Code Status on File Code Status Date Activated Date Inactivated Comments Full Code 05/03/2018 12:04 PM 05/03/2018 5:54 PM This order reflects the patients wishes and were consensually agreed upon. Care Teams Life Insurance Salesperson Relationship Specialty Start Date End Date Dayron Mitchell MD [address] [place] [address] PCP - General Family Medicine 08/04/12 documented as of this encounter
--- OUTSIDE RECORDS SUMMARY | 2023-11-05 18:37 | External Medical Summary | Summary of Care ---
Author Name Unknown Organization [facility] Address [address] [place] [address] Phone [phone] Care Team Providers Care Enrollment Representative Name Role Phone Dayron Mitchell MD Primary Care Provider [phone] Reason for Visit * Reason Comments New Med Request Encounter Details Date Type Department Care Team (Late st Contact Info) Description 08/20/2023 Refill Gastroenterology, [facility] 132 [facility] [place] [address] [place], [address] [facility] [place] [address] Allergies No known active allergiesdocumented as of this encounter (statuses as of 08/20/2023) Medications Medication Sig Dispensed Refills Start Date End Date Status Triamcinolone Acetonide 0.1 % External Cream (Aristocort)Olga cations:Contact dermatitis and eczema Apply topically to affected [...] the morning. 270 Tablet 1 08/20/2023 Active Mesalamine 1.2 GM Oral Tablet Delayed Release (Lialda) Take 3 Tablets by mouth in the morning. 270 Tablet 1 08/18/2023 3 Discontinued documented as of this encounter [...] Moon Antony RPh - 08/20/2023 1:23 PM ESTSigned Prescriptions: Disp Refills Mesalamine 1.2 GM Oral Tablet Delayed Rele*270 Ta*1 Sig: Take 3 Tablets by mouth in the morning.Authorizing Provider: DU VALERO User: MOON ANTONY * Telephone Encounter - Moon Antony RPh - 08/20/2023 1:22 PM EST Re-routed per request. Thanks, Moon Antony RPh Clinical Pharmacist [facility] ([facility]) (Formerly Telepharmacy) [phone] documented in this encounter Plan of Treatment Upcoming Encounters Date Type Department Care Team (Late st Contact Info) Description 11/09/2023 9:40 AM EST Office Visit Gastroenterology, [facility] [address] [place] [address] Du Valero DO [address] [place] [address] 06/03/2024 9:00 AM EDT Office Visit [facility] [address] [place] [address] Dayron Mitchell MD [address] [place], [place] [phone] Scheduled Procedures Name Priority Associated Diagnoses Date/Ti [...] this encounter Medical Devices Implanted Type Area Side Stitcher Device Identifier Shelf Expiration Date Model / Serial / Lot Biocomposite Corkscrew Ft 4.5 X 14mm Implanted:Qty: 1 on 05/03/2018 by Teri Stokes, at OR [facility] Left: Shoulder [employer] 10/21/2019 AR-1927BCF -45 / / [id number] documented as of this encounter Advance Directives Latest Code Status on File Code Status Date Activated Date Inactivated Comments Full Code 05/03/2018 12:04 PM 05/03/2018 5:54 PM This order reflects the patients wishes and were consensually agreed upon. Care Teams Enrollment Representative Relationship Specialty Start Date End Date Dayron Mitchell MD [address] [place] [address] PCP - General Family Medicine 08/04/12 documented as of this encounter
--- OUTSIDE RECORDS SUMMARY | 2023-11-05 18:37 | External Medical Summary | Summary of Care ---
Author Name Unknown Organization [facility] Address [address] [place] [address] Phone [phone] Care Team Providers Care Clearing Distribution Clerk Name Role Phone Dayron Mitchell MD Primary Care Provider [phone] Reason for Visit * Reason Onset Date Comments Advice 10/13/2023 Encounter Details Date Type Department Care Team (Late st Contact Info) Description 10/13/2023 Telephone Gastroenterology, [address] [address] Precious Valero, DO [address] [facility] [place] [address] Advice Allergies No known active [...] Prefilled Syringe Kit (Adalimumab) Inject 1.6 mL under the skin once for 1 dose. 1.6 mL 0 10/13/2023 Active Humira 40 MG/0.4ML Subcutaneous Prefilled Syringe Kit (Adalimumab) Inject 0.4 mL under the skin every 14 days. 0.4 [...] Miscellaneous Notes * Telephone Encounter - Precious Valero, - 10/13/2023 5:14 PM EST I was [...] Gold done recently. Clinic f/u with an OFFSET PROOF PRESS OPERATOR in 6 weeks documented in this encounter Plan of Treatment Upcoming Encounters Date Type Department Care Team (Late st Contact Info) Description 11/09/2023 9:40 AM EST Office Visit Gastroenterology, [facility] [address] [place] [address] Precious Valero DO [address] [place] [address] 06/03/2024 9:00 AM EDT Office Visit [facility] [address] [place] [address] Dayron Mitchell MD [address] [place] [address] Scheduled Procedures Name Priority Associated [...] this encounter Medical Devices Implanted Type Area Clinical Educator Device Identifier Shelf Expiration Date Model / Serial / Lot Biocomposite Corkscrew Ft 4.5 X 14mm Implanted:Qty: 1 on 05/03/2018 by Teri Stokes, at OR [facility] Left: Shoulder [employer] 10/21/2019 [id number] / / [id number] documented as of this encounter Advance Directives Latest Code Status on File Code Status Date Activated Date Inactivated Comments Full Code 05/03/2018 12:04 PM 05/03/2018 5:54 PM This order reflects the patients wishes and were consensually agreed upon. Care Teams Clearing Distribution Clerk Relationship Specialty Start Date End Date Dayron Mitchell MD [address] [place] [address] PCP - General Family Medicine 08/04/12 documented as of this encounter
--- OUTSIDE RECORDS SUMMARY | 2023-11-05 18:37 | External Medical Summary ---
Author Name Unknown Address Unknown Organization K01:[facility] [place] [address] [place] [id number] Laboratory Report Ordering Provider Test Date Status SHAMIKA MOFFETT 10/09/2023 09:44:07 Final Observation Date Value Abnormality Reference (Units ) Status Albumin 10/09/2023 09:44:07 4.5 3.8-5.0 (g/dL) Final AST (Aspartate aminotransferase) 10/09/2023 09:44:07 17 10-50 (U/L) Final Alk Phos 10/09/2023 09:44:07 70 35-130 (U/L) Final ALT (Alanine aminotransferase) 10/09/2023 09:44:07 19 10-50 (U/L) Final Bilirubin, Total 10/09/2023 09:44:07 0.7 <=1.2 (mg/dL) Final Bilirubin, Direct 10/09/2023 09:44:07 <0.2 0.0-0.3 (mg/dL) Final Protein 10/09/2023 09:44:07 7.5 6.0-8.3 (g/dL) Final Performing Location [facility] [place] - [address] [place] [address]
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
--- OUTSIDE RECORDS SUMMARY | 2023-11-05 18:40 | External Medical Summary | Summary of Care ---
Author Name Unknown Organization [facility] Address [address] [place] [address] Phone [phone] Care Team Providers Care Set And Exhibit Designer Name Role Phone Dayron Mitchell MD Primary Care Provider [phone] Reason for Visit * Reason Onset Date Comments Test Results 08/04/2023 Encounter Details Date Type Department Care Team (Late st Contact Info) Description 08/04/2023 Telephone ENDO [facility], Endoscopy Room [facility] [address] [facility] [address] Zuhair Wick MD [address] [place], [place] [address] [address] Test Results Allergies No known active [...] encounter Miscellaneous Notes * Telephone Encounter - Deng Ho OSA [...] 08/05/2023 10:27 AM EST Patient calling in [facility] never received prescription for prednisone can you [...] note were not included. Zuhair Wick MD [facility], [facility] [phone] minutes ago (12:59 PM) Please call and inform a steroid taper has been ordered to start wtih treatment after recent colonoscopy. Biopsies are still pending but c diff is negative. Outgoing call documented in this encounter Plan of Treatment Upcoming Encounters Date Type Department Care Team (Late st Contact Info) Description 11/06/2023 11:20 AM EST Office Visit Gastroenterology, [facility] [address] [facility] [place] [address] Varun Sotelo MD [address] [facility] [address] 06/03/2024 9:00 AM EDT Office Visit [facility] [address] [place] [phone] Dayron Mitchell MD [address] [place] [address] Scheduled Orders Name Type Priority Associated Diagnoses [...] this encounter Medical Devices Implanted Type Area Principal Android Developer Device Identifier Shelf Expiration Date Model / Serial / Lot Biocomposite Corkscrew Ft 4.5 X 14mm Implanted:Qty: 1 on 05/03/2018 by Teri Stokes, at OR [facility] Left: Shoulder [employer] 10/21/2019 AR-1927BCF -45 / / [id number] documented as of this encounter Visit Diagnoses [...] and were consensually agreed upon. Care Teams Set And Exhibit Designer Relationship Specialty Start Date End Date Dayron Mitchell MD [address] [place] [address] PCP - General Family Medicine 08/04/12 documented as of this encounter
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
--- OUTSIDE RECORDS SUMMARY | 2023-11-05 18:40 | External Medical Summary | Summary of Care ---
Author Name Unknown Organization [facility] Address [address] [place] [address] Phone [phone] Care Team Providers Care Tactical Response Group Officer Name Role Phone Dayron Mitchell MD Primary Care Provider [phone] Reason for Visit * Reason Onset Date Comments Test Results 08/04/2023 Encounter Details Date Type Department Care Team (Late st Contact Info) Description 08/04/2023 Telephone ENDO [facility], Endoscopy Room [facility] [address] [place] [address] Zuhair Wick MD [address] [place], [place] [address] [address] Test Results Allergies No known active [...] 08/05/2023 10:27 AM EST Patient calling in [facility] never received prescription for prednisone [...] note were not included. Zuhair Wick MD Warren [facility], [place] [phone] minutes ago (12:59 PM) Please call and inform a steroid taper has been ordered to start wtih treatment after recent colonoscopy. Biopsies are still pending but c diff is negative. Outgoing call documented in this encounter Plan of Treatment Upcoming Encounters Date Type Department Care Team (Late st Contact Info) Description 11/06/2023 11:20 AM EST Office Visit Gastroenterology, [facility] [place] [address] [facility]un [facility]ot[facility] [place] [address] 06/03/2024 9:00 AM EDT Office Visit [facility] [address] [place] [phone] Dayron Mitchell MD [address] [place] [address] Scheduled Orders Name Type Priority [...] this encounter Medical Devices Implanted Type Area Dance Historian Device Identifier Shelf Expiration Date Model / Serial / Lot Biocomposite Corkscrew Ft 4.5 X 14mm Implanted:Qty: 1 on 05/03/2018 by Teri Stokes, at OR [facility] Left: Shoulder [employer] 10/21/2019 AR-1927BCF -45 / / [id number] documented as of this encounter Visit Diagnoses [...] and were consensually agreed upon. Care Teams Tactical Response Group Officer Relationship Specialty Start Date End Date Dayron Mitchell MD [address] [place] [address] PCP - General Family Medicine 08/04/12 documented as of this encounter
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
--- OUTSIDE RECORDS SUMMARY | 2023-11-05 18:41 | External Medical Summary | Summary of Care ---
Author Name Unknown Organization [facility] Address [address] [place] [place] [address] Phone [phone] Care Team Providers Care Business Controller Name Role Phone Dayron Mitchell MD Primary Care Provider [phone] Reason for Visit * Reason Onset Date Comments Test Results 08/04/2023 Encounter Details Date Type Department Care Team (Late st Contact Info) Description 08/04/2023 Telephone ENDO [facility], Endoscopy Room [facility] [address] [facility] [place] [address] Zuhair Wick MD [address] [place], [place] [address]A Rendon [address] Test Results Allergies No known [...] Miscellaneous Notes * Telephone Encounter - Deng Ho, CHEO - 08/10/2023 12:52 PM EST The appt [...] 08/05/2023 10:27 AM EST Patient calling in [facility] never received prescription for [...] note were not included. Zuhair Wick [facility] [place] [phone] minutes ago (12:59 PM) Please call and inform a steroid taper has been ordered to start wtih treatment after recent colonoscopy. Biopsies are still pending but c diff is negative. Outgoing call documented in this encounter Plan of Treatment Upcoming Encounters Date Type Department Care Team (Late st Contact Info) Description 11/06/2023 11:20 AM EST Office Visit Gastroenterology, [facility] [address] [address] Varun Sotelo MD [address] [address] 06/03/2024 9:00 AM EDT Office Visit [facility] [address] [place] [facility] [place] [address] Dayron Mitchell MD [address] [facility] [employer] [facility] [place] [id number] Scheduled Orders Name Type Priority Associated Diagnoses [...] this encounter Medical Devices Implanted Type Area Ladle Builder Device Identifier Shelf Expiration Date Model / Serial / Lot Biocomposite Corkscrew Ft 4.5 X 14mm Implanted:Qty: 1 on 05/03/2018 by Teri Stokes DO at OR [facility] Left: Shoulder [employer] 10/21/2019 [id number]-1927BCF -[id number] / / [id number] documented as of this encounter Visit Diagnoses [...] were consensually agreed upon. Care Teams Business Controller Relationship Specialty Start Date End Date Dayron Mitchell MD [address] [place] [address] PCP - General Family Medicine 08/04/12 documented as of this encounter
--- OUTSIDE RECORDS SUMMARY | 2023-11-05 18:41 | External Medical Summary | Summary of Care ---
Author Name Unknown Organization [facility] Address [address] [place] [facility] [place] [address] Phone [phone] Care Team Providers Care Photo Studio Assistant Name Role Phone Dayron Mitchell MD Primary Care Provider [phone] Reason for Visit * Reason Onset Date Comments Test Results 08/04/2023 Encounter Details Date Type Department Care Team (Late st Contact Info) Description 08/04/2023 Telephone ENDO [facility], Endoscopy Room [facility] [address] [place] [address] Zuhair Wick MD [address] [place], [place] [address]A Rendon [address] Test Results Allergies No known [...] 08/05/2023 10:27 AM EST Patient calling in [facility] never received prescription for prednisone can you [...] note were not included. Zuhair Wick MD [facility], [place] I [phone] minutes ago (12:59 PM) Please call and inform a steroid taper has been ordered to start wtih treatment after recent colonoscopy. Biopsies are still pending but c diff is negative. Outgoing call documented in this encounter Plan of Treatment Upcoming Encounters Date Type Department Care Team (Late st Contact Info) Description 11/06/2023 11:20 AM EST Office Visit Gastroenterology, [facility] [address] [place] [address] Varun Sotelo MD [address] [place] [address] 06/03/2024 9:00 AM EDT Office Visit [facility] [address] [place] [address] Dayron Mitchell MD [address] [place] [address] Scheduled Orders Name Type Priority Associated Diagnoses [...] Depression Screening 05/04/2021 05/04/2020 COVID-19 Vaccine ( - 2022- season) 2023 10/06/2021, 02/03/2021, 01/06/2021 [...] this encounter Medical Devices Implanted Type Area Churn Operator Device Identifier Shelf Expiration Date Model / Serial / Lot Biocomposite Corkscrew Ft 4.5 X 14mm Implanted:Qty: 1 on 05/03/2018 by Teri Stokes, at OR [facility] Left: Shoulder [employer] 10/21/2019 [id number]-1927BCF -45 / / [id number] documented as of this encounter Visit Diagnoses [...] and were consensually agreed upon. Care Teams Photo Studio Assistant Relationship Specialty Start Date End Date Dayron Mitchell MD [address] [place], [place] [phone] PCP - General Family Medicine 08/04/12 documented as of this encounter
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
--- OUTSIDE RECORDS SUMMARY | 2023-11-05 18:41 | External Medical Summary | Summary of Care ---
Author Name Unknown Organization [facility] Address [address] [place] [address] Phone [phone] Care Team Providers Care Pinion And Wheel Truer Name Role Phone Dayron Mitchell MD Primary Care Provider [phone] Reason for Visit * Reason Onset Date Comments Test Results 08/04/2023 Encounter Details Date Type Department Care Team (Late st Contact Info) Description 08/04/2023 Telephone ENDO [facility], Endoscopy Room [facility] [address] [facility] [place] [address] Zuhair Wick MD [address] [place], [place] [address]AL[place]A Rendon [address] Test Results Allergies No known [...] 08/05/2023 10:27 AM EST Patient calling in [facility] never received prescription for prednisone can [...] note were not included. Zuhair Wick MD [facility], [facility] [phone] minutes ago (12:59 PM) Please call and inform a steroid taper has been ordered to start wtih treatment after recent colonoscopy. Biopsies are still pending but c diff is negative. Outgoing call documented in this encounter Plan of Treatment Upcoming Encounters Date Type Department Care Team (Late st Contact Info) Description 11/06/2023 11:20 AM EST Office Visit Gastroenterology, [facility] [address] [facility] [place] [address] Varun Sotelo MD [address] [facility] [place] [address] 06/03/2024 9:00 AM EDT Office Visit [facility] [address] [place] [address] Dayron Mitchell MD [address] [place] [address] Scheduled Orders Name Type Priority Associated Diagnoses [...] this encounter Medical Devices Implanted Type Area Metal Flow Coordinator Device Identifier Shelf Expiration Date Model / Serial / Lot Biocomposite Cordiontecrew Ft 4.5 X 14mm Implanted:Qty: 1 on 05/03/2018 by Teri Stokes, at OR [facility] Left: Shoulder [employer] 10/21/2019 [id number] -45 / / [id number] documented as of this encounter Visit Diagnoses [...] and were consensually agreed upon. Care Teams Pinion And Wheel Truer Relationship Specialty Start Date End Date Dayron Mitchell MD [address] [place], [place] [phone] PCP - General Family Medicine 08/04/12 documented as of this encounter
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
--- OUTSIDE RECORDS SUMMARY | 2023-11-05 18:41 | External Medical Summary | Summary of Care ---
Author Name Unknown Organization [facility] Address [address] [place] [address] Phone [phone] Care Team Providers Care Costumed Character Name Role Phone Dayron Mitchell MD Primary Care Provider [phone] Encounter Details Date Type Department Care Team (Late st Contact Info) Description 08/04/2023 Telephone ENDO [facility], Endoscopy Room [facility] [address] [place] [address] Zuhair Wick MD [address] [place] [address] [place] [address] Allergies No known active allergiesdocumented as of [...] as of this encounter Miscellaneous Notes * Addendum Note - Zuhair Wick MD [...] Zuhair Wick MD [facility], [place] [phone] minutes ago (12:59 PM) Please call and inform a steroid taper has been ordered to start wtih treatment after recent colonoscopy. Biopsies are still pending but c diff is negative. Outgoing call documented in this encounter Plan of Treatment Upcoming Encounters Date Type Department Care Team (Late st Contact Info) Description 06/03/2024 9:00 AM EDT Office Visit [place] [address] [place] [address] Dayron Mitchell MD [address] [place] [address] Scheduled Orders Name Type Priority [...] this encounter Medical Devices Implanted Type Area Seismic Computer Device Identifier Shelf Expiration Date Model / Serial / Lot Biocomposite Corkscrew Ft 4.5 X 14mm Implanted:Qty: 1 on 05/03/2018 by Teri Stokes, at OR [facility] Left: Shoulder [employer] 10/21/2019 AR-1927BCF -45 / / [id number] documented as of this encounter Visit Diagnoses [...] and were consensually agreed upon. Care Teams Costumed Character Relationship Specialty Start Date End Date Dayron Mitchell MD [address] [place] [address] PCP - General Family Medicine 08/04/12 documented as of this encounter
--- OUTSIDE RECORDS SUMMARY | 2023-11-05 18:41 | External Medical Summary | Summary of Care ---
Author Name Unknown Organization [facility] Address [address] [place] [address] Phone [phone] Care Team Providers Care Automobile Club Information Clerk Name Role Phone Dayron Mitchell MD Primary Care Provider [phone] Encounter Details Date Type Department Care Team (Late st Contact Info) Description 08/04/2023 Telephone ENDO [facility], Endoscopy Room [facility] [address] [place] [address] Echo Ward MD [address] [place] [address] [place] [address] Allergies No known active allergiesdocumented as [...] from the original note were not included. Echo Ward MD [place] [facility], [place] Cavazos [phone] minutes ago (12:59 PM) Please call and inform a steroid taper has been ordered to start wtih treatment after recent colonoscopy. Biopsies are still pending but c diff is negative. Outgoing call documented in this encounter Plan of Treatment Upcoming Encounters Date Type Department Care Team (Late st Contact Info) Description 06/03/2024 9:00 AM EDT Office Visit [facility] [address] [place] [address] Dayron Mitchell MD [address] [place] [address] Scheduled Procedures Name Priority Associated [...] this encounter Medical Devices Implanted Type Area Overedge Machine Operator Device Identifier Shelf Expiration Date Model / Serial / Lot Biocomposite Corkscrew Ft 4.5 X 14mm Implanted:Qty: 1 on 05/03/2018 by Teri Stokes, at OR [facility] Left: Shoulder [employer] 10/21/2019 AR-1927BCF -45 / / [id number] documented as of this encounter Additional Health Concerns Infection Onset Date Last Indicated Resolved Time C. difficile Rule-Out 08/03/2023 08/03/20232022 12:04 AM EST documented as of this encounter Advance Directives Latest Code Status on File Code Status Date Activated Date Inactivated Comments Full Code 05/03/2018 12:04 PM 05/03/2018 5:54 PM This order reflects the patients wishes and were consensually agreed upon. Care Teams Automobile Club Information Clerk Relationship Specialty Start Date End Date Dayron Mitchell MD [address] [place] [address] PCP - General Family Medicine 08/04/12 documented as of this encounter
--- OUTSIDE RECORDS SUMMARY | 2023-11-05 18:41 | External Medical Summary | Summary of Care ---
Author Name Unknown Organization [facility] Address [address] [place] [facility] [place] [address] Phone [phone] Lab Technician Name Role Phone Dayron Mitchell MD Primary Care Provider [phone] Reason for Visit * Reason Onset Date Comments Test Results 08/04/2023 Encounter Details Date Type Department Care Team (Late st Contact Info) Description 08/04/2023 Telephone ENDO [facility], Endoscopy Room [facility] [address] [facility] [place] [address] Zuhair Wick MD [address] [place], [place] [address]AL[place]AN[place]A Rendon [address] Test Results Allergies No known [...] note were not included. Zuhair Wick MD [facility], [place] I [phone] minutes ago (12:59 PM) Please call and inform a steroid taper has been ordered to start wtih treatment after recent colonoscopy. Biopsies are still pending but c diff is negative. Outgoing call documented in this encounter Plan of Treatment Upcoming Encounters Date Type Department Care Team (Late st Contact Info) Description 06/03/2024 9:00 AM EDT Office Visit [place] [address] [place] [address] Dayron Mitchell MD [address] [place] [address] Scheduled Orders Name Type Priority [...] this encounter Medical Devices Implanted Type Area Mandate Retail Service Merchandiser Device Identifier Shelf Expiration Date Model / Serial / Lot Biocomposite Corkscrew Ft 4.5 X 14mm Implanted:Qty: 1 on 05/03/2018 by Teri Stokes, at OR [facility] Left: Shoulder [employer] 10/21/2019 AR-1927BCF -45 / / [id number] documented as of this encounter Visit Diagnoses [...] and were consensually agreed upon. Care Teams Rd Lab Technician Relationship Specialty Start Date End Date Dayron Mitchell MD [address] [place] [facility] [place] [address] PCP - General Family Medicine 08/04/12 documented as of this encounter
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
--- OUTSIDE RECORDS SUMMARY | 2023-11-05 18:42 | External Medical Summary | Summary of Care ---
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 Role Phone Dayron Mitchell MD Primary Care Provider [phone] Reason for Visit * Auth/Cert Specialty Diagnoses / Procedures Referred By eFlisha mcelroy Referred To Contact Diagnoses Bloody diarrhea Abdominal pain, generalized Bloody diarrhea [R19.7] Abdominal pain, generalized [R10.84] Procedures COLONOSCOPY, DIAGNOSTIC (RECTUM) COLONOSCOPY FLEXIBLE PROXIMAL DIAGNOSTIC Referral ID Status Reason Start Date Expiration Date Visits Re quested Visits Authorized [id number] Encounter Details Date Type Department Care Team (Latest Contact Info) Description 08/03/2023 1:09 PM EST - 08/03/2023 3:17 PM EST Hospital Encounter [facility], Endoscopy Room [facility] [address] [place] [phone] Yvrose Resendez T, DO [address] [place] [id number] Colonoscopy Discharge Disposition: Home - Self Care Allergies No known active allergiesdocumented as of this encounter (statuses as of 08/04/2023) Medications Medication Sig Dispensed Refills Start Date End Date Status Diclofenac Sodium 1 % External Gel (Voltaren)Indicati ons:Arthralgia of both hands Apply 2 g topically to affected area 4 times a day as needed for Pain. 150 g 11 05/10/2021 Active Additional Information Patient not taking.Reported on 06/05/2023 Sildenafil Citrate 100 MG Oral Tablet (Viagra)Indication s:Other male erectile dysfunction Take 1 Tab by mouth daily as needed for Erectile Dysfunction. 10 Tab 5 06/25/2021 Active Additional Information Patient not taking.Reported on 08/13/2022 Tadalafil 5 MG Oral Tablet (Cialis)Indication s:Erectile dysfunction, unspecified erectile dysfunction type Take 1 Tablet by mouth in the morning. 60 Tablet 3 06/05/2023 Active Additional Information Patient not taking.Reported on 07/21/2023 Triamcinolone Acetonide 0.1 % External Cream (Aristocort)Indica tions:Contact dermatitis and eczema Apply topically to affected area 2 times a day as needed (irritation). To affected area. 60 g 5 06/05/2023 Active Additional Information Patient not taking.Reported on 07/21/2023 Saccharomyces boulardii 250 MG Oral Capsule (Florastor)Indicat ions:Bloody diarrhea Take 1 Capsule by mouth in the morning and 1 Capsule before bedtime. 60 Capsule 1 07/22/2023 Active Hyoscyamine Sulfate 0.125 MG Oral Tablet (Levsin) Take 1 Tablet by mouth every 4 hours as needed for Cramping. for abdominal pain 40 Tablet 2 07/24/2023 Active Additional Information Patient not taking.Reported on 07/28/2023 metroNIDAZOLE 500 MG Oral Tablet (Flagyl)Indication s:Bloody diarrhea Take 1 Tablet by mouth in the morning and 1 Tablet at noon and 1 Tablet before bedtime. Do all this for 10 days. until gone.. 30 Tablet 0 07/22/2023 08/01/2023 documented as of this encounter (statuses as [...] Sign Reading Time Taken Comments Blood Pressure 108/69 08/03/2023 3:00 PM EST Pulse 78 08/03/2023 3:00 PM EST Temperature 36.1 C (97 F) 08/03/2023 2:30 PM EST Respiratory Rate 18 08/03/2023 3:00 PM EST Oxygen Saturation 100% 08/03/2023 3:00 PM EST Inhaled Oxygen Concentration - - Weight 89.8 kg (198 lb) 07/28/2023 2:41 PM EST Height 180.3 cm (5' 11") 07/28/2023 2:41 PM EST Body Mass Index 27.62 07/28/2023 2:41 PM EST documented in this encounter H&P Notes * Dipti Yvrose Tova, DO - 08/03/2023 1:26 PM EST Procedure(s): Colonoscopy; with Indication(s) of chronic diarrhea Endoscopy Pre-Procedure Assessment: Prior to the procedure, the patient was identified. The patient's history, medications and allergies were reviewed as per the Anesthesia Assessment. The patient is competent. The risks and benefits of the proposed procedure and the planned sedation were discussed with the patient. All questions were answered and informed consent for the procedure was obtained. BP 152/96 | Pulse 76 | Temp (Src) 98.8 (Tympanic) | Resp 18 | Ht 5' 0" (1.524m) | Wt 165 lbs (74.844kg) | BMI 32.22 kg/m | BSA 1.78 m | SaO2 99% | LMP 10/02/2004 Prior to Admission medications Medication Sig Last Dose Discont. metroNIDAZOLE 500 MG Oral Tablet (Flagyl) Take 1 Tablet by mouth in the morning and 1 Tablet at noon and 1 Tablet before bedtime. Do all this for 10 days. until gone.. 07/28/2023 Saccharomyces boulardii 250 MG Oral Capsule (Florastor) Take 1 Capsule by mouth in the morning and 1 Capsule before bedtime. Past Week Hyoscyamine Sulfate 0.125 MG Oral Tablet (Levsin) Take 1 Tablet by mouth every 4 hours as needed for Cramping. for abdominal pain Patient not taking: Reported on 07/28/2023 Not Taking Tadalafil 5 MG Oral Tablet (Cialis) Take 1 Tablet by mouth in the morning. Patient not taking: Reported on 07/21/2023 Not Taking Triamcinolone Acetonide 0.1 % External Cream (Aristocort) Apply topically to affected area 2 times a day as needed (irritation). To affected area. Patient not taking: Reported on 07/21/2023 Not Taking Sildenafil Citrate 100 MG Oral Tablet (Viagra) Take 1 Tab by mouth daily as needed for Erectile Dysfunction. Patient not taking: Reported on 05/22/2022 Not Taking Diclofenac Sodium 1 % External Gel (Voltaren) Apply 2 g topically to affected area 4 times a day asneeded for Pain. Patient not taking: Reported on 06/05/2023 Not Taking Review of patient's allergies indicates: No Known Allergies Physical Exam: Mental Status Examination: alert and oriented. Airway Examination: normal oropharyngeal airway and neck mobility. Respiratory Examination: clear to auscultation. CV Examination: rrr, no murmurs, no S-3 or S-4. ASA Grade: II - A patient with mild systemic disease. After reviewing the risks and benefits, the patient was deemed in satisfactory condition to undergothe procedure. The anesthesia plan was to use general anesthesia. documented in this encounter Procedure Notes * Echo Ward MD - 08/03/2023 2:04 PM ESTAssociated Order(s): COLONOSCOPY [facility] Patient Name: Christopher Zaragoza Procedure Date: 08/03/2023 2:04 PM Date of : 1970 Admit Type: Outpatient Note Status: Finalized Date of : 1970 Admit Type: Outpatient Age: 53 Room: [facility] 4 Gender: Male Note Status: Finalized Procedure: Colonoscopy Indications: Last colonoscopy: May 2019, Clinically significant diarrhea of unexplained origin Providers: Yvrose Resendez DO (Doctor) Referring MD: Echo Ward MD (Referring MD), Dayron Mitchell MD (Referring MD) Medicines: Propofol per Anesthesia Complications: No immediate complications. Estimated blood loss: Minimal. Procedure: Pre-Anesthesia Assessment: - Prior to the procedure, a History and Physical was performed, and patient medications, allergies and sensitivities were reviewed. The patient's tolerance of previous anesthesia was reviewed. - The risks and benefits of the procedure and the sedation options and risks were discussed with the patient. All questions were answered and informed consent was obtained. - Patient identification and proposed procedure were verified prior to the procedure by the physician and the nurse. The procedure was verified in the pre-procedure area in the procedure room. - Mental Status Examination: alert and oriented. Airway Examination: normal oropharyngeal airway and neck mobility. Respiratory Examination: clear to auscultation. CV Examination: normal. Abdominal Examination: bowel sounds present, abdomen soft and non-tender, no masses or organomegaly noted. - ASA Grade Assessment: II - A patient with mild systemic disease. - The medication list for this patient has been reviewed prior to the procedure and has been determined that the patient may proceed with the planned study. Any medication changes made as a result of the findings of this procedure have been discussed with the patient and/or sales promotion representative at the time of discharge from the facility. After I obtained informed consent, the scope was passed under direct vision. All instruments were visually inspected immediately before and after removal from the patient to ensure they are fully intact. Throughout the procedure, the patient's blood pressure, pulse, and oxygen saturations were monitored continuously. The CF-[id number] Colonoscope ([id number]) was introduced through the anus and advanced to the terminal ileum. The colonoscopy was performed without difficulty. The patient tolerated the procedure well. The quality of the bowel preparation was good. Findings & Specimens: The perianal and digital [...] mucosa in the entire examined colon. Biopsied. Recommendation: - Await pathology results. - Stool for Clostridium difficile toxin sent to the lab. - Return to referring physician as previously scheduled. - Discharge patient to home. Yvrose Tova eRsendez, 08/03/2023 2:32:16 PM This report has been signed electronically. documented in this encounter Nursing Notes * Gali Ocasio RN - 08/03/2023 3:16 PM EST Patient is alert, pain free, and tolerating po fluids prior to discharge. Patient has been visited by Dr. Resendez. Patient has received and demonstrates understanding of discharge instructions. Patient is transported ambulatory to private auto accompanied by mother and endo staff. * Gali Ocasio RN - 08/03/2023 2:42 PM EST Awake, Dr. Resendez talks with pt, questions answered. * Gali Ocasio RN - 08/03/2023 2:30 PM EST Patient transferred to post endo s/p colonoscopy. Patient sedated Respirations are even and unlabored on room air. NSR in the 80's on the monitor. Abdomen soft and non distended. Vital signs stable. * Long Hunt RN - 08/03/2023 2:28 PM EST See anesthesia record for medication administered during procedure. Long Hunt RN Specimen(s) and location(s) verified with physician post procedure 2:28 PM Long Hunt RN Pre cleaning of scope at the bedside started by oxygen equipment technician. No abdominal pressure given * Caridad Vazquez RN - 08/03/2023 1:36 PM EST Pt prepped and ready for anesthesia to assess. Call sanches in reach. documented in this encounter Plan of Treatment Upcoming Encounters Date Type Department Care Team (Late st Contact Info) Description 06/03/2024 9:00 AM EDT Office Visit [facility] [address] [place] [address] Dayron Mitchell MD [address] [place] [address] Pending Results Name Type Priority Associated Diagnoses Date /Time SURGICAL PATHOLOGY Pathology Routine Bloody diarrhea Abdominal pain, generalized 08/03/2023 2:29 PM EST Scheduled Orders Name Type Priority Associated Diagnoses Orde r Schedule SURGICAL PATHOLOGY Pathology Routine Bloody diarrhea Abdominal pain, generalized Release Upon Ordering for 1 Occurrences starting 08/03/2023, 1 completed Scheduled Procedures Name Priority Associated Diagnoses Date/Ti [...] 08/03/2033 Hepatitis B Completed 10/12/1996, 04/22, 04/13/1996 GARDASIL-HPV [...] this encounter Medical Devices Implanted Type Area Asset Management Analyst Device Identifier Shelf Expiration Date Model / Serial / Lot Biocomposite Corkscrew Ft 4.5 X 14mm Implanted:Qty: 1 on 05/03/2018 by Teri Stokes DO at OR [facility] Left: Shoulder [employer] 10/21/2019 [id number] / / [id number] documented as of this encounter Procedures Procedure Name Priority Date/Time Associated Diagnosis Comments CLOSTRIDIUM DIFFICILE, PCR Routine 08/03/2023 3:30 PM EST COLONOSCOPY 08/03/2023 2:04 PM EST documented in this encounter Results * CLOSTRIDIUM DIFFICILE, PCR (08/03/2023 3:30 PM EST) Stool Consistency Liquid 08/04/2023 12:04 AM EST [facility] Clostridium difficile Result Negative. No C. difficile toxin B gene DNA detected by PCR (Amplified Probe). Negative 08/04/2023 12:04 AM EST [facility] Stool Stool specimen / Unknown Non-blood Collection / Unknown 08/03/2023 3:30 PM EST 08/03/2023 3:30 PM EST Yvrose Resendez DO LAB MICRO - GENERAL ORDERABLES [facility] [address] [place] [address] * COLONOSCOPY (08/03/2023 2:04 PM EST) 08/03/2023 2:04 PM EST Narrative Procedure Note Echo Ward MD - 08/03/2023 2:04 PM EST [facility] Patient Name: Christopher Zaragoza Procedure Date: 08/03/2023 2:04 PM Date of : 1970 Admit Type: Outpatient Note Status:Finalized Date of : 1970 Admit Type: Outpatient Age: 53 Room: Endo 4 Gender: Male Note Status: Finalized Procedure: Colonoscopy Indications: Last colonoscopy: May 2019, Clinicallysignificant diarrhea of unexplained origin Providers: Yvrose Resendez DO (Doctor) Referring MD: Ehco Ward MD (Referring MD), Dayron Mitchell MD(Referring MD) Medicines: Propofol per Anesthesia Complications: No immediate complications. Estimated blood loss:Minimal. Procedure: Pre-Anesthesia Assessment: - Prior to the procedure, a History and Physicalwas performed, and patient medications, allergies and sensitivities werereviewed. The patient's tolerance of previous anesthesia was reviewed. - The risks and benefits of the procedure and thesedation options and risks were discussed with the patient. All questions wereanswered and informed consent was obtained. - Patient identification and proposed procedurewere verified prior to the procedure by the physician and the nurse. The procedure wasverified in the pre-procedure area in the procedure room. - Mental Status Examination: alert and oriented.Airway Examination: normal oropharyngeal airway and neck mobility. RespiratoryExamination: clear to auscultation. CV Examination: normal. AbdominalExamination: bowel sounds present, abdomen soft and non-tender, no masses ororganomegaly noted. - ASA Grade Assessment: II - A patient with mildsystemic disease. - The medication list for this patient has beenreviewed prior to the procedure and has been determined that the patient may proceedwith the planned study. Any medication changes made as a result of the findingsof this procedure have been discussed with the patient and/or sales promotion representative atthe time of discharge from the facility. After I obtained informed consent, the scope waspassed under direct vision. All instruments were visually inspected immediatelybefore and after removal from the patient to ensure they are fully intact. Throughout the procedure, the patient's bloodpressure, pulse, and oxygen saturations were monitored continuously. The [id number] ([id number]) was introduced through the anus and advanced to the terminalileum. The colonoscopy was performed without difficulty. The patient tolerated theprocedure well. The quality of the bowel preparation was good. Findings & Specimens: The perianal and digital rectal examinations were normal. Pertinentnegatives include normal sphincter tone and no palpable rectal lesions. The terminal ileum appeared normal. A diffuse area of severely congested, erythematous, friable (withcontact bleeding) and inflamed mucosa was found in the entire colon. Biopsies were taken with a coldforceps for histology. Verification of patient identification for the specimen was done by the physician and using the patient's name and date. Estimated blood loss was minimal. An area of moderately mucosa was found in the rectum. Impression: - The examined portion of the ileum was normal. - Congested, erythematous, friable (with contactbleeding) and inflamed mucosa in the entire examined colon. Biopsied. Recommendation: - Await pathology results. - Stool for Clostridium difficile toxin sent to thelab. - Return to referring physician as previouslyscheduled. - Discharge patient to home. Yvrose Resendez DO 08/03/2023 2:32:16 PM This report has been signed electronically. Echo Ward MD [facility] documented in this encounter Visit Diagnoses Diagnosis Bloody diarrhea Diarrhea Abdominal pain, generalized documented in this encounter Administered Medications Inactive Administered Medications - up to 3 most recent administrations Medication Order MAR Action Action Date Dose Rate Site Acetaminophen (Tylenol) tab 650 mg 650 mg, Oral, PRN Pain, Mild, Starting on Thu08/03/23 at 1436, Until Thu08/03/23 at 1919, For 1 dose, Maximum of 4 grams (4000 mg) per day., Post-op isolyte-S pH 7.4 infusion Intravenous, at 75 mL/hr, for Outpatient patient Plasma-LYTE 148, isolyte-S, and isolyte-S pH 7.4 are considered equivalent - including for MAR barcode scanning., CONTINUOUS, Starting on Thu08/03/23 at 1400, Until Thu08/03/23 at 1919, Pre-Op Continue from Pre-Op 08/03/2023 2:08 PM EST 75 mL/hr New Bag 08/03/2023 1:36 PM EST 75 mL/hr 75 mL/hr documented in this encounter Active and Recently Administered Medications Times are shown in EST. Continuous Medication Order 08/01/2023 08/02/2023 08/03/2023 isolyte-S pH 7.4 infusion Intravenous, at 75 mL/hr, for Outpatient patient Plasma-LYTE 148, isolyte-S, and isolyte-S pH 7.4 are considered equivalent - including for MAR barcode scanning., CONTINUOUS, Starting on Thu08/03/23 at 1400, Until Thu08/03/23 at 1919, Pre-Op 1336 (New Bag - Prov ider: Caridad Vazquez RN)1408 (Continue from Pre-Op - Provider: Kristin Cruz CRNA)1433 (Anes Intra-Op Fluid - Provider: Kristin Cruz CRNA) PRN Medication Order 08/01/2023 08/02/2023 08/03/2023 Acetaminophen (Tylenol) tab 650 mg 650 mg, Oral, PRN Pain, Mild, Starting on Thu08/03/23 at 1436, Until Thu08/03/23 at 1919, For 1 dose, Maximum of 4 grams (4000 mg) per day., Post-op documented in this encounter Additional Health Concerns Infection Onset Date Last Indicated Resolved Time C. difficile Rule-Out 08/03/2023 08/03/20232022 12:04 AM EST documented as of this encounter Advance Directives Latest Code Status on File Code Status Date Activated Date Inactivated Comments Full Code 05/03/2018 12:04 PM 05/03/2018 5:54 PM This order reflects the patients wishes and were consensually agreed upon. Care Teams Cement Mason Maintenance Relationship Specialty Start Date End Date Dayron Mitchell MD [address] [place] [address] PCP - General Family Medicine 08/04/12 documented as of this encounter
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
--- OUTSIDE RECORDS SUMMARY | 2023-11-05 18:42 | External Medical Summary | Summary of Care ---
Author Name Unknown Organization [facility] Address [address] [place] [address] Phone [phone] Care Team Providers Care Process Worker Name Role Phone Dayron Mitchell MD Primary Care Provider [phone] Encounter Details Date Type Department Care Team (Late st Contact Info) Description 08/04/2023 Telephone [facility]O [facility], Endoscopy Room [facility] [address] [place] [address] Echo Ward MD [address] [place] [address] [place] [address] Allergies No known active allergiesdocumented as [...] AM EDT Office [facility] [address] [facility] [address] [facility] [address] [facility] [address] Scheduled Procedures Name Priority Associated Diagnoses Date/Ti [...] 05/21/2021, Additional history exists Colonoscopy 08/03/2033 08/03/2023, 090 12/2018, 05/25/2019 Colorectal Cancer Screening 08/03/2033 Hepatitis [...] this encounter Medical Devices Implanted Type Area Featherer Device Identifier Shelf Expiration Date Model / Serial / Lot Biocomposite Corkscrew Ft 4.5 X 14mm Implanted:Qty: 1 on 05/03/2018 by Teri Stokes, at OR [facility] Left: Shoulder [employer] 10/21/2019 AR-1927BCF -[id number] / / [id number] documented as of this encounter Additional Health Concerns Infection Onset Date Last Indicated Resolved Time C. difficile Rule-Out 08/03/2023 08/03/20232022 12:04 AM EST documented as of this encounter Advance Directives Latest Code Status on File Code Status Date Activated Date Inactivated Comments Full Code 05/03/2018 12:04 PM 05/03/2018 5:54 PM This order reflects the patients wishes and were consensually agreed upon. Care Teams Process Worker Relationship Specialty Start Date End Date Dayron Mitchell MD [address] [place], [place] [phone] PCP - General Family Medicine 08/04/12 documented as of this encounter
--- OUTSIDE RECORDS SUMMARY | 2023-11-05 18:42 | External Medical Summary | Summary of Care ---
Author Name Unknown Organization [facility] Address [address] [place] [address] Phone [phone] Care Team Providers Care Manager Culinary Name Role Phone Dayron Mitchell MD Primary Care Provider [phone] Encounter Details Date Type Department Care Team (Late st Contact Info) Description 07/21/2023 Telephone [facility] [address] [place] [address] Dayron Mitchell MD [address] [place] [address] Allergies No known active allergiesdocumented as of [...] money to buy more. Never true 05/12/20 22 Within the past 12 months, t he [...] encounter Miscellaneous Notes * Telephone Encounter - Elsa Miguel OSA - 07/21/2023 10:05 AM EDT Patient would like to go to to schedule. He couldn't schedule at checkout. Dx: Bloody diarrhea [R19.7] - Primary Abdominal pain, generalized [R10.84] Please call patient to schedule. 07/21/2023 documented in this encounter Plan of Treatment Upcoming Encounters Date Type Department Care Team (Late st Contact Info) Description 06/03/2024 9:00 AM EDT Office Visit [facility] [address] [place] [address] Dayron Mitchell MD [address] [place] [address] Scheduled Procedures Name Priority Associated [...] 06/09/2023, 0910/2021, 05/21/2021, Additional history exists Colonoscopy 05/25/2029 05/25/2019, [...] this encounter Medical Devices Implanted Type Area Package Line Relief Operator Device Identifier Shelf Expiration Date Model / Serial / Lot Biocomposite Corkscrew Ft 4.5 X 14mm Implanted:Qty: 1 on 05/03/2018 by Teri Stokes, DO at OR [facility] Left: Shoulder [employer] 10/21/2019 AR-1927BCF -45 / / [id number] documented as of this encounter Advance Directives Latest Code Status on File Code Status Date Activated Date Inactivated Comments Full Code 05/03/2018 12:04 PM 05/03/2018 5:54 PM This order reflects the patients wishes and were consensually agreed upon. Care Teams Manager Culinary Relationship Specialty Start Date End Date Dayron Mitchell MD [address] [place] [address] PCP - General Family Medicine 08/04/12 documented as of this encounter
--- OUTSIDE RECORDS SUMMARY | 2023-11-05 18:42 | External Medical Summary | Summary of Care ---
Author Name Unknown Organization [facility] Address [address] [place] [address] Phone [phone] Care Team Providers Care Caster Investment Casting Name Role Phone Dayron Mitchell MD Primary Care Provider [phone] Reason for Referral * Medication Prior Authorization - Pending Review Specialty Diagnoses / Procedures Referred By Felisha t Referred To Contact Diagnoses Bloody diarrhea Mariposa Arvizu PA-C [address] [place] [address] Referral ID Status Reason Start Date Expiration Date V isits Requested Visits Authorized [id number] Pending Review [phone] Encounter Details Date Type Department Care Team (Late st Contact Info) Description 07/22/2023 Orders Only [facility] [address] [place] [phone] Mariposa Arvizu PA-C [address] [place], [place] [id number] Bloody diarrhea* Allergies No known active allergiesdocumented as of [...] Additional Information Patient not taking.Reported on 07/21/2023 metroNIDAZOLE 500 MG Oral Tablet (Flagyl)Indication s:Bloody diarrhea Take 1 Tablet by mouth in the morning and 1 Tablet at noon and 1 Tablet before bedtime. Do all this for 10 days. until gone.. 30 Tablet 0 07/22/2023 08/01/2023 Active Saccharomyces boulardii 250 MG Oral Capsule (Florastor)Indicat ions:Bloody diarrhea Take 1 Capsule by mouth in the morning and 1 Capsule before bedtime. 60 Capsule 1 07/22/2023 Active documented as of this encounter (statuses [...] Description 06/03/2024 9:00 AM EDT Office Visit [facility] [address] [facility] [address] Dayron Mitchell MD [address] [place] [address] Scheduled Orders Name Type Priority Associated Diagnoses Orde r Schedule CRP (INFLAMMATORY MARKER) Lab Routine Bloody diarrhea Expected: 07/22/2023 (Approximate), Expires: 07/21/2024 Scheduled Procedures Name Priority Associated Diagnoses Date/Ti [...] this encounter Medical Devices Implanted Type Area Lockstitch Shoulder Joiner Device Identifier Shelf Expiration Date Model / Serial / Lot Biocomposite Corkscrew Ft 4.5 X 14mm Implanted:Qty: 1 on 05/03/2018 by Teri Stokes, at OR [facility] Left: Shoulder [employer] 10/21/2019 AR-1927BCF -45 / / [id number] documented as of this encounter Visit Diagnoses Diagnosis Bloody diarrhea- Primary Diarrhea documented in this encounter Additional Health Concerns Infection Onset Date Last Indicated Resolved Time Gastrointestinal Rule-Out 07/21/2023 07/21/2023 9:48 AM EDT documented as of this encounter Advance Directives Latest Code Status on File Code Status Date Activated Date Inactivated Comments Full Code 05/03/2018 12:04 PM 05/03/2018 5:54 PM This order reflects the patients wishes and were consensually agreed upon. Care Teams Caster Investment Casting Relationship Specialty Start Date End Date Dayron Mitchell MD [address] [place] [address] PCP - General Family Medicine 08/04/12 documented as of this encounter
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
--- OUTSIDE RECORDS SUMMARY | 2023-11-05 18:42 | External Medical Summary ---
Author Name Unknown Address Unknown Organization K01:[facility] [place] [address] [place] [address] Laboratory Report Ordering Provider Test Date Status MINNIE SULTANA 08/03/2023 15:30:47 Final Observation Date Value Abnormality Reference (Units) Status Source 08/03/2023 15:30:47 Liquid Final Clostridioides difficile toxin and BI-[id number] strain DNA panel - Stool by ANAYELI with probe detection 08/03/2023 15:30:47 Negative. No C. difficile toxin B gene DNA detected by PCR (Amplified Probe). Negative Final Performing Location [facility] [address] [facility] [address]
--- OUTSIDE RECORDS SUMMARY | 2023-11-05 18:43 | External Medical Summary ---
Author Name Unknown Address Unknown Organization : Laboratory Report Ordering Provider Test Date Status DAVIS GAMBLE 07/21/2023 11:17:30 Final Observation Date Value Abnormality Reference (Units ) Status Ova and parasites identified in Stool by Trichrome stain--3rd specimen 07/21/2023 11:17:30 SEE BELOW Final Ova and Parasites, Concentra te and Permanent Smear
Examination for Ova and Parasites
SOURCE : STOOL
Result/Comment:
NO OVA AND PARASITES SEEN.
Reference Range: No Ova and Parasites seen
Routine Ova and Parasite Exam may not detect some
parasites that occasionally cause diarrheal illness.
Cryptosporidium Antigen and/or Cyclospora and Isospora
Exam may be ordered to detect these parasites.
One negative sample does not necessarily rule out the
presence of a parasitic infection.
Assay performed by wet mount after concentration.
Parasite Exam, Trichrome Stain
SOURCE : STOOL
Result/Comment:
NO OVA AND PARASITES SEEN.
Routine Ova and Parasite Exam may not detect some
parasites that occasionally cause diarrheal illness.
Cryptosporidium Antigen and/or Cyclospora and Isospora
Exam may be ordered to detect these parasites.
One negative sample does not necessarily rule out the
presence of a parasitic infection.
For additional information, please refer to
https://education.[employer]/faq/QHL661
(This link is being provided for informational/
educational purposes only.)

Test Performed at:
[facility]
[address] [facility]
[place] [address]
Manuelito Guerra M.D., Ph.D.,Director of Laboratories Performing Location
--- OUTSIDE RECORDS SUMMARY | 2023-11-05 18:43 | External Medical Summary | Summary of Care ---
Author Name Unknown Organization [facility] Address [address] [place] [address] Phone [phone] Care Team Providers Care Inserter Promotional Item Name Role Phone Dayron Mitchell MD Primary Care Provider [phone] Encounter Details Date Type Department Care Team (Late st Contact Info) Description 07/21/2023 Telephone [facility] [address] [place] [address] Dayron Mitchell MD [address] [place] [address] Allergies No known active allergiesdocumented [...] Description 06/03/2024 9:00 AM EDT Office Visit [facility] [address] [place] [address] Dayron Mitchell MD [address] [place] [address] Scheduled Procedures Name Priority Associated [...] this encounter Medical Devices Implanted Type Area Pie Crust Mixer Device Identifier Shelf Expiration Date Model / Serial / Lot Biocomposite Corkscrew Ft 4.5 X 14mm Implanted:Qty: 1 on 05/03/2018 by Teri Stokes, DO at OR [facility] Left: Shoulder [employer] 10/21/2019 AR-1927BCF -45 / / [id number] documented as of this encounter Advance Directives Latest Code Status on File Code Status Date Activated Date Inactivated Comments Full Code 05/03/2018 12:04 PM 05/03/2018 5:54 PM This order reflects the patients wishes and were consensually agreed upon. Care Teams Inserter Promotional Item Relationship Specialty Start Date End Date Dayron Mitchell MD [address] [place] [address] PCP - General Family Medicine 08/04/12 documented as of this encounter
--- OUTSIDE RECORDS SUMMARY | 2023-11-05 18:43 | External Medical Summary | Summary of Care ---
Author Name Unknown Organization [facility] Address [address] [place] [address] Phone [phone] Care Team Providers Care Administrative Underwriter Name Role Phone Dayron Mitchell MD Primary Care Provider Reason for Visit * Reason Comments Outpatient Testing Encounter Details Date Type Department Care Team (Late st Contact Info) Description 07/21/2023 10:10 AM EDT Laboratory [facility], [place] [address] [place] [address] [place] [address] [place] [address] Bloody diarrhea; Abdominal pain, generalized Allergies No [...] Description 06/03/2024 9:00 AM EDT Office Visit [facility] [address] [place] [id number] Dayron Mitchell MD [address] [place] [address] Pending Results Name Type Priority Associated Diagnoses [...] Abdominal pain, generalized 07/21/2023 10:12 AM EDT Scheduled Procedures Name Priority Associated [...] this encounter Medical Devices Implanted Type Area Java Jsf Developer Device Identifier Shelf Expiration Date Model / Serial / Lot Biocomposite Corkscrew Ft 4.5 X 14mm Implanted:Qty: 1 on 05/03/2018 by Teri Stokes, at [facility] Left: Shoulder [employer] 10/21/2019 [id number] / / [id number] documented as of this encounter Visit Diagnoses Diagnosis Bloody diarrhea Diarrhea Abdominal pain, generalized documented in this encounter Advance Directives Latest Code Status on File Code Status Date Activated Date Inactivated Comments Full Code 05/03/2018 12:04 PM 05/03/2018 5:54 PM This order reflects the patients wishes and were consensually agreed upon. Care Teams Administrative Underwriter Relationship Specialty Start Date End Date Dayron Mitchell MD [address] [place] [address] PCP - General Family Medicine 08/04/12 documented as of this encounter
--- OUTSIDE RECORDS SUMMARY | 2023-11-05 18:43 | External Medical Summary ---
Author Name Unknown Address Unknown Organization [id number]:[facility] - [address] [place] [id number] Laboratory Report Ordering Provider Test Date Status DAVIS GAMBLE 07/21/2023 10:12:44 Final Observation Date Value Abnormality Reference (Units ) Status Erythrocyte sedimentation rate by Photometric method 07/21/2023 10:12:44 20 Above high normal <20 (mm/hour) Final Performing Location [facility] - [address] [place] [address]
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
--- OUTSIDE RECORDS SUMMARY | 2023-11-05 18:43 | External Medical Summary ---
Author Name Unknown Address Unknown Organization [id number]:[facility] - [address] [facility] [place] [address] Laboratory Report Ordering Provider Test Date Status NIDA ANAND 06/09/2023 10:41:41 Final Observation Date Value Abnormality Reference (Units ) Status Triglyceride 06/09/2023 10:41:41 99 <=174 ( mg/dL) Final Triglyceride Reference Range s (mg/dL):
<150 Acceptable
150-174 Borderline high
175-499 High
>=500 Very high Cholesterol 06/09/2023 10:41:41 189 <200 (mg /dL) Final Total Cholesterol Reference Ranges (mg/dL):
<200 Desirable
200-239 Borderline high
>=240 High HDL 06/09/2023 10:41:41 36 Below low normal >39 (mg/dL) Final HDL Cholesterol Reference Ra nges (mg/dL):
>=60 High (Desirable)
<50 Low (Undesirable) For Females
<40 Low (Undesirable) For Males NON-HDL CHOLESTEROL 06/09/2023 10:41:41 153 <=159 (mg/dL) Final Non-HDL Cholesterol Referenc e Range (mg/dL):
<100 Target level for high risk ASCVD patient
<130 Optimal for general population
130-159 Near optimal for general population
160-189 Borderline High
190-219 High
>=220 Very High LDL, (calculated) 06/09/2023 10:41:41 133 Above high n ormal <=129 (mg/dL) Final LDL Cholesterol Reference Ra nges (mg/dL):
<70 Target level for high risk ASCVD patient
<100 Optimal for general population
100-129 Near optimal for general population
130-159 Borderline high
160-189 High
>=190 Very high Performing Location [facility] - [address] [facility] [address]
--- OUTSIDE RECORDS SUMMARY | 2023-11-05 18:43 | External Medical Summary | Summary of Care ---
Author Name Unknown Organization [facility] Address [address] [place] [address] Phone [phone] Care Team Providers Care Property Maintenance Supervisor Name Role Phone Dayron Mitchell MD Primary Care Provider [phone] Reason for Referral * Ancillary Services (Within 30 days (routine)) - Pending Review Specialty Diagnoses / Procedures Referred By Felisha mcelroy Referred To Contact Gastroenterology Diagnoses Bloody diarrhea Abdominal pain, generalized Mariposa Arvizu PA-C [address] [place] [address] Referral ID Status Reason Start Date Expiration Date Visits Requested Visits Authorized [id number] Pending Review Ancillary Services Required 3 [phone] Question Answer Referral Priority Within 30 days (routine) Where should this appointment be scheduled? [facility] Comments ALERT: Do not order for pediatric patients (18 years or younger). Cancel off screen and order PEDS GASTROENTEROLOGY CONSULT (Type: 1 visit only-Evaluate and Treat) The following Pt. Instructions are available: - Gastro Colonoscopy Prep Instructions [75199] - Gastro Colonoscopy Prep Instructions (Bengali Version) [[id number]] Go to the Pt. Instructions section within the Visit Navigator to access. Colonoscopy ASGE Guidelines: Blood tinged diarrhea ADDITIONAL INFORMATION 1. Is the patient on Coumadin? No 2. Is the patient on Pradaxa? No * (Within 10 days (routine)) - Pending Review Specialty Diagnoses / Procedures Referred By Contac t Referred To Contact Diagnoses Bloody diarrhea Abdominal pain, generalized Procedures CALPROTECTIN, STOOL Mariposa Arvizu PA-C [address] [place] [address] Referral ID Status Reason Start Date Expiration Date V isits Requested Visits Authorized [id number] Pending Review 07/21/2023 999 999 Reason for Visit * Reason Comments Acute Pt presents with jude rrhea that started 07/10 that has worsened. States there has been blood in the diarrhea as well. Encounter Details Date Type Department Care Team (Late st Contact Info) Description 07/21/2023 9:40 AM EDT Office Visit [facility] [address] [place] [id number] Mariposa Arvizu PA-C [address] [place], [place] [id number] Bloody diarrhea*; Abdominal pain, generalized Allergies No known active [...] Sign Reading Time Taken Comments Blood Pressure 104/74 07/21/2023 9:39 AM EDT Pulse 80 07/21/2023 9:39 AM EDT Temperature 35.6 C (96 F) 07/21/2023 9:39 AM EDT Respiratory Rate 16 07/21/2023 9:39 AM EDT Oxygen Saturation - - Inhaled Oxygen Concentration - - Weight 92.4 kg (203 lb 12.8 oz) 07/21/2023 9:39 AM EDT Height - - Body Mass Index 29.24 06/05/2023 8:56 AM EDT documented in this encounter Progress Notes * Mariposa Arvizu PA-C - 07/21/2023 9:42 AM EDT Images from the original note were not included. History of Present Illness Christopher Zaragoza DDS is a 53 year old male that presents for Acute (Pt presents with diarrhea that started 07/10 that has worsened. States there has been blood in the diarrhea as well.) Here for eval of bloody diarrhea. Has been going on now for over 10 days. Consistent diarrhea since No normal stools Some pain - this is more cramping associated with the need to stool No one else In the house is sick No new or questionable foods Only fever was this morning. Fatigued Urine getting darker - more difficult to stay hydrated Down 12 lbs from this. Impression: - The examined portion of the distal terminal ileum appeared normal. - Mucosal ulceration on the IC valve. - The examined colon appeared normal. Biopsied. - Internal hemorrhoids. Recommendation: - Await pathology results. - Repeat colonoscopy for surveillance based on pathology results. Path showed eosinophils Thought to be related to IB use Stopped and no furthers issues Physical Exam Vitals: 07/21/23 0939 Temp: 35.6 C (96 F) Pulse: 80 Resp: 16 BP: 104/74 BP Readings from Last 3 Encounters: 07/21/23 104/74 06/05/23 102/60 05/22/22 100/66 Wt Readings from Last 3 Encounters: 07/21/23 92.4 kg (203 lb 12.8 oz) 06/05/23 97.8 kg (215 lb 9.6 oz) 08/13/22 97.5 kg (215 lb) BMI Readings from Last 3 Encounters: 07/21/23 29.24 kg/m 06/05/23 30.94 kg/m 08/13/22 30.85 kg/m Ht Readings from Last 3 Encounters: 06/05/23 1.778 m (5' 10") 08/13/22 1.778 m (5' 10") 05/22/22 1.778 m (5' 10") General: alert, healthy, and no distress Head: Normocephalic, No masses, lesions, tenderness or abnormalities Eye Exam: PERRLA, extraocular movements intact, conjunctiva are pink and non- injected, sclera clear Heart: regular rate & rhythm, no murmur, no gallops, S-1 normal, and S-2 normal Lungs: chest symmetric with normal AP diameter, no chest deformities noted, no chest wall tenderness, lungs clear to auscultation Abdomen: abdomen soft, normal bowel sounds, no masses or organomegaly, and generalized ttp - no focal points of tenderness,. Neg Mcgarry;s neg rosvigs, Back: back symmetric, no curvature, no costovertebral angle tenderness, range of motion is normal Extremities: less than 2 second capillary refill, no joint deformities, effusion, or inflammation Skin: skin color, texture, turgor are normal, no rashes or significant lesions Assessment and Plan Bloody diarrhea (Primary) - CBC WITH WBC DIFFERENTIAL; Future; Expected date: 07/21/2023 - ERYTHROCYTE SEDIMENTATION RATE (ESR); Future; Expected date: 07/21/2023 - CALPROTECTIN, STOOL; Future; Expected date: 07/21/2023 - GASTROINTESTINAL PATHOGEN PANEL, STOOL; Future; Expected date: 07/21/2023 - OVA AND PARASITES, CONCENTRATE AND PERMANENT SMEAR; Future; Expected date: 07/21/2023 - COLONOSCOPY, GI REFERRAL OP Abdominal pain, generalized - CBC WITH WBC DIFFERENTIAL; Future; Expected date: 07/21/2023 - ERYTHROCYTE SEDIMENTATION RATE (ESR); Future; Expected date: 07/21/2023 - CALPROTECTIN, STOOL; Future; Expected date: 07/21/2023 - GASTROINTESTINAL PATHOGEN PANEL, STOOL; Future; Expected date: 07/21/2023 - OVA AND PARASITES, CONCENTRATE AND PERMANENT SMEAR; Future; Expected date: 07/21/2023 - COLONOSCOPY, GI REFERRAL OP Brat diet Push fluids No acute abd signs, non toxic Will loop in GI Ask a doc sent Wrap-Up Time: I spent a total of 20-29 minutes (exact time 27 mins) on the date of service in preparation, delivery, and documentation of the care provided to Christopher Zaragoza DDS excluding any time spent in the performance of separately billed services. Mariposa Arvizu PA-C 07/21/2023 9:57 AM documented in this encounter Nursing Notes * Francia Lazaro MED ASSIST - 07/21/2023 9:39 AM EDT The patient has been properly identified by confirmation of name and date of . Chief Complaint Patient presents with Acute Pt presents with diarrhea that started 07/10 that has worsened. States there has been blood in the diarrhea as well. documented in this encounter Plan of Treatment Upcoming Encounters Date Type Department Care Team (Late st Contact Info) Description 06/03/2024 9:00 AM EDT Office Visit [facility] [address] [place] [address] Dayron Mitchell MD [address] [place] [address] Pending Results Name Type Priority Associated Diagnoses Date /Time CBC WITH WBC DIFFERENTIAL Lab Routine Bloody diarrhea Abdominal pain, generalized 07/21/2023 10:12 AM EDT ERYTHROCYTE SEDIMENTATION RATE (ESR) Lab Routine Bloody diarrhea Abdominal pain, generalized 07/21/2023 10:12 AM EDT Scheduled Orders Name Type Priority Associated Diagnoses Orde r Schedule CBC WITH WBC DIFFERENTIAL Lab Routine Bloody diarrhea Abdominal pain, generalized Expected: 07/21/2023 (Approximate), Expires: 07/21/2024 ERYTHROCYTE SEDIMENTATION RATE (ESR) Lab Routine Bloody diarrhea Abdominal pain, generalized Expected: 07/21/2023 (Approximate), Expires: 07/20/2024 CALPROTECTIN, STOOL Lab Routine Bloody diarrhea Abdominal pain, generalized Expected: 07/21/2023, Expires: 07/21/2024 GASTROINTESTINAL PATHOGEN PANEL, STOOL Lab Routine Bloody diarrhea Abdominal pain, generalized Expected: 07/21/2023 (Approximate), Expires: 07/20/2024 OVA AND PARASITES, CONCENTRATE AND PERMANENT SMEAR Lab Routine Bloody diarrhea Abdominal pain, generalized Expected: 07/21/2023, Expires: 07/21/2024 Scheduled Procedures Name Priority Associated Diagnoses Date/Ti me COLONOSCOPY FLEXIBLE PROXIMA L DIAGNOSTIC Recall Special screening for malignant neoplasm of colon Scheduled Referrals Name Type Priority Associated Diagnoses Orde r Schedule COLONOSCOPY, GI REFERRAL OP Referral Within 30 days (routine) Bloody diarrhea Abdominal pain, generalized Ordered: 07/21/2023 Health Maintenance Due Date Last Done Comments [...] this encounter Medical Devices Implanted Type Area Oracle Adf Consultant Device Identifier Shelf Expiration Date Model / Serial / Lot Biocomposite Corkscrew Ft 4.5 X 14mm Implanted:Qty: 1 on 05/03/2018 by Teri Stokes, at OR [facility] Left: Shoulder [employer] 10/21/2019 [id number] / / [id number] documented as of this encounter Visit Diagnoses Diagnosis Bloody diarrhea- Primary Diarrhea Abdominal pain, generalized documented in this encounter Advance Directives Latest Code Status on File Code Status Date Activated Date Inactivated Comments Full Code 05/03/2018 12:04 PM 05/03/2018 5:54 PM This order reflects the patients wishes and were consensually agreed upon. Care Teams Property Maintenance Supervisor Relationship Specialty Start Date End Date Dayron Mitchell MD [address] [place] [address] PCP - General Family Medicine 08/04/12 documented as of this encounter
--- OUTSIDE RECORDS SUMMARY | 2023-11-05 18:43 | External Medical Summary ---
Author Name Unknown Address Unknown Organization [id number]:LABORATORY [facility] [place] - [facility] [address] [place] [address] Laboratory Report Ordering Provider Test Date Status DAVIS GAMBLE 07/21/2023 10:12:44 Final Observation Date Value Abnormality Reference (Units ) Status WBC, Total 07/21/2023 10:12:44 10.83 Above high normal 4.00-10.80 (K/uL) Final RBC 07/21/2023 10:12:44 6.00 4.50-5.25 (M/uL) Final Hemoglobin 07/21/2023 10:12:44 17.3 Above high normal 14.0-16.8 (g/dL) Final HCT 07/21/2023 10:12:44 54.0 Above high normal 40.0-48.4 (%) Final MCV 07/21/2023 10:12:44 90.0 82.0-99.5 (fL) Final MCH 07/21/2023 10:12:44 28.8 27.0-34.0 (pg) Final MCHC 07/21/2023 10:12:44 32.0 32.0-36.0 (g/dL) Final RDW 07/21/2023 10:12:44 12.7 11.5-15.5 (%) Final Platelets 07/21/2023 10:12:44 240 140-400 (K/uL) Final MPV 07/21/2023 10:12:44 11.3 6.6-11.1 (fL) Final Nucleated erythrocytes/100 leukocytes [Ratio] in Blood by Automated count 07/21/2023 10:12:44 0 <=0 (/100 WBCs) Final Performing Location LABORATORY [facility] [place] - [address] [place] [address]
--- OUTSIDE RECORDS SUMMARY | 2023-11-05 18:43 | External Medical Summary ---
Author Name Unknown Address Unknown Organization [id number]:[place] [facility] [place] [address] [facility] [address] Laboratory Report Ordering Provider Test Date Status DAVIS GAMBLE 07/21/2023 10:12:44 Final Observation Date Value Abnormality Reference (Units ) Status SYNC LEUKOCYTES IN BLOOD BY AUTOMATED COUNT 07/21/2023 10:12:44 10.83 Above high normal 4.00-10.80 (K/uL) Final Segs 07/21/2023 10:12:44 70.1 40.0-75.0 (%) Final Lymphs % 07/21/2023 10:12:44 12.8 Below low normal 18.0-42.0 (%) Final Monos 07/21/2023 10:12:44 10.3 1.0-11.0 (%) Final Eosinophils 07/21/2023 10:12:44 4.3 0.0-6.0 (%) Final Basos 07/21/2023 10:12:44 1.1 0.0-2.0 (%) Final Immature Granulocyte, Percent 07/21/2023 10:12:44 1.4 0.0-2.0 (%) Final Absolute Segs 07/21/2023 10:12:44 7.58 1.80-7.70 (K/uL) Final Lymphs, absolute 07/21/2023 10:12:44 1.39 1.00-4.80 (K/ul) Final Monos, Abs 07/21/2023 10:12:44 1.12 Above high normal 0.00-1.10 (K/uL) Final Eos, Abs 07/21/2023 10:12:44 0.47 0.00-0.70 (K/uL) Final Basos, Abs 07/21/2023 10:12:44 0.12 0.00-0.20 (K/uL) Final Immature Granulocytes, Number 07/21/2023 10:12:44 0.15 0.00-0.20 (K/uL) Final Performing Location [place] [facility] [place] [facility] [address] [facility] [address]
--- OUTSIDE RECORDS SUMMARY | 2023-11-05 18:43 | External Medical Summary ---
Author Name Unknown Address Unknown Organization : Laboratory Report Ordering Provider Test Date Status DAVIS GAMBLE 07/21/2023 11:17:30 Final Observation Date Value Abnormality Reference (Units ) Status Calprotectin [Mass/mass] in Stool 07/21/2023 11:17:30 6770 Above high normal (mcg/g) Final Reference Range:
[...] suggested for borderline
values.
Test performed by [employer]
[address] [place] [address]

Electric Screw Driver Operator: Twyla Cash MD,PHD,BRONWYN
Test Reported by [facility],
[employer],
[address] [place], [place]
Manuelito Guerra M.D., Ph.D., Director of Laboratories
, JAY [id number] Performing Location
--- OUTSIDE RECORDS SUMMARY | 2023-11-05 18:43 | External Medical Summary ---
Author Name Unknown Address Unknown Organization [id number]:LABORATORY [facility] [place] - [address] [place] [address] Laboratory Report Ordering Provider Test Date Status DAVIS GAMBLE 07/21/2023 10:12:44 Final Observation Date Value Abnormality Reference (Units ) Status Variant lymphocytes [Presence] in Blood by Light microscopy 07/21/2023 10:12:44 Present Abnormal None Seen Final Performing Location LABORATORY [facility] [place] - [address] [place] [address]
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
--- OUTSIDE RECORDS SUMMARY | 2023-11-05 18:43 | External Medical Summary ---
Author Name Unknown Address Unknown Organization K01:LABORATORY [facility] [place] - [address] [place] [id number] Laboratory Report Ordering Provider Test Date Status DAVIS GAMBLE 07/21/2023 11:17:30 Final Observation Date Value Abnormality Reference (Units) Status Bacteria identified in Specimen by Culture 07/21/2023 11:17:30 No Aeromonas species or Plesiomonas species isolated. Final Test: Gastrointestinal Patho gen Panel Culture
Specimen Source: Stool
Specimen Type: Stool
Specimen Date: 07/21/2023 11:17 AM
Result Date: 07/24/2023 12:10 PM
Result Status: Final result
Resulting Lab: LABORATORY [facility] [place]
[address]
[place] [id number]

CULTURE

No Aeromonas species or Plesiomonas species isolated.

null Performing Location LABORATORY [facility] [place] - [address] [place] [id number]
--- OUTSIDE RECORDS SUMMARY | 2023-11-05 18:43 | External Medical Summary ---
Author Name Unknown Address Unknown Organization K01:LABORATORY [facility] [place] - [address] [facility] [address] Laboratory Report Ordering Provider Test Date Status NIDA ANAND 06/09/2023 10:41:41 Final Observation Date Value Abnormality Reference (Units ) Status HbA1C 06/09/2023 10:41:41 5.8 Above high normal 4. 0-5.6 (%) Final The use of HbA1c to monitor glycemic status is based on normal hemoglobin and HbA composition. This test should not be used in patients with abnormal hemoglobin that affects the half life of the red blood cell or the in vivo glycation rates. Glucose, estimated average 06/09/2023 10:41:41 120 <126 (mg/dL) Final Performing Location LABORATORY [facility] [place] - [address] [facility] [address]
--- OUTSIDE RECORDS SUMMARY | 2023-11-05 18:43 | External Medical Summary ---
Author Name Unknown Address Unknown Organization K01:[facility]ATORY [facility] [place] [address] [facility] [address] Laboratory Report Ordering Provider Test Date Status NIDA ANAND 06/09/2023 10:41:41 Final Observation Date Value Abnormality Reference (Units ) Status BUN 06/09/2023 10:41:41 15 6-20 (mg/dL) Final Creatinine 06/09/2023 10:41:41 1.1 0.6-1.2 (mg/dL) Final Glomerular filtration rate/1.73 sq M.predicted [Volume Rate/Area] in Serum, Plasma or Blood by Creatinine-based formula (CKD-EPI) 06/09/2023 10:41:41 81 >=60 (mL/min) Final eGFR is calculated based on the CKD-EPI 2020 equation SODIUM 06/09/2023 10:41:41 140 135-146 (m mol/L) Final Potassium 06/09/2023 10:41:41 5.2 Above high normal 3. 5-5.1 (mmol/L) Final Cl 06/09/2023 10:41:41 104 98-107 (mm ol/L) Final CO2 06/09/2023 10:41:41 27 22-32 (mmo l/L) Final Anion gap 06/09/2023 10:41:41 9 7-15 (mmol /L) Final Glucose 06/09/2023 10:41:41 99 70-120 (mg /dL) Final Albumin 06/09/2023 10:41:41 4.6 3.8-5.0 (g /dL) Final AST (Aspartate aminotransferase) 06/09/2023 10:41:41 25 10-50 (U/L) Fin al Alk Phos 06/09/2023 10:41:41 60 35-130 (U/ L) Final Bilirubin, Total 06/09/2023 10:41:41 0.4 <=1 .2 (mg/dL) Final Calcium 06/09/2023 10:41:41 9.7 8.4-10.2 ( mg/dL) Final Protein 06/09/2023 10:41:41 7.5 6.0-8.3 (g /dL) Final ALT (Alanine aminotransferase) 06/09/2023 10:41:41 26 10-50 (U/L) Yomi gaxiola Performing Location [facility]ORATORY [facility] [place] - [facility] [address] [facility] [id number]
[2023-11-06 06:43] LABS: Hemoglobin 14.6 g/dl (14.0-18.0); Mean Corpuscular Hemoglobin 28.1 pg (25.0-34.0); Mean Corpuscular Hgb Conc 32.4 g/dL (32.0-36.0); Mean Corpuscular Volume 86.5 fL (80.0-100.0); Mean Platelet Volume 9.8 fL (9.4-12.4); Platelet Count 276 K/uL (130-400); RDW Standard Deviation 44.5 fL (36.4-46.3); White Blood Count 10.83 K/ul (4.8-10.8)
[2023-11-06 06:57] LABS: Albumin Globulin Ratio 1.1 (0.9-2); Albumin Level 3.6 gm/dl (3.4-5.0); BUN Creatinine Ratio 16.9 (10-20); Bilirubin,Total 0.7 mg/dl (0.2-1.0); Calcium 9.1 mg/dl (8.6-10.3); Est GFR (African American) 112.3 ml/min; Est GFR (Non-African American) 96.9 ml/min; Globulin 3.3 gm/dl (2.5-4.0); Potassium 4.3 mmol/L (3.5-5.1); Total Protein 6.9 gm/dl (6.0-8.3)
[2023-11-06 08:22] LABS: Estimated Average Glucose 154 mg/dl
[2023-11-06] MEDS ORDERED: ADALIMUMAB 40 MG/0.8 ML SYR SQ SCH (09:00)
--- NOTE | 2023-11-06 10:13 | Gastroenterology Progress Note ---
Date of Service November 06, 2023 Assessment & Plan (1) Ulcerative colitis: (2) C. difficile colitis: Plan - Vancomycin 500mg QID (no improvement on 125 Q6 hrs x 8 days). - IV fluids - Solumedrol 20mg QID - Humira At the time of my exam this morning, I (and his RN) witnessed the pt self inject Humira four of the 40mg SQ pens. This was brought from home by his family and relabled by the [facility] pharmacy. Pt performed self injections well. Next Humira injection in 2 weeks, 80mg at that time. After than 40mg every 2 wks. - CBC, CMP tomorrow. Will also check for Celiac (life long hx of loose stools). - Clear liquid diet. - Will continue to follow. Admission and Anticipated Discharge Date Admission Date: November 05, 2023 Supervising Physician Co-Signing Physician Notes I performed a history and physical examination of the patient today, including specifically on physical exam - soft abdomen. I have discussed the patient's management with the advanced practitioner. Please refer to the nurse practitioner's note for the documented findings and plan of care. UC with CDI. Currently on IV Steroids, started Humira and on PO Vancomycin. Still with severe diarrhea though labs are reassuring. Continue current therapy for one more day. Repeat CRP tomorrow. May consider Cholestyramine or Bentyl. Subjective 53 male admitted yesterday for failed OP UC flare and C-diff not responding to OP oral vancomycin. Tx w Vanco 500mg Q6hrs since yesterday (previously for 8 days 125mg). Solumedrol 20mg Q8hrs Overnight, continued w small liquid BMs w small amt of blood about every 1 1/2 hrs (no improvement since admission yesterday afternoon but no worsening). + LLQ tenderness, no distension, afebrile, hemodynamically stable. Review of Systems Review of Systems: ROS: Gen: + fatigues easily (no sleep for days due to diarrhea)Denies weakness, fevers, weight loss Eyes: No eye redness, or pain, no recent vision changes Resp: No SOB, no cough Cardio: No palpitations/irregular beats, no chest pain GI: + LLQ abdominal pain, + mid nausea; no vomiting : Denies pain on urination Skin: No jaundice, itching or new rashes Physical Exam Constitutional: WD/WN, vitals as above Eyes: PERRL, conjunctivae normal, anicteric sclerae ENMT: external ear and nose normal, oropharynx normal Neck: trachea midline, no thyromegaly Respiratory: normal respiratory effort, lungs clear to auscultation Cardiovascular: RRR, no murmur, no edema Gastrointestinal (Abdomen): soft, moderate LLQ tenderness, no distention, normal BS Skin: no rashes, warm and dry 2cm area of skin became sl raised and re d at one of the Humira injection sites a minute after the self injection of humira. Neurologic: PERRL, EOMI, accommodation nl, no face palsy, no dysarthria Psychiatric: A+Ox3, euthymic affect Lymphatic: no cervical or axillary lymphadenopathy Results & Data Vital Signs (Past 12 Hours) Vital Signs Temp Pulse Resp BP Pulse Ox O2 Del Method 11/06/23 08:18 36.6 C 77 18 119/70 97 Room Air Laboratory Results WBC 10.8, Hb 14.6, Hct 45, Plt 276, Na 133, K 4.3, CL 100, CO2 26, BUN 7, Cr 15, Glucose 141. Sed 97, CRP 6.59. Diagnostic Findings CTAP w IV 11/05/23: 1. There is evidence of a mild nonspecific pancolitis, likely on an infectious or inflammatory basis. Clinical correlation will be required. 2. No bowel obstruction is seen. 3. Bilateral nephrolithiasis. 4. Normal appendix. 5. Additional findings as above. (1) Ulcerative colitis Ulcerative colitis location: ulcerative pancolitis
[2023-11-06] MEDS: ADALIMUMAB 40 MG/0.8 ML SYR SQ SCH (10:27)
[2023-11-06 11:05] LABS: Immunoglobulin A 262.3 mg/dl (70-400)
--- NOTE | 2023-11-06 14:22 | Hospitalist Progress Note ---
Date of Service November 06, 2023 Assessment & Plan (1) Ulcerative colitis: (2) C. difficile colitis: Plan: This is a 53-year-old male with PMH of suspected davis ulcerative colitis on mesalamine since colonoscopy in July 2023 with recent increase in diarrhea frequency in the past few weeks, found to be c diff positive on Oct 23 stool culture. Increased diarrhea frequency over the past few nights, left sided abdominal cramping and poor PO intake Follows with Dr. Valero, completing steroid taper , on mesalamine Leukocytosis on admission present; downtrending CT abdomen and pelvis with oral and IV contrast on admission shows evidence of mild nonspecific pancolitis. GI on board; continue Vancomycin at increased dose of 500mg PO Q6H, IV 20mg solu-medrol Q8H, first dose of Humira was given on November 06, 2023 Continue IV fluids, clear liquid diet, pain control Isolation precautions Repeat CMP, CBC, CRP in AM UTI ruled out Abnormal UA Abnormal UA but no nitrates, urine bacteria negative Dysuria has resolved with hydration - will hold off on abx for now give c diff, monitor symptoms Urine culture negative DVT Ppx: SCDs Code status: FULL PCP: Stephen Dispo: Obs med/surg. Admitted for C. difficile colitis and UC flare; currently needing IV steroids. Close monitoring for progression of C. difficile colitis. Please note the above document was generated using voice recognition software. It may contain grammatical, syntax or spelling errors. Any formal questions or concerns about the content, text or information contained within the body of this dictation should be directly addressed to the provider for clarification Admission and Anticipated Discharge Date Admission Date: November 05, 2023 Subjective Patient seen and examined at bedside. He reports multiple loose bowel movements; Lower abdominal discomfort Review of Systems Review of Systems: All systems reviewed & are unremarkable except as noted in Subjective Physical Exam Physical Exam: Constitutional: Awake, alert oriented x 3; not in distress. Respiratory: normal respiratory effort, lungs clear to auscultation, no wheeze, rales, rhonchi. Normal insp/exp effort, no accessory muscle use Cardiovascular: RRR, no murmur, no edema Vessels: no JVD or carotid bruit Chest: normal inspection of chest Abdomen: Tenderness present in left lower quadrant Musculoskeletal: no cyanosis or clubbing, extremities motor strength 5/5 Skin: no rashes, warm and dry normal turgor Neurologic: PERRL, EOMI, accommodation nl, no face palsy, no dysarthria CN's II- XI intact bilaterally and moves all extremities Psychiatric: A+Ox3, euthymic affect Results & Data Results & Data Vital Signs (Past 12 Hours) Vital Signs Temp Pulse Resp BP Pulse Ox O2 Del Method 11/06/23 08:18 36.6 C 77 18 119/70 97 Room Air (1) Ulcerative colitis Ulcerative colitis location: ulcerative pancolitis
[2023-11-06] MEDS: MoRPHine SULFATE 4 MG/ML 1 ML CARP\\VIAL IV PRN (21:08)
[2023-11-07 07:43] LABS: Hematocrit (blood only) 40.6 % (42.0-52.0); Hemoglobin 13.6 g/dl (14.0-18.0); Mean Corpuscular Hemoglobin 28.6 pg (25.0-34.0); Mean Corpuscular Hgb Conc 33.5 g/dL (32.0-36.0); Mean Corpuscular Volume 85.3 fL (80.0-100.0); Mean Platelet Volume 10.8 fL (9.4-12.4); Platelet Count 166 K/uL (130-400); RDW Coefficient of Variation 13.6 % (11.5-14.5); RDW Standard Deviation 42.5 fL (36.4-46.3); Red Blood Count 4.76 M/uL (4.70-6.10); White Blood Count 9.45 K/ul (4.8-10.8)
[2023-11-07 07:57] LABS: Albumin Globulin Ratio 1.1 (0.9-2); Albumin Level 3.3 gm/dl (3.4-5.0); BUN Creatinine Ratio 21.5 (10-20); Bilirubin,Total 0.5 mg/dl (0.2-1.0); C Reactive Protein 0.67 mg/dl (0-0.5); Calcium 8.8 mg/dl (8.6-10.3); Creatinine Clr Calc Pharmacy 110.4 ml/min; Est GFR (Non-African American) 101.8 ml/min; Globulin 2.9 gm/dl (2.5-4.0); Potassium 4.3 mmol/L (3.5-5.1); Total Protein 6.2 gm/dl (6.0-8.3)
--- NOTE | 2023-11-07 16:54 | Hospitalist Progress Note ---
Date of Service November 07, 2023 Assessment & Plan (1) Ulcerative colitis: (2) C. difficile colitis: Plan: This is a 53-year-old male with PMH of suspected davis ulcerative colitis on mesalamine since colonoscopy in July 2023 with recent increase in diarrhea frequency in the past few weeks, found to be c diff positive on Oct 23 stool culture. Patient presents with abdominal pain, multiple episode of diarrhea and poor oral intake Follows with Dr. Valero, completing steroid taper , on mesalamine Leukocytosis on admission present; downtrending CT abdomen and pelvis with oral and IV contrast on admission shows evidence of mild nonspecific pancolitis. CRP down trended from 6 to 0.67 GI on board; continue Vancomycin at increased dose of 500mg PO Q6H, IV 20mg solu-medrol Q8H, first dose of Humira was given on November 06, 2023 Continue IV fluids, advance diet as tolerated Isolation precautions Type 2 diabetes mellitus HbA1c during the hospitalization was found to be 7% Patient has been on steroid for past few months Recommend diabetic diet and repeat HbA1c after patient is off steroid for 3 months. UTI ruled out Abnormal UA Abnormal UA but no nitrates, urine bacteria negative Dysuria has resolved with hydration - will hold off on abx for now give c diff, monitor symptoms Urine culture negative DVT Ppx: SCDs Code status: FULL PCP: Stephen Dispo: Obs med/surg. Admitted for C. difficile colitis and UC flare; currently needing IV steroids. Close monitoring for progression of C. difficile colitis. Please note the above document was generated using voice recognition software. It may contain grammatical, syntax or spelling errors. Any formal questions or concerns about the content, text or information contained within the body of this dictation should be directly addressed to the provider for clarification Admission and Anticipated Discharge Date Admission Date: November 05, 2023 Subjective Patient seen and examined at bedside. He continues to have multiple episode of loose bowel movement Reports abdominal pain; required IV morphine overnight. Review of Systems Review of Systems: All systems reviewed & are unremarkable except as noted in Subjective Physical Exam Physical Exam: Constitutional: Awake, alert oriented x 3; not in distress. Respiratory: normal respiratory effort, lungs clear to auscultation, no wheeze, rales, rhonchi. Normal insp/exp effort, no accessory muscle use Cardiovascular: RRR, no murmur, no edema Vessels: no JVD or carotid bruit Chest: normal inspection of chest Abdomen: Tenderness present in left lower quadrant Musculoskeletal: no cyanosis or clubbing, extremities motor strength 5/5 Skin: no rashes, warm and dry normal turgor Neurologic: PERRL, EOMI, accommodation nl, no face palsy, no dysarthria CN's II- XI intact bilaterally and moves all extremities Psychiatric: A+Ox3, euthymic affect Results & Data Results & Data Vital Signs (Past 12 Hours) Vital Signs Temp Pulse Resp BP Pulse Ox O2 Del Method 11/07/23 14:52 36.6 C 69 18 117/71 96 Room Air 11/07/23 09:01 36.5 C 76 16 125/74 97 Room Air (1) Ulcerative colitis Ulcerative colitis location: ulcerative pancolitis
[2023-11-07] MEDS: CHOLESTYRAMINE LIGHT 4 GM PKT PO ONE (17:28)
[2023-11-07] MEDS ORDERED: MENTHOL-ZINC OXIDE 360 APPLN/120 GM TUBE EXT PRN (17:45)
[2023-11-08 07:26] LABS: Basophils # (auto) 0.01 K/uL (0.00-0.20); Basophils % (auto) 0.1 %; Hematocrit (blood only) 41.6 % (42.0-52.0); Hemoglobin 13.5 g/dl (14.0-18.0); Immature Granulocytes # (auto) 0.05 K/uL (0.01-0.20); Immature Granulocytes % (auto) 0.6 %; Lymphocytes # (auto) 0.58 K/uL (1.20-3.40); Lymphocytes % (auto) 6.6 %; Mean Corpuscular Hemoglobin 28.2 pg (25.0-34.0); Mean Corpuscular Hgb Conc 32.5 g/dL (32.0-36.0); Mean Corpuscular Volume 86.8 fL (80.0-100.0); Mean Platelet Volume 9.6 fL (9.4-12.4); Monocytes # (auto) 0.42 K/uL (0.11-0.59); Monocytes % (auto) 4.8 %; Neutrophils # (auto) 7.73 K/uL (1.40-6.50); Neutrophils % (auto) 87.9 %; Platelet Count 229 K/uL (130-400); RDW Coefficient of Variation 13.7 % (11.5-14.5); RDW Standard Deviation 43.7 fL (36.4-46.3); Red Blood Count 4.79 M/uL (4.70-6.10); White Blood Count 8.79 K/ul (4.8-10.8)
[2023-11-08 07:36] LABS: Calcium 8.6 mg/dl (8.6-10.3); Creatinine Clr Calc Pharmacy 114.7 ml/min; Est GFR (African American) 119.9 ml/min; Est GFR (Non-African American) 103.4 ml/min; Potassium 4.2 mmol/L (3.5-5.1)
--- NOTE | 2023-11-08 15:31 | Hospitalist Progress Note ---
Date of Service November 08, 2023 Assessment & Plan (1) Ulcerative colitis: (2) C. difficile colitis: Plan: This is a 53-year-old male with PMH of suspected davis ulcerative colitis on mesalamine since colonoscopy in July 2023 with recent increase in diarrhea frequency in the past few weeks, found to be c diff positive on Oct 23 stool culture. Patient presents with abdominal pain, multiple episode of diarrhea and poor oral intake Follows with Dr. Valero, completing steroid taper , on mesalamine Leukocytosis on admission present; downtrending CT abdomen and pelvis with oral and IV contrast on admission shows evidence of mild nonspecific pancolitis. CRP down trended from 6 to 0.67 GI on board; continue Vancomycin at increased dose of 500mg PO Q6H, IV 20mg solu-medrol Q8H, first dose of Humira was given on November 06, 2023 Continue IV fluids, advance diet as tolerated Isolation precautions Type 2 diabetes mellitus HbA1c during the hospitalization was found to be 7% Patient has been on steroid for past few months Recommend diabetic diet and repeat HbA1c after patient is off steroid for 3 months. UTI ruled out Abnormal UA Abnormal UA but no nitrates, urine bacteria negative Dysuria has resolved with hydration - will hold off on abx for now give c diff, monitor symptoms Urine culture negative DVT Ppx: SCDs Code status: FULL PCP: Stephen Dispo: Obs med/surg. Admitted for C. difficile colitis and UC flare; currently needing IV steroids. Close monitoring for progression of C. difficile colitis. Please note the above document was generated using voice recognition software. It may contain grammatical, syntax or spelling errors. Any formal questions or concerns about the content, text or information contained within the body of this dictation should be directly addressed to the provider for clarification Admission and Anticipated Discharge Date Admission Date: November 07, 2023 Subjective Patient seen and examined at bedside. Slight improvement in numbers of diarrhea overnight. Reports that bowel movements are starting to form. Left lower quadrant abdominal discomfort present. Review of Systems Review of Systems: All systems reviewed & are unremarkable except as noted in Subjective Physical Exam Physical Exam: Constitutional: Awake, alert oriented x 3; not in distress. Respiratory: normal respiratory effort, lungs clear to auscultation, no wheeze, rales, rhonchi. Normal insp/exp effort, no accessory muscle use Cardiovascular: RRR, no murmur, no edema Vessels: no JVD or carotid bruit Chest: normal inspection of chest Abdomen: Tenderness present in left lower quadrant Musculoskeletal: no cyanosis or clubbing, extremities motor strength 5/5 Skin: no rashes, warm and dry normal turgor Neurologic: PERRL, EOMI, accommodation nl, no face palsy, no dysarthria CN's II- XI intact bilaterally and moves all extremities Psychiatric: A+Ox3, euthymic affect Results & Data Results & Data Vital Signs (Past 12 Hours) Vital Signs Temp Pulse Resp BP BP Pulse Ox O2 Del Method 11/08/23 15:07 36.7 C 74 16 118/70 96 Room Air 11/08/23 07:45 36.6 C 61 16 115/68 96 Room Air (1) Ulcerative colitis Ulcerative colitis location: ulcerative pancolitis
--- NOTE | 2023-11-08 17:24 | Gastroenterology Progress Note ---
Date of Service November 08, 2023 Assessment & Plan Admission and Anticipated Discharge Date Admission Date: November 07, 2023 Subjective Patient was seen and examined, feels much better today, BM is brown, less frequent, not formed yet, pain is controlled. CRP trended down. Recommend: Continue IV Steroids. Continue PO Vancomycin. Results & Data Vital Signs (Past 12 Hours) Vital Signs Temp Pulse Resp BP BP Pulse Ox O2 Del Method 11/08/23 15:07 36.7 C 74 16 118/70 96 Room Air 11/08/23 07:45 36.6 C 61 16 115/68 96 Room Air
[2023-11-09 08:13] LABS: Basophils # (auto) 0.01 K/uL (0.00-0.20); Basophils % (auto) 0.1 %; Hematocrit (blood only) 42.8 % (42.0-52.0); Hemoglobin 13.7 g/dl (14.0-18.0); Immature Granulocytes # (auto) 0.09 K/uL (0.01-0.20); Immature Granulocytes % (auto) 0.9 %; Lymphocytes # (auto) 0.77 K/uL (1.20-3.40); Lymphocytes % (auto) 7.8 %; Mean Corpuscular Hemoglobin 27.9 pg (25.0-34.0); Mean Corpuscular Volume 87.2 fL (80.0-100.0); Mean Platelet Volume 9.7 fL (9.4-12.4); Monocytes # (auto) 0.41 K/uL (0.11-0.59); Monocytes % (auto) 4.2 %; Neutrophils # (auto) 8.54 K/uL (1.40-6.50); Platelet Count 238 K/uL (130-400); RDW Coefficient of Variation 13.7 % (11.5-14.5); RDW Standard Deviation 43.5 fL (36.4-46.3); Red Blood Count 4.91 M/uL (4.70-6.10); White Blood Count 9.82 K/ul (4.8-10.8)
[2023-11-09 08:34] LABS: BUN Creatinine Ratio 19.5 (10-20); Calcium 8.7 mg/dl (8.6-10.3); Creatinine Clr Calc Pharmacy 100.2 ml/min; Est GFR (African American) 113.4 ml/min; Est GFR (Non-African American) 97.8 ml/min; Potassium 4.7 mmol/L (3.5-5.1)
--- NOTE | 2023-11-09 09:27 | Gastroenterology Progress Note ---
Date of Service November 09, 2023 Assessment & Plan (1) Ulcerative colitis: Plan: 53 year old male with UC (started Humira 11/06/23) admitted with c.diff colitis and UC flare presently on Vancomycin 500 mg QID (day 11) and IV methylprednisolone 20 mg q8h who notes resolution of blood stools, resolution of abd pain but persistent diarrhea. - Continue 14 day course of QID Vancomycin - Continue IV methylpred 20mg QID - Pending response, consider transition to oral prednisone in 24/48 hours - Continue Humira - Low fat, low residue diet as tolerated - Consider Bentyl 10 mg TID - Scheduled Questran once daily Thank you for allowing us to participate in the care of this patient. Please call with any acute changes, questions or concerns. Please see addendum below with additional recommendation from my supervising physician. (2) C. difficile colitis: Admission and Anticipated Discharge Date Admission Date: November 07, 2023 Supervising Physician Co-Signing Physician Notes I performed a history and physical examination of the patient today, including specifically on physical exam - soft abdomen with some tenderness to deep palpation in LLQ. I have discussed the patient's management with the advanced practitioner. Please refer to the nurse practitioner's note for the documented findings and plan of care. Patient reports he actually feels well today. No abdominal pain, no blood in stool but did have 20 bowel movements yesterday with little form to them. Tolerating meals with no issue. UC with CDI. Currently on IV Steroids (day 5), started Humira and on PO Vancomycin. Still with severe diarrhea reporting 20 bowel movements yesterday though labs are reassuring. Continue IV steroids again today with plan to switch to PO tomorrow. He is going to keep chart of all bowel movements moving forward. Can not discharge home with 20 bowel movements. If not improving in 1-2 days may need to perform flex sig to assess and would need surgical consult as well. Will obtain KUB today given severity of ongoing diarrhea despite treatment with steroids, Humira, and Vancomycin. Check CRP today Ariadna Escalante, DO Gastroenterology and Hepatology Subjective Starting to feel better. No abd pain. Rectal bleeding resolved. Persistent diarrhea however. Suggests yesterday maybe 20+ stools. Did take a dose of Questran. Not sure if this helped. WBC 9 HGB 13.7 CRP 7 --> 0.67 Started Humira starter kit Is on IV steroids Is on PO Vancomycin CTAP 2023: There is evidence of a mild nonspecific pancolitis, likely on an infectious or inflammatory basis. Clinical correlation will be required. No bowel obstruction is seen. Bilateral nephrolithiasis. Normal appendix.. Additional findings as above. Colonoscopy 08/13 The perianal and digital rectal examinations were normal. Pertinent negatives include normal sphincter tone and no palpable rectal lesions. The terminal ileum appeared normal. A diffuse area of severely congested, erythematous, friable (with contact bleeding) and inflamed mucosa was found in the entire colon. Biopsies were taken with a cold forceps for histology. Verification of patient identification for the specimen was done by the physician and nurse using the patient's name and date. Estimated blood loss was minimal. An area of moderately mucosa was found in the rectum. A. Colon, random, biopsy: Active chronic colitis with crypt abscess No granuloma or dysplasia identified Review of Systems Review of Systems: All systems reviewed & are unremarkable except as noted in HPI & below Physical Exam Constitutional: WD/WN, vitals as above Respiratory: normal respiratory effort, lungs clear to auscultation Cardiovascular: Rate/Rhythm: regular rate and regular rhythm Gastrointestinal (Abdomen): normal bowel sounds, soft, nontender, no hepatosplenomegaly Skin: no rashes, warm and dry Results & Data Vital Signs (Past 12 Hours) Vital Signs Temp Pulse Resp BP Pulse Ox O2 Del Method 11/09/23 08:30 36.5 C 67 18 119/70 97 Room Air Laboratory Results 11/09/23 Range/Units 07:51 WBC 9.82 (4.8-10.8) K/ul RBC 4.91 (4.70-6.10) M/uL Hgb 13.7 L (14.0-18.0) g/dl Hct 42.8 (42.0-52.0) % MCV 87.2 (80.0-100.0) fL MCH 27.9 (25.0-34.0) pg MCHC 32.0 (32.0-36.0) g/dL RDW Std Deviation 43.5 (36.4-46.3) fL RDW Coeff of Luan 13.7 (11.5-14.5) % Plt Count 238 (130-400) K/uL MPV 9.7 (9.4-12.4) fL Immature Gran % (Auto) 0.9 % Neut % (Auto) 87.0 % Lymph % (Auto) 7.8 % Thomas % (Auto) 4.2 % Eos % (Auto) 0.0 % Baso % (Auto) 0.1 % Neut # (Auto) 8.54 H (1.40-6.50) K/uL Lymph # (Auto) 0.77 L (1.20-3.40) K/uL Thomas # (Auto) 0.41 (0.11-0.59) K/uL Eos # (Auto) 0.00 (0.00-0.50) K/uL Baso # (Auto) 0.01 (0.00-0.20) K/uL Immature Gran # (Auto) 0.09 (0.01-0.20) K/uL Sodium 137 (136-145) mmol/L Potassium 4.7 (3.5-5.1) mmol/L Chloride 105 (98-107) mmol/L Carbon Dioxide 28 (21-32) mmol/L Anion Gap 4 (3-11) BUN 17 (6-23) mg/dl Creatinine 0.87 (0.6-1.4) mg/dl Est Cr Clr Drug Dosing 100.2 ml/min Est GFR ( Amer) 113.4 ml/min Est GFR (Non-Af Amer) 97.8 ml/min BUN/Creatinine Ratio 19.5 (10-20) Glucose 143 H (70-99(Fasting)) mg/dl Calcium 8.7 (8.6-10.3) mg/dl (1) Ulcerative colitis Ulcerative colitis location: ulcerative pancolitis
--- NOTE | 2023-11-09 11:08 | XRay Report ---
XR KUB/Abdomen 1 view CLINICAL HISTORY: c diff, uc, r/o megacolon TECHNIQUE: 1 view of the abdomen was obtained. Comparison: Comparison is made to abdomen radiograph 11/05/2023 FINDINGS: Lung bases are unremarkable. The osseous structures are grossly unremarkable. The bowel gas pattern i s nonobstructive. A moderate amount of stool is noted within the large bowel. IMPRESSION: No gaseous dilation of the colon is seen to suggest toxic megacolon. ACT 112: Negative or not required by law. Electronically signed by: Juancho Guerrero M.D. 11/09/2023 11:06 AM
--- NOTE | 2023-11-09 13:33 | Hospitalist Progress Note ---
Date of Service November 09, 2023 Assessment & Plan (1) Ulcerative colitis: (2) C. difficile colitis: Plan: This is a 53-year-old male with PMH of suspected davis ulcerative colitis on mesalamine since colonoscopy in July 2023 with recent increase in diarrhea frequency in the past few weeks, found to be c diff positive on Oct 23 stool culture. Patient presents with abdominal pain, multiple episode of diarrhea and poor oral intake Follows with Dr. Valero, completing steroid taper , on mesalamine Leukocytosis on admission present; downtrending CT abdomen and pelvis with oral and IV contrast on admission shows evidence of mild nonspecific pancolitis. CRP down trended from 6 to 0.67 GI on board; continue Vancomycin at increased dose of 500mg PO Q6H, IV 20mg solu-medrol Q8H, first dose of Humira was given on November 06, 2023 Continue IV fluids, advance diet as tolerated Isolation precautions KUB from today reviewed; no acute finding. CRP ordered for tomorrow a.m. Type 2 diabetes mellitus HbA1c during the hospitalization was found to be 7% Patient has been on steroid for past few months Recommend diabetic diet and repeat HbA1c after patient is off steroid for 3 months. UTI ruled out Abnormal UA Abnormal UA but no nitrates, urine bacteria negative Dysuria has resolved with hydration - will hold off on abx for now give c diff, monitor symptoms Urine culture negative DVT Ppx: SCDs Code status: FULL PCP: Stephen Dispo: med/surg. Admitted for C. difficile colitis and UC flare; currently needing IV steroids. Possible DC in next 1 to 2 days Please note the above document was generated using voice recognition software. It may contain grammatical, syntax or spelling errors. Any formal questions or concerns about the content, text or information contained within the body of this dictation should be directly addressed to the provider for clarification Admission and Anticipated Discharge Date Admission Date: November 07, 2023 Subjective Patient seen and examined at bedside. He continues to have multiple episode of diarrhea; reports that the stools are starting to form Abdominal pain has improved significantly Vital stable; saturating well on room air Review of Systems Review of Systems: All systems reviewed & are unremarkable except as noted in Subjective Physical Exam Physical Exam: Constitutional: Awake, alert oriented x 3; not in distress. Respiratory: normal respiratory effort, lungs clear to auscultation, no wheeze, rales, rhonchi. Normal insp/exp effort, no accessory muscle use Cardiovascular: RRR, no murmur, no edema Vessels: no JVD or carotid bruit Chest: normal inspection of chest Abdomen: Soft, nontender Musculoskeletal: no cyanosis or clubbing, extremities motor strength 5/5 Skin: no rashes, warm and dry normal turgor Neurologic: PERRL, EOMI, accommodation nl, no face palsy, no dysarthria CN's II- XI intact bilaterally and moves all extremities Psychiatric: A+Ox3, euthymic affect Results & Data Results & Data Vital Signs (Past 12 Hours) Vital Signs Temp Pulse Resp BP Pulse Ox O2 Del Method 11/09/23 08:30 36.5 C 67 18 119/70 97 Room Air (1) Ulcerative colitis Ulcerative colitis location: ulcerative pancolitis
[2023-11-10 07:19] LABS: Basophils # (auto) 0.02 K/uL (0.00-0.20); Basophils % (auto) 0.2 %; Hematocrit (blood only) 41.1 % (42.0-52.0); Hemoglobin 13.1 g/dl (14.0-18.0); Immature Granulocytes # (auto) 0.12 K/uL (0.01-0.20); Immature Granulocytes % (auto) 1.2 %; Lymphocytes # (auto) 0.68 K/uL (1.20-3.40); Lymphocytes % (auto) 6.6 %; Mean Corpuscular Hemoglobin 27.9 pg (25.0-34.0); Mean Corpuscular Hgb Conc 31.9 g/dL (32.0-36.0); Mean Corpuscular Volume 87.6 fL (80.0-100.0); Monocytes # (auto) 0.49 K/uL (0.11-0.59); Monocytes % (auto) 4.8 %; Neutrophils # (auto) 8.92 K/uL (1.40-6.50); Neutrophils % (auto) 87.2 %; Platelet Count 231 K/uL (130-400); RDW Standard Deviation 43.9 fL (36.4-46.3); Red Blood Count 4.69 M/uL (4.70-6.10); White Blood Count 10.23 K/ul (4.8-10.8)
[2023-11-10 07:21] LABS: Anion Gap 3 (3-11); BUN Creatinine Ratio 22.3 (10-20); Blood Urea Nitrogen 21 mg/dl (6-23); C Reactive Protein < 0.50 mg/dl (0-0.5); Calcium 8.8 mg/dl (8.6-10.3); Carbon Dioxide 29 mmol/L (21-32); Chloride 106 mmol/L (98-107); Creatinine Clr Calc Pharmacy 92.8 ml/min; Est GFR (African American) 106.1 ml/min; Est GFR (Non-African American) 91.6 ml/min; Glucose 145 mg/dl (70-99(Fasting)); Sodium 138 mmol/L (136-145)
[2023-11-10] MEDS: CHOLESTYRAMINE LIGHT 4 GM PKT PO SCH (09:15)
--- NOTE | 2023-11-10 09:40 | Gastroenterology Progress Note ---
Date of Service November 10, 2023 Assessment & Plan (1) Ulcerative colitis: Plan: 53 year old male with UC (started Humira 11/06/23) admitted with c.diff colitis and UC flare presently on Vancomycin 500 mg QID (day 11) and IV methylprednisolone 20 mg q8h who notes resolution of blood stools, resolution of abd pain but persistent diarrhea. - Continue 14 day course of QID Vancomycin - Continue IV methylpred 20mg QID - Pending response, consider transition to oral prednisone in 24/48 hours - Continue Humira - Low fat, low residue diet as tolerated - Consider Bentyl 10 mg TID - Scheduled Questran once daily - Pending improvement, may need Flex Sig Thank you for allowing us to participate in the care of this patient. Please call with any acute changes, questions or concerns. Please see addendum below with additional recommendation from my supervising physician. (2) C. difficile colitis: Admission and Anticipated Discharge Date Admission Date: November 07, 2023 Supervising Physician Co-Signing Physician Notes I saw and evaluated the patient. He is known to our service as an outpatient for ulcerative colitis. Over the past few weeks the patient has noted worsening symptoms and was on a recent course of prednisone as an outpatient. As he was not improving the patient was then started on Humira which he received a loading dose last week. Unfortunately the patient persists with having problems of up to 20 loose to liquid bowel movements per day associated with urgency and tenesmus. Plan Continue with IV hydration Repeat stool C. difficile Repeat stool culture Serologies for CMV Colonoscopy scheduled for tomorrow Continue with intravenous steroids. Subjective Persistent, unchanged BM. 23, loose, watery stools. No black/bloody stools. A lot of urgency. Had some pain/cramping last evening, resolved with analgesia. KUB unremarkable Review of Systems Review of Systems: All systems reviewed & are unremarkable except as noted in HPI & below Physical Exam Constitutional: WD/WN, vitals as above Sitting out of bed in chair on computer Respiratory: normal respiratory effort Cardiovascular: Rate/Rhythm: regular rate Gastrointestinal (Abdomen): Percussion/Palpation: abdomen soft; abdomen nontender, no guarding and abdomen not rigid Skin: no rashes, warm and dry Results & Data Vital Signs (Past 12 Hours) Vital Signs Temp Pulse Resp BP Pulse Ox O2 Del Method 11/10/23 07:41 36.6 C 62 16 122/76 98 Room Air Laboratory Results 11/10/23 11/07/23 Range/Units 06:34 07:21 WBC 10.23 (4.8-10.8) K/ul RBC 4.69 L (4.70-6.10) M/uL Hgb 13.1 L (14.0-18.0) g/dl Hct 41.1 L (42.0-52.0) % MCV 87.6 (80.0-100.0) fL MCH 27.9 (25.0-34.0) pg MCHC 31.9 L (32.0-36.0) g/dL RDW Std Deviation 43.9 (36.4-46.3) fL RDW Coeff of Luan 14.0 (11.5-14.5) % Plt Count 231 (130-400) K/uL MPV 10.0 (9.4-12.4) fL Immature Gran % (Auto) 1.2 % Neut % (Auto) 87.2 % Lymph % (Auto) 6.6 % Moore % (Auto) 4.8 % Eos % (Auto) 0.0 % Baso % (Auto) 0.2 % Neut # (Auto) 8.92 H (1.40-6.50) K/uL Lymph # (Auto) 0.68 L (1.20-3.40) K/uL Moore # (Auto) 0.49 (0.11-0.59) K/uL Eos # (Auto) 0.00 (0.00-0.50) K/uL Baso # (Auto) 0.02 (0.00-0.20) K/uL Immature Gran # (Auto) 0.12 (0.01-0.20) K/uL Sodium 138 (136-145) mmol/L Potassium 5.0 (3.5-5.1) mmol/L Chloride 106 (98-107) mmol/L Carbon Dioxide 29 (21-32) mmol/L Anion Gap 3 (3-11) BUN 21 (6-23) mg/dl Creatinine 0.94 (0.6-1.4) mg/dl Est Cr Clr Drug Dosing 92.8 ml/min Est GFR ( Amer) 106.1 ml/min Est GFR (Non-Af Amer) 91.6 ml/min BUN/Creatinine Ratio 22.3 H (10-20) Glucose 145 H (70-99(Fasting)) mg/dl Calcium 8.8 (8.6-10.3) mg/dl C-Reactive Protein < 0.50 (0-0.5) mg/dl Tiss Transglutamin IgA <1.0 U/mL (1) Ulcerative colitis Ulcerative colitis location: ulcerative pancolitis
--- NOTE | 2023-11-10 15:29 | Hospitalist Progress Note ---
Date of Service November 10, 2023 Assessment & Plan (1) Ulcerative colitis: (2) C. difficile colitis: Plan: This is a 53-year-old male with PMH of suspected davis ulcerative colitis on mesalamine since colonoscopy in July 2023 with recent increase in diarrhea frequency in the past few weeks, found to be c diff positive on Oct 23 stool culture. Patient presents with abdominal pain, multiple episode of diarrhea and poor oral intake Follows with Dr. Valero, completing steroid taper , on mesalamine Leukocytosis on admission present; downtrending CT abdomen and pelvis with oral and IV contrast on admission shows evidence of mild nonspecific pancolitis. CRP down trended from 6 to less than 0.5 GI on board; continue Vancomycin at increased dose of 500mg PO Q6H, IV 20mg solu-medrol Q8H, first dose of Humira was given on November 06, 2023 GI recommends to repeat stool culture, C. difficile, CMV Continue IV fluids, advance diet as tolerated Plan for colonoscopy tomorrow a.m. n.p.o. from midnight Type 2 diabetes mellitus HbA1c during the hospitalization was found to be 7% Patient has been on steroid for past few months Recommend diabetic diet and repeat HbA1c after patient is off steroid for 3 months. UTI ruled out Abnormal UA Abnormal UA but no nitrates, urine bacteria negative Dysuria has resolved with hydration - will hold off on abx for now give c diff, monitor symptoms Urine culture negative DVT Ppx: SCDs Code status: FULL PCP: Stephen Dispo: med/surg. Admitted for C. difficile colitis and UC flare; currently needing IV steroids. Plan for colonoscopy tomorrow. Please note the above document was generated using voice recognition software. It may contain grammatical, syntax or spelling errors. Any formal questions or concerns about the content, text or information contained within the body of this dictation should be directly addressed to the provider for clarification Admission and Anticipated Discharge Date Admission Date: November 07, 2023 Subjective Patient seen and examined at bedside. He continues to have multiple episode of diarrhea; had 25 episodes in the last 24 hours. Review of Systems Review of Systems: All systems reviewed & are unremarkable except as noted in Subjective Physical Exam Physical Exam: Constitutional: Awake, alert oriented x 3; not in distress. Respiratory: normal respiratory effort, lungs clear to auscultation, no wheeze, rales, rhonchi. Normal insp/exp effort, no accessory muscle use Cardiovascular: RRR, no murmur, no edema Vessels: no JVD or carotid bruit Chest: normal inspection of chest Abdomen: Soft, nontender Musculoskeletal: no cyanosis or clubbing, extremities motor strength 5/5 Skin: no rashes, warm and dry normal turgor Neurologic: PERRL, EOMI, accommodation nl, no face palsy, no dysarthria CN's II- XI intact bilaterally and moves all extremities Psychiatric: A+Ox3, euthymic affect Results & Data Results & Data Vital Signs (Past 12 Hours) Vital Signs Temp Pulse Resp BP Pulse Ox O2 Del Method 11/10/23 07:41 36.6 C 62 16 122/76 98 Room Air (1) Ulcerative colitis Ulcerative colitis location: ulcerative pancolitis
[2023-11-10] MEDS: LAVAGE SOLUTION 4000ML PO SCH (17:07)
[2023-11-10 17:23] LABS: Adenovirus F 40/41 PCR Not Detected (NotDetected); Astrovirus PCR Not Detected (NotDetected); Campylobacter PCR Not Detected (NotDetected); Cryptosporidium PCR Not Detected (NotDetected); Cyclospora cayetanensis PCR Not Detected (NotDetected); Entamoeba histolytica PCR Not Detected (NotDetected); Enteroaggregative E.coli(EAEC) Not Detected (NotDetected); Enteropathogenic E.coli (EPEC) Not Detected (NotDetected); Enterotoxigenic E.coli (ETEC) Not Detected (NotDetected); Giardia lamblia PCR Not Detected (NotDetected); Norovirus GI/GII PCR Not Detected (NotDetected); Plesiomonas shigelloides PCR Not Detected (NotDetected); Rotavirus A PCR Not Detected (NotDetected); Salmonella PCR Not Detected (NotDetected); Sapovirus PCR Not Detected (NotDetected); Shiga-like Toxin E.coli (STEC) Not Detected (NotDetected); Shigella/Enteroinvasive E.coli Not Detected (NotDetected); Vibrio cholerae PCR Not Detected (NotDetected); Vibrio species PCR Not Detected (NotDetected); Yersinia enterocolitica PCR Not Detected (NotDetected)
[2023-11-11 08:05] LABS: Basophils # (auto) 0.03 K/uL (0.00-0.20); Basophils % (auto) 0.3 %; Hematocrit (blood only) 42.1 % (42.0-52.0); Hemoglobin 14.3 g/dl (14.0-18.0); Immature Granulocytes # (auto) 0.11 K/uL (0.01-0.20); Immature Granulocytes % (auto) 1.1 %; Lymphocytes # (auto) 0.87 K/uL (1.20-3.40); Lymphocytes % (auto) 8.5 %; Mean Corpuscular Hemoglobin 29.1 pg (25.0-34.0); Mean Corpuscular Volume 85.6 fL (80.0-100.0); Monocytes # (auto) 0.52 K/uL (0.11-0.59); Monocytes % (auto) 5.1 %; Platelet Count 243 K/uL (130-400); RDW Standard Deviation 43.4 fL (36.4-46.3); Red Blood Count 4.92 M/uL (4.70-6.10); White Blood Count 10.23 K/ul (4.8-10.8)
[2023-11-11 08:22] LABS: Calcium 8.9 mg/dl (8.6-10.3); Creatinine Clr Calc Pharmacy 126.4 ml/min; Est GFR (African American) 124.7 ml/min; Est GFR (Non-African American) 107.6 ml/min; Potassium 4.1 mmol/L (3.5-5.1)
--- NOTE | 2023-11-11 09:18 | Gastroenterology Progress Note ---
Date of Service November 11, 2023 Assessment & Plan (1) Ulcerative colitis: Plan: 53 year old male with UC (started Humira 11/06/23) admitted with c.diff colitis and UC flare presently on Vancomycin 500 mg QID (day 11) and IV methylprednisolone 20 mg q8h who notes resolution of blood stools, resolution of abd pain but persistent diarrhea. - NPO for Colonoscopy - Complete full 14 day course of QID Vancomycin - Continue IV methylpred 20mg QID - Pending response, consider transition to oral prednisone in 24/48 hours - Continue Humira - Consider Bentyl 10 mg TID - Scheduled Questran once daily Thank you for allowing us to participate in the care of this patient. Please call with any acute changes, questions or concerns. Please see addendum below with additional recommendation from my supervising physician. (2) C. difficile colitis: Admission and Anticipated Discharge Date Admission Date: November 07, 2023 Supervising Physician Co-Signing Physician Notes I personally saw and evaluated the patient on 11/11/2023 with PIPER Singh and agree with her findings and plan of care. Abdomen soft and non-tender. Colonoscopy completed today with moderate Gordon 2 UC. Biopsies obtained throughout the colon for CMV so will await path results., He does state he had 26 bowel movements yesterday. C. diff from this AM is negative. Convert IV steroids to Prednisone PO 60 mg daily. Increase questran to BID. Can use Imodium if ongoing diarrhea as C. diff is now negative. Continue induction dosing of Humira. Continue 14 day course of C. diff treatment. Hopeful that he will continue to improve once the Humira begins to work but if he continues to have severe diarrhea despite above measures would need to discuss surgical consult at that time but it is still early as Humira still needs more time to work. Ariadna Escalante, DO Gastroenterology and Hepatology Subjective Pt was seen and evaluated, chart reviewed. Tolerated bowel prep Stools are mostly clear, brown/yellow specks of stool No black or bloody BM. Occasional LLQ discomfort. Repeat C.diff negative Stool culture negative Giardia negative Yersinia pending Review of Systems Review of Systems: All systems reviewed & are unremarkable except as noted in HPI & below Physical Exam Constitutional: WD/WN, vitals as above Respiratory: normal respiratory effort, lungs clear to auscultation Cardiovascular: RRR, no murmur, no edema Gastrointestinal (Abdomen): normal bowel sounds, soft, nontender, no hepatosplenomegaly Skin: no rashes, warm and dry Results & Data Vital Signs (Past 12 Hours) Vital Signs Temp Pulse Resp BP Pulse Ox O2 Del Method 11/11/23 07:29 36.6 C 62 16 120/73 98 Room Air 11/10/23 22:15 Room Air Laboratory Results 11/11/23 11/10/23 Range/Units 07:22 15:49 WBC 10.23 (4.8-10.8) K/ul RBC 4.92 (4.70-6.10) M/uL Hgb 14.3 (14.0-18.0) g/dl Hct 42.1 (42.0-52.0) % MCV 85.6 (80.0-100.0) fL MCH 29.1 (25.0-34.0) pg MCHC 34.0 (32.0-36.0) g/dL RDW Std Deviation 43.4 (36.4-46.3) fL RDW Coeff of Luan 14.0 (11.5-14.5) % Plt Count 243 (130-400) K/uL MPV 10.0 (9.4-12.4) fL Immature Gran % (Auto) 1.1 % Neut % (Auto) 85.0 % Lymph % (Auto) 8.5 % Concord[place] % (Auto) 5.1 % Eos % (Auto) 0.0 % Baso % (Auto) 0.3 % Neut # (Auto) 8.70 H (1.40-6.50) K/uL Lymph # (Auto) 0.87 L (1.20-3.40) K/uL Concordia # (Auto) 0.52 (0.11-0.59) K/uL Eos # (Auto) 0.00 (0.00-0.50) K/uL Baso # (Auto) 0.03 (0.00-0.20) K/uL Immature Gran # (Auto) 0.11 (0.01-0.20) K/uL Sodium 138 (136-145) mmol/L Potassium 4.1 (3.5-5.1) mmol/L Chloride 106 (98-107) mmol/L Carbon Dioxide 27 (21-32) mmol/L Anion Gap 5 (3-11) BUN 20 (6-23) mg/dl Creatinine 0.69 (0.6-1.4) mg/dl Est Cr Clr Drug Dosing 126.4 ml/min Est GFR ( Amer) 124.7 ml/min Est GFR (Non-Af Amer) 107.6 ml/min BUN/Creatinine Ratio 29.0 H (10-20) Glucose 128 H (70-99(Fasting)) mg/dl Calcium 8.9 (8.6-10.3) mg/dl Stl C. cayetanensis PCR Not Detected (NotDetected) Stool Rotavirus A PCR Not Detected (NotDetected) Stl Adenov F 40/41 PCR Not Detected (NotDetected) Stool Astrovirus (PCR) Not Detected (NotDetected) Stool Campylobacter PCR Not Detected (NotDetected) Stl C. diff Tox B Gene Negative Cdiff Gene (Neg) Stool Cryptosporidium PCR Not Detected (NotDetected) Stl E.coli Shiga Tox PCR Not Detected (NotDetected) Stl Enterotoxigenic E PCR Not Detected (NotDetected) Stool EPEC (PCR) Not Detected (NotDetected) Stool EAEC (PCR) Not Detected (NotDetected) Stl E. histolytica PCR Not Detected (NotDetected) Stool Giardia Lamblia PCR Not Detected (NotDetected) Stool Salmonella PCR Not Detected (NotDetected) Stool Sapovirus (PCR) Not Detected (NotDetected) Stl P. shigelloides PCR Not Detected (NotDetected) Stl Shigella/EIEC PCR Not Detected (NotDetected) Stl Yersinia Cult Final Pending St Y.enterocolitica PCR Not Detected (NotDetected) Stool Vibrio (PCR) Not Detected (NotDetected) Stl Vibrio cholerae PCR Not Detected (NotDetected) Stl Norovirus GI/GII PCR Not Detected (NotDetected) CMV IgM Ab Pending CMV IgG Ab/TORCH Pending Giardia Antigen Pending (1) Ulcerative colitis Ulcerative colitis location: ulcerative pancolitis
--- NOTE | 2023-11-11 12:04 | Hospitalist Progress Note ---
Date of Service November 11, 2023 Assessment & Plan (1) Ulcerative colitis: (2) C. difficile colitis: Plan: This is a 53-year-old male with PMH of suspected davis ulcerative colitis on mesalamine since colonoscopy in July 2023 with recent increase in diarrhea frequency in the past few weeks, found to be c diff positive on Oct 23 stool culture. Patient presents with abdominal pain, multiple episode of diarrhea and poor oral intake Follows with Dr. Valero, completing steroid taper , on mesalamine Leukocytosis on admission present; downtrending CT abdomen and pelvis with oral and IV contrast on admission shows evidence of mild nonspecific pancolitis. CRP down trended from 6 to less than 0.5 Stool PCR negative C. difficile from 11/10 negative GI on board; continue Vancomycin at increased dose of 500mg PO Q6H, IV 20mg solu-medrol Q8H, first dose of Humira was given on November 06, 2023 Plan for colonoscopy today Continue IV fluids, advance diet as tolerated Type 2 diabetes mellitus HbA1c during the hospitalization was found to be 7% Patient has been on steroid for past few months Recommend diabetic diet and repeat HbA1c after patient is off steroid for 3 months. UTI ruled out Abnormal UA Abnormal UA but no nitrates, urine bacteria negative Dysuria has resolved with hydration - will hold off on abx for now give c diff, monitor symptoms Urine culture negative DVT Ppx: SCDs Code status: FULL PCP: Stephen Dispo: med/surg. Admitted for C. difficile colitis and UC flare; currently needing IV steroids. Plan for colonoscopy today Please note the above document was generated using voice recognition software. It may contain grammatical, syntax or spelling errors. Any formal questions or concerns about the content, text or information contained within the body of this dictation should be directly addressed to the provider for clarification Admission and Anticipated Discharge Date Admission Date: November 07, 2023 Subjective Patient seen and examined at bedside. He continues to have 16-17 bowel movements each day. Reports no abdominal pain. Review of Systems Review of Systems: All systems reviewed & are unremarkable except as noted in Subjective Physical Exam Physical Exam: Constitutional: Awake, alert oriented x 3; not in distress. Respiratory: normal respiratory effort, lungs clear to auscultation, no wheeze, rales, rhonchi. Normal insp/exp effort, no accessory muscle use Cardiovascular: RRR, no murmur, no edema Vessels: no JVD or carotid bruit Chest: normal inspection of chest Abdomen: Soft, nontender Musculoskeletal: no cyanosis or clubbing, extremities motor strength 5/5 Skin: no rashes, warm and dry normal turgor Neurologic: PERRL, EOMI, accommodation nl, no face palsy, no dysarthria CN's II- XI intact bilaterally and moves all extremities Psychiatric: A+Ox3, euthymic affect Results & Data Results & Data Vital Signs (Past 12 Hours) Vital Signs Temp Pulse Resp BP Pulse Ox O2 Del Method 11/11/23 07:45 Room Air 11/11/23 07:29 36.6 C 62 16 120/73 98 Room Air (1) Ulcerative colitis Ulcerative colitis location: ulcerative pancolitis
--- NOTE | 2023-11-11 13:33 | History & Physical Report ---
Date of Service November 11, 2023 Assessment & Plan (1) Ulcerative colitis: Plan: Proceed with planned colonoscopy. (2) C. difficile colitis: Admission and Anticipated Discharge Date Admission Date: November 07, 2023 History of Present Illness Chief Complaint: here for colonoscopy. Primary Care Provider: Dayron Mitchell MD 53 y/o M presenting for inpatient colonoscopy. Allergies Allergy/AdvReac Type Severity Reaction Status Date / Time No Known Allergies Allergy Mild OTHER Unverified 05/08/09 14:39 Home Medications Medication Instructions Recorded Confirmed Type Lactobacillus rhamnosus GG 10 1 cap PO DAILY 11/05/23 11/05/23 History billion cell capsule (Culturelle) mesalamine 1.2 gram tablet,delayed 1.2 g PO 11/05/23 History release prednisone 5 mg tablet 10 mg PO DAILY 11/05/23 11/05/23 History Past Med/Surg History Medical History Ulcerative colitis Surgical History H/O arthroscopy of shoulder Family History Other Diabetes Heart disease Hypertension Social History Smoking Status: Never smoker Hx Alcohol Use: No Hx Substance Use: No Preferred Language: [place] Communication Ability: Effective Customer Service Technician Required: No Beliefs That Will Affect Care: None Current Living Situation: Spouse Other Information That Helps Us Care for You: No Feels Safe at Home: Yes Safety Concerns: Feels Safe At This Time Assistive Devices: None Review of Systems All systems reviewed & are unremarkable except as noted in HPI & below Physical Exam Constitutional: WD/WN, vitals as above Respiratory: normal respiratory effort, lungs clear to auscultation Cardiovascular: RRR, no murmur, no edema Gastrointestinal (Abdomen): normal bowel sounds, soft, nontender, no hepatosplenomegaly Psychiatric: A+Ox3, euthymic affect Results & Data Vital Signs (Past 12 Hours) Vital Signs Temp Pulse Resp BP Pulse Ox O2 Del Method 11/11/23 07:45 Room Air 11/11/23 07:29 36.6 C 62 16 120/73 98 Room Air Code Status & VTE Plan VTE Prophylaxis Plan VTE Prophylaxis will be ordered: Yes (1) Ulcerative colitis Ulcerative colitis location: ulcerative pancolitis
--- NOTE | 2023-11-11 13:34 | Anesthesiology Consultation ---
Date of Service November 11, 2023 Assessment & Plan Chart Review Chart Review: Acceptable Risk for Surgery Consults Requested none ASA ASA2 Proposed Anesthesia Anesthesia Type: General and MAC Risk / Benefits Reviewed With: PT / POA / Parent / Guardian, Accepts Plan and Informed Consent Obtained History Surgery Operation Date: 11/11/23 16:30 Proposed Procedures p Colonoscopy Ava Escalante, Height/Weight Height: 5 ft 10 in Weight: 87 kg Allergies Allergy/AdvReac Type Severity Reaction Status Date / Time No Known Allergies Allergy Mild OTHER Unverified 05/08/09 14:39 Medications Home Medications Medication Instructions Recorded Confirmed Last Taken Lactobacillus rhamnosus GG 10 1 cap PO DAILY 11/05/23 11/05/23 Unknown billion cell capsule (Culturelle) mesalamine 1.2 gram tablet,delayed 1.2 g PO 11/05/23 Unknown release prednisone 5 mg tablet 10 mg PO DAILY 11/05/23 11/05/23 Unknown Active Medications Generic Name Dose Route Start Last Admin Trade Name Freq PRN Reason Stop Dose Admin Orellana Syrup 5 ml 11/05/23 18:00 11/11/23 11:57 Orellana Syrup 5 Ml Udp PO 11/15/23 17:59 5 ml Q6 MAURICIO Administration Cholestyramine Resin 4 gm 11/10/23 10:30 11/11/23 09:03 Cholestyramine Light 4 Gm Pkt PO 12/10/23 10:29 Not Given DAILY@1030 MAURICIO Sodium Chloride 1,000 mls @ 100 mls/hr 11/05/23 14:00 11/11/23 13:19 Nss IV 12/05/23 13:59 0 mls/hr .Q10H MAURICIO Infusion Methylprednisolone 20 mg/ 0.32 mls @ 1.5 mls/min 11/05/23 16:30 11/11/23 07:30 Syringe IV 12/05/23 16:29 1.5 mls/min Q8H MAURICIO Administration Morphine Sulfate 3 mg 11/05/23 16:22 11/09/23 21:45 Morphine Sulfate 4 Mg/Ml 1 Ml Carp\Vial IV 11/19/23 16:21 3 mg Q4H PRN Administration Severe Pain (Scale 7, 8, 9,10) Vancomycin HCl 500 mg 11/05/23 18:00 11/11/23 11:57 Vancomycin Hcl 500 Mg/10 Ml Soln PO 11/15/23 17:59 500 mg Q6 MAURICIO Administration NPO Date Last Intake of Fluids: 11/10/23 Date Last Intake of Solids: 11/10/23 Past Medical History Medical History Ulcerative colitis Exercise / Class Metabolic Activity II 4-5 Yardwork/Stairs/Walk up hill Past Family History Family History Other Diabetes Heart disease Hypertension Past Surgical History Surgical History H/O arthroscopy of shoulder Past Anesthesia History No Hx of Anesthesia Complications History of PONV No Hx of PONV Social History Smoking Status: Never smoker Hx Alcohol Use: No Alcohol type: beer Hx Substance Use: No Physical Exam Vital Signs Last Vital Signs Temp 36.6 C 11/11/23 07:29 Pulse 62 11/11/23 07:29 Resp 16 11/11/23 07:29 BP 120/73 11/11/23 07:29 Pulse Ox 98 11/11/23 07:29 O2 Del Method Room Air 11/11/23 07:45 ENMT Thyromental Distance: > or= 3.5 Finger Breadths Mallampati Class: II Respiratory normal respiratory effort Auscultation: lungs clear to auscultation bilaterally Cardiovascular Rate/Rhythm: regular rate and regular rhythm Psychiatric Orientation: alert and oriented x 3 Testing Laboratory Results 11/11/23 07:22 11/11/23 07:22 Hemoglobin A1c 7.0 % (4.5-5.6) H 11/06/23 05:59 Urine Color Norris 11/05/23 11:46 Urine Appearance Cloudy (Clear) A 11/05/23 11:46 Urine pH 5.5 (4.5-7.5) 11/05/23 11:46 Ur Specific Lucas 1.021 (1.000-1.030) 11/05/23 11:46 Urine Protein Trace (Negative) H 11/05/23 11:46 Urine Glucose (UA) Negative (Negative) 11/05/23 11:46 Urine Ketones Negative (Negative) 11/05/23 11:46 Urine Nitrite Negative (Negative) 11/05/23 11:46 Ur Leukocyte Esterase Trace (Negative) H 11/05/23 11:46 Urine WBC (Auto) 5-10 /hpf (0-5) H 11/05/23 11:46 Urine RBC (Auto) 10-30 /hpf (0-4) H 11/05/23 11:46 U Hyaline Cast (Auto) 10-30 /lpf (0-5) H 11/05/23 11:46 U Epithel Cells (Auto) 10-20 /lpf (0-5) H 11/05/23 11:46 Urine Bacteria (Auto) Negative (Negative) 11/05/23 11:46 11/05/23 21:26 Urine Culture - Final Urine,Clean Catch No growth - less than 1,000 colonies/mL.
--- NOTE | 2023-11-11 14:02 | GI REPORT ---
Patient Name: Christopher Zaragoza Procedure Date: 11/11/2023 1:41 PM Date of : 1970 Admit Type: Inpatient Age: 53 Gender: Male Attending MD: Ariadna Escalante DO, Procedure: Colonoscopy Providers: Ariadna Escalante DO Referring MD: Ravi Miranda Md, Precious Valero DO Indications: Follow-up of chronic ulcerative pancolitis Patient Profile: This is a 53 year old male. Refer to note in patient chart for documentation of history and physical. Medicines: Monitored Anesthesia Care Complications: No immediate complications. Estimated Blood Loss: Estimated blood loss was minimal. Procedure: Pre-Anesthesia Assessment: - Prior to the procedure, a History and Physical was performed, and patient medications and allergies were reviewed. The risks and benefits of the procedure and the sedation options and risks were discussed with the patient. All questions were answered and informed consent was obtained. Patient identification and proposed procedure were verified by the physician, the nurse and the environmental services tech in the procedure room. Mental Status Examination: alert and oriented. Airway Examination: Mallampati Class II (the uvula but not tonsillar pillars visualized). Respiratory Examination: clear to auscultation. CV Examination: RRR, no murmurs, no S3 or S4. Prophylactic Antibiotics: The patient does not require prophylactic antibiotics. Prior Anticoagulants: The patient has taken no anticoagulant or antiplatelet agents. ASA Grade Assessment: II - A patient with mild systemic disease. After reviewing the risks and benefits, the patient was deemed in satisfactory condition to undergo the procedure. The anesthesia plan was to use monitored anesthesia care (MAC). Immediately prior to administration of medications, the patient was re-assessed for adequacy to receive sedatives. The physical status of the patient was re-assessed after the procedure. After I obtained informed consent, the scope was passed under direct vision. Throughout the procedure, the patient's blood pressure, pulse, and oxygen saturations were monitored continuously. The Colonoscope was introduced through the anus and advanced to the terminal ileum, with identification of the appendiceal orifice and IC valve. The colonoscopy was performed without difficulty. The patient tolerated the procedure well. The quality of the bowel preparation was good. The terminal ileum, ileocecal valve, appendiceal orifice, and rectum were photographed. Findings: The perianal and digital rectal examinations were normal. Inflammation was found in a continuous and circumferential pattern from the rectum to the cecum. This was graded as Gordon Score 2 (moderate, with marked erythema, absent vascular pattern, friability, erosions). Biopsies were taken with a cold forceps for histology. Verification of patient identification for the specimen was done by the physician and nurse using the patient's name and date. Internal hemorrhoids were found during retroflexion. Impression: - Moderately active (Gordon Score 2) pancolitis ulcerative colitis. Biopsied. - Internal hemorrhoids. Recommendation: - Return patient to hospital [facility] for ongoing care. - Resume previous diet. - Continue present medications. - Await pathology results. Biopsies were obtained for CMV. - Convert to PO prednisone 60 mg daily. Use Questran. Continue Humira. If bowel movements do not improve (reports 26 yesterday) then will need surgical consult. Ariadna Escalante, 11/11/2023 2:01:26 PM Note Initiated On: 11/11/2023 1:41 PM Number of Addenda: 0 I attest to the content of the Intraoperative Record and orders documented therein, exceptions below {[id number]}
[2023-11-11] MEDS: LIDOCAINE 2% 2 ML VIAL/AMP(20MG/ML) INFIL ONE (14:49)
[2023-11-11] MEDS: PROPOFOL IV EMULSION 10 MG/ML 20 ML VIAL IV ONE ×2 (14:49→14:50)
[2023-11-11] MEDS: CHOLESTYRAMINE LIGHT 4 GM PKT PO SCH (23:13)
[2023-11-12 07:17] LABS: Basophils # (auto) 0.03 K/uL (0.00-0.20); Basophils % (auto) 0.4 %; Eosinophils # (auto) 0.24 K/uL (0.00-0.50); Eosinophils % (auto) 3.5 %; Hematocrit (blood only) 42.5 % (42.0-52.0); Hemoglobin 13.9 g/dl (14.0-18.0); Immature Granulocytes # (auto) 0.12 K/uL (0.01-0.20); Immature Granulocytes % (auto) 1.8 %; Lymphocytes % (auto) 35.3 %; Mean Corpuscular Hemoglobin 28.4 pg (25.0-34.0); Mean Corpuscular Hgb Conc 32.7 g/dL (32.0-36.0); Mean Corpuscular Volume 86.9 fL (80.0-100.0); Mean Platelet Volume 9.7 fL (9.4-12.4); Monocytes # (auto) 0.69 K/uL (0.11-0.59); Monocytes % (auto) 10.1 %; Neutrophils # (auto) 3.32 K/uL (1.40-6.50); Neutrophils % (auto) 48.9 %; Platelet Count 225 K/uL (130-400); RDW Coefficient of Variation 14.1 % (11.5-14.5); RDW Standard Deviation 44.1 fL (36.4-46.3); Red Blood Count 4.89 M/uL (4.70-6.10)
[2023-11-12 07:34] LABS: BUN Creatinine Ratio 27.3 (10-20); Calcium 8.4 mg/dl (8.6-10.3); Creatinine Clr Calc Pharmacy 113.2 ml/min; Est GFR (African American) 119.2 ml/min; Est GFR (Non-African American) 102.9 ml/min; Potassium 3.8 mmol/L (3.5-5.1)
--- NOTE | 2023-11-12 08:37 | Gastroenterology Progress Note ---
Date of Service November 12, 2023 Assessment & Plan (1) Ulcerative colitis: Plan: 53 year old male with UC (started Humira 11/06/23) admitted with c.diff colitis and UC flare presently on Vancomycin 500 mg QID (day 11) and IV methylprednisolone 20 mg q8h who notes resolution of blood stools, resolution of abd pain but persistent diarrhea s/p colonoscopy w/ evidene of moderate disease, biopsies are pending - Convert to PO prednisone 60 mg once daily x 2 weeks, then decrease by 5 mg intervals weekly - Low residue diet as tolerated - Complete full 14 day course of QID Vancomycin - Continue Humira - Scheduled Questran twice daily - May augment with Imodium once daily PRN as c.diff is negative now Thank you for allowing us to participate in the care of this patient. Please call with any acute changes, questions or concerns. Please see addendum below w ith additional recommendation from my supervising physician. (2) C. difficile colitis: Admission and Anticipated Discharge Date Admission Date: November 07, 2023 Supervising Physician Co-Signing Physician Notes I personally saw and evaluated the patient on 11/12/2023 with PIPER Singh and agree with her findings and plan of care. Abdomen soft and non-tender. Colonoscopy completed yesterday with moderate Gordon 2 UC. Biopsies obtained throughout the colon for CMV so will await path results. he is still having bowel movements every hour that are liquid. C. diff from yesterday is negative. Continue Prednisone PO 60 mg daily. Increase questran to BID. Can use Imodium 2- 4 mg TID to help slow down the diarrhea as C. diff is now negative. Continue induction dosing of Humira. Continue 14 day course of C. diff treatment. Hopeful that he will continue to improve once the Humira begins to work but if he continues to have severe diarrhea despite above measures would need to discuss surgical consult at that time but it is still early as Humira still needs more time to work. Ariadna Escalante, Gastroenterology and Hepatology Subjective Feeling somewhat improved noticed some form to his stool after a dose of questran Slept better last evening No abd pain. No nausea, vomiting. Water stools, no blood. 6 so far since yesterday. Review of Systems Review of Systems: All systems reviewed & are unremarkable except as noted in HPI & below Physical Exam Constitutional: WD/WN, vitals as above Respiratory: normal respiratory effort, lungs clear to auscultation Cardiovascular: Rate/Rhythm: regular rate Gastrointestinal (Abdomen): normal bowel sounds, soft, nontender, no hepatosplenomegaly Skin: no rashes, warm and dry Results & Data Vital Signs (Past 12 Hours) Vital Signs Temp Pulse Resp BP Pulse Ox O2 Del Method 11/12/23 07:38 36.6 C 62 18 105/67 97 Room Air Laboratory Results 11/12/23 Range/Units 06:43 WBC 6.80 (4.8-10.8) K/ul RBC 4.89 (4.70-6.10) M/uL Hgb 13.9 L (14.0-18.0) g/dl Hct 42.5 (42.0-52.0) % MCV 86.9 (80.0-100.0) fL MCH 28.4 (25.0-34.0) pg MCHC 32.7 (32.0-36.0) g/dL RDW Std Deviation 44.1 (36.4-46.3) fL RDW Coeff of Luan 14.1 (11.5-14.5) % Plt Count 225 (130-400) K/uL MPV 9.7 (9.4-12.4) fL Immature Gran % (Auto) 1.8 % Neut % (Auto) 48.9 % Lymph % (Auto) 35.3 % [place] % (Auto) 10.1 % Eos % (Auto) 3.5 % Baso % (Auto) 0.4 % Neut # (Auto) 3.32 (1.40-6.50) K/uL Lymph # (Auto) 2.40 (1.20-3.40) K/uL [place] # (Auto) 0.69 H (0.11-0.59) K/uL Eos # (Auto) 0.24 (0.00-0.50) K/uL Baso # (Auto) 0.03 (0.00-0.20) K/uL Immature Gran # (Auto) 0.12 (0.01-0.20) K/uL Sodium 138 (136-145) mmol/L Potassium 3.8 (3.5-5.1) mmol/L Chloride 108 H (98-107) mmol/L Carbon Dioxide 26 (21-32) mmol/L Anion Gap 4 (3-11) BUN 21 (6-23) mg/dl Creatinine 0.77 (0.6-1.4) mg/dl Est Cr Clr Drug Dosing 113.2 ml/min Est GFR ( Amer) 119.2 ml/min Est GFR (Non-Af Amer) 102.9 ml/min BUN/Creatinine Ratio 27.3 H (10-20) Glucose 86 (70-99(Fasting)) mg/dl Calcium 8.4 L (8.6-10.3) mg/dl (1) Ulcerative colitis Ulcerative colitis location: ulcerative pancolitis
[2023-11-12] MEDS: predniSONE 20 MG TAB PO SCH (09:11)
[2023-11-12] MEDS: LOPERAMIDE HCL 2 MG CAP PO SCH (11:03)
--- NOTE | 2023-11-12 12:59 | Anesthesiology Progress Note ---
Date of Service November 11, 2023 Anesthesia Post Procedure Vital Signs Vital Signs: Temp Pulse Resp BP BP Pulse Ox O2 Del Method 11/12/23 09:22 Room Air 11/12/23 07:38 36.6 C 62 18 105/67 97 Room Air 11/11/23 20:33 36.7 C 69 14 126/73 98 Room Air 11/11/23 14:48 36.5 C 62 16 126/81 98 Room Air 11/11/23 14:31 57 L 16 117/72 98 Room Air 11/11/23 14:15 68 16 111/67 99 Room Air 11/11/23 14:00 62 16 132/79 99 Room Air 11/11/23 13:28 36.8 C 62 16 137/91 Room Air Pain Intensity Abdomen: Pain Intensity: 7 Transfer of Care Handoff Completed per policy Notes Mental Status: alert / awake / arousable and participated in evaluation Nausea / Vomiting: adequately controlled Pain: adequately controlled Airway Patency, RR, SpO2: stable & adequate BP & HR: stable & adequate Hydration State: stable & adequate Anesthetic Complications: no major complications apparent and Pt Satisfied with anesthetic care
--- NOTE | 2023-11-12 13:33 | Hospitalist Progress Note ---
Date of Service November 12, 2023 Assessment & Plan (1) Ulcerative colitis: (2) C. difficile colitis: Plan: This is a 53-year-old male with PMH of suspected davis ulcerative colitis on mesalamine since colonoscopy in July 2023 with recent increase in diarrhea frequency in the past few weeks, found to be c diff positive on Oct 23 stool culture. Patient presents with abdominal pain, multiple episode of diarrhea and poor oral intake Follows with Dr. Valero Leukocytosis on admission present; downtrended CT abdomen and pelvis with oral and IV contrast on admission shows evidence of mild nonspecific pancolitis. CRP down trended from 6 to less than 0.5 Stool PCR negative C. difficile from 11/10 negative Colonoscopy done on November 11, 2023 shows moderately active pancolitis, ulcerative colitis along with internal hemorrhoids. Biopsies sent GI on board; continue Vancomycin at increased dose of 500mg PO Q6H; plan to treat for 14 days Switched over to prednisone 60 mg once a day for 2 weeks; plan to decrease it by 5 mg every week Started on cholestyramine and loperamide as per recommendation by GI Continue IV fluids for the time being given the diarrhea Type 2 diabetes mellitus HbA1c during the hospitalization was found to be 7% Patient has been on steroid for past few months Recommend diabetic diet and repeat HbA1c after patient is off steroid for 3 months. UTI ruled out Abnormal UA Dysuria present on admission; has resolved with hydration Urine culture negative DVT Ppx: SCDs, ambulate Code status: FULL PCP: Stephen Dispo: med/surg. Admitted for C. difficile colitis and UC flare; patient has severe diarrhea with 15-20 episodes per day. He requires IV fluids for hydration. Discharge in next few days if diarrhea improves. Please note the above document was generated using voice recognition software. It may contain grammatical, syntax or spelling errors. Any formal questions or concerns about the content, text or information contained within the body of this dictation should be directly addressed to the provider for clarification Admission and Anticipated Discharge Date Admission Date: November 07, 2023 Subjective Patient seen and examined at bedside. He continues to have episodes of watery diarrhea; multiple times throughout the day. Vitals are stable. Review of Systems Review of Systems: All systems reviewed & are unremarkable except as noted in Subjective Physical Exam Physical Exam: Constitutional: Awake, alert oriented x 3; not in distress. Respiratory: normal respiratory effort, lungs clear to auscultation, no wheeze, rales, rhonchi. Normal insp/exp effort, no accessory muscle use Cardiovascular: RRR, no murmur, no edema Vessels: no JVD or carotid bruit Chest: normal inspection of chest Abdomen: Soft, nontender Musculoskeletal: no cyanosis or clubbing, extremities motor strength 5/5 Skin: no rashes, warm and dry normal turgor Neurologic: PERRL, EOMI, accommodation nl, no face palsy, no dysarthria CN's II- XI intact bilaterally and moves all extremities Psychiatric: A+Ox3, euthymic affect Results & Data Results & Data Vital Signs (Past 12 Hours) Vital Signs Temp Pulse Resp BP Pulse Ox O2 Del Method 11/12/23 09:22 Room Air 11/12/23 07:38 36.6 C 62 18 105/67 97 Room Air (1) Ulcerative colitis Ulcerative colitis location: ulcerative pancolitis
[2023-11-12 15:23] LABS: CMV IgG Antibody <0.60 U/mL; CMV IgM Antibody <30.00 AU/mL
[2023-11-13 07:32] LABS: Basophils # (auto) 0.02 K/uL (0.00-0.20); Basophils % (auto) 0.3 %; Eosinophils # (auto) 0.27 K/uL (0.00-0.50); Eosinophils % (auto) 3.5 %; Hematocrit (blood only) 40.2 % (42.0-52.0); Hemoglobin 13.1 g/dl (14.0-18.0); Immature Granulocytes # (auto) 0.09 K/uL (0.01-0.20); Immature Granulocytes % (auto) 1.2 %; Lymphocytes # (auto) 1.86 K/uL (1.20-3.40); Lymphocytes % (auto) 24.2 %; Mean Corpuscular Hemoglobin 28.2 pg (25.0-34.0); Mean Corpuscular Hgb Conc 32.6 g/dL (32.0-36.0); Mean Corpuscular Volume 86.5 fL (80.0-100.0); Mean Platelet Volume 9.7 fL (9.4-12.4); Monocytes % (auto) 10.4 %; Neutrophils # (auto) 4.64 K/uL (1.40-6.50); Neutrophils % (auto) 60.4 %; Platelet Count 226 K/uL (130-400); RDW Coefficient of Variation 14.2 % (11.5-14.5); RDW Standard Deviation 44.2 fL (36.4-46.3); Red Blood Count 4.65 M/uL (4.70-6.10); White Blood Count 7.68 K/ul (4.8-10.8)
[2023-11-13 07:52] LABS: BUN Creatinine Ratio 24.2 (10-20); Calcium 8.2 mg/dl (8.6-10.3); Creatinine Clr Calc Pharmacy 132.1 ml/min; Est GFR (Non-African American) 109.6 ml/min; Potassium 3.6 mmol/L (3.5-5.1)
--- NOTE | 2023-11-13 09:35 | Gastroenterology Progress Note ---
Date of Service November 13, 2023 Assessment & Plan (1) Ulcerative colitis: Plan: 53 year old male with UC (started Humira 11/06/23) admitted with c.diff colitis and UC flare presently on Vancomycin 500 mg QID (day 11) and IV methylprednisolone 20 mg q8h who notes resolution of blood stools, resolution of abd pain but persistent diarrhea s/p colonoscopy w/ evidene of moderate disease, biopsies are pending - Convert to PO prednisone 60 mg once daily x 2 weeks, then decrease by 5 mg intervals weekly - Low residue diet as tolerated - Complete full 14 day course of QID Vancomycin - Continue Humira - Scheduled Questran twice daily - May augment with Imodium as needed as c.diff infection appears to be cleared - Will follow CMV path when available, CMV IGM and IGG negative Will sign off. Thank you for allowing us to participate in the care of this patient. Please call with any acute changes, questions or concerns. Please see addendum below with additional recommendation from my supervising physician. (2) C. difficile colitis: Admission and Anticipated Discharge Date Admission Date: November 07, 2023 Supervising Physician Co-Signing Physician Notes I personally saw and evaluated the patient on 11/13/2023 with PIPER Singh and agree with her findings and plan of care. Abdomen soft a nd non-tender. Colonoscopy completed this admission with moderate Gordon 2 UC. Biopsies obtained throughout the colon for CMV so will await path results. Bowel movements significantly improved down to 3/day with imodium and questran in the past 24 hours. Repeat C. Diff is negative. Continue Prednisone PO 60 mg daily and questran to BID. Continue the prednisone at 60 mg for 2 weeks then reduce by 5 mg weekly. Can use Imodium 2-4 mg TID to help slow down the diarrhea as C. diff is now negative. Continue induction dosing of Humira. Continue 14 day course of C. diff treatment. Hopeful that he will continue to improve once the Humira begins to work. He is ok for discharge today from GI standpoint. He will follow back up with Dr. Valero his outpatient feltmaker. Ariadna Escalante, DO Gastroenterology and Hepatology Subjective Starting to feel better. Was able to use scheduled Questran and Imodium yesterday. Has had 3 BM since midnight. No blood. No black. No abd pain. Tolerating PO Thinks he is feeling ready to go home. Review of Systems Review of Systems: All systems reviewed & are unremarkable except as noted in HPI & below Physical Exam Constitutional: WD/WN, vitals as above Gastrointestinal (Abdomen): Percussion/Palpation: abdomen soft; abdomen nontender, no guarding and abdomen not rigid Skin: no rashes, warm and dry Results & Data Vital Signs (Past 12 Hours) Vital Signs Temp Pulse Resp BP Pulse Ox O2 Del Method 11/13/23 06:15 36.6 C 66 16 110/69 97 Room Air Laboratory Results 11/13/23 11/11/23 11/10/23 Range/Units 07:03 07:22 15:49 WBC 7.68 (4.8-10.8) K/ul RBC 4.65 L (4.70-6.10) M/uL Hgb 13.1 L (14.0-18.0) g/dl Hct 40.2 L (42.0-52.0) % MCV 86.5 (80.0-100.0) fL MCH 28.2 (25.0-34.0) pg MCHC 32.6 (32.0-36.0) g/dL RDW Std Deviation 44.2 (36.4-46.3) fL RDW Coeff of Luan 14.2 (11.5-14.5) % Plt Count 226 (130-400) K/uL MPV 9.7 (9.4-12.4) fL Immature Gran % (Auto) 1.2 % Neut % (Auto) 60.4 % Lymph % (Auto) 24.2 % [place] % (Auto) 10.4 % Eos % (Auto) 3.5 % Baso % (Auto) 0.3 % Neut # (Auto) 4.64 (1.40-6.50) K/uL Lymph # (Auto) 1.86 (1.20-3.40) K/uL [place] # (Auto) 0.80 H (0.11-0.59) K/uL Eos # (Auto) 0.27 (0.00-0.50) K/uL Baso # (Auto) 0.02 (0.00-0.20) K/uL Immature Gran # (Auto) 0.09 (0.01-0.20) K/uL Sodium 138 (136-145) mmol/L Potassium 3.6 (3.5-5.1) mmol/L Chloride 109 H (98-107) mmol/L Carbon Dioxide 24 (21-32) mmol/L Anion Gap 5 (3-11) BUN 16 (6-23) mg/dl Creatinine 0.66 (0.6-1.4) mg/dl Est Cr Clr Drug Dosing 132.1 ml/min Est GFR ( Amer) 127.0 ml/min Est GFR (Non-Af Amer) 109.6 ml/min BUN/Creatinine Ratio 24.2 H (10-20) Glucose 97 (70-99(Fasting)) mg/dl Calcium 8.2 L (8.6-10.3) mg/dl CMV IgM Ab <30.00 AU/mL CMV IgG Ab/TORCH <0.60 U/mL Giardia Antigen SEE NOTE (1) Ulcerative colitis Ulcerative colitis location: ulcerative pancolitis
--- NOTE | 2023-11-13 13:10 | Discharge Summary ---
Discharge Summary Date of Service November 13, 2023 Notes For Next Care Provider Ulcerative colitis, c diff Medication Changes From Visit Prednisone taper at 60mg and continue decreasing by 5mg every 2 weeks Cholestyramine BID Imodium TID PRN Continue induction of Humira May continue using mesalamine daily until Humira is working Admission HPI Per Admitting Provider This is a 53-year-old male with PMH of suspected davis ulcerative colitis on mesalamine since colonoscopy in July 2023. Responded well to steroids for Aug-Sep but once prednisone was tapered, diarrhea worsened and was resumed on a prednisone taper. Follows with Dr. Valero. Previously went every 2 hours but then increased in frequency the last 2 nights where he is going every 40 m inutes. Consistency is mainly water and sometimes bright red blood. Associated with stomach cramping on the left lower abdomen. Humira was prescribed (but not yet started) but is en route to his house. Had a repeat stool sample at the beginning of October due to increased diarrhea and was found to be C. difficile positive on October 23. Otherwise stool culture was negative. Has been on vancomycin since then. Continuing to have frequent diarrhea episodes along with decreased p.o. intake and generalized weakness, prompting visit to ED today. Can really only tolerate Ensure shakes and has decreased PO intake. Has had chills and night sweats the past few evenings as well as nausea. No vomiting. No lightheadedness, CP, SOB. Has had dysuria for the past 1-2 weeks and feels very dehydrated. Admission Exam Per Admitting Provider Vitals signs as noted above General Appearance:Moderately built and nourished, no apparent distress Head: normocephalic, Atraumatic Eyes: normal inspection, EOMI Neck: supple, Trachea midline Respiratory/Chest: Normal breath sounds, CTA, No accessory muscle use Cardiovascular: S1, S2, No murmur Abdomen/GI:Soft, LLQ tender, Bowel sounds present Extremities/Musculoskeletal:normal inspection, no edema Neurologic/Psych:AAOX3, grossly no focal neurological deficits Skin: normal color, warm Principal Dx & Hospital Course #1 = Principal Diagnosis (1) Ulcerative colitis: (2) C. difficile colitis: This is a 53-year-old male with PMH of suspected davis ulcerative colitis on mesalamine since colonoscopy in July 2023 with recent increase in diarrhea frequency in the past few weeks, found to be c diff positive on Oct 23 stool culture. Patient presented with abdominal pain, multiple episode of diarrhea and poor oral intake. CT abdomen and pelvis with oral and IV contrast on admission shows evidence of mild nonspecific pancolitis. CRP down trended from 6 to less than 0.5. GI on board and recommended continuing Vancomycin for completion of 14 days. Was also started on IV Solu-medrol 20mg Q8H. Colonoscopy done on November 11, 2023 shows moderately active pancolitis, ulcerative colitis along with internal hemorrhoids. Biopsies sent and pending. Repeat C diff from 11/10 negative. GI recommending cholestyramine BID and loperamide TID PRN for diarrhea. Started on Humira with GI follow up, okay to continue mesalamine until Humira takes effect. Discharging on steroid taper of prednisone 60 mg once a day for 2 weeks; plan to decrease it by 5 mg every week with GI follow up with Dr. Valero. Also noted on admission to have hgb a1c in 7%, likely steroid induced. Recommended diabetic diet and repeating HbA1c after patient is off steroid for 3 months. Patient with significant clinical improvement and had first formed bowel movement last night. Comfortable and hemodynamically stable at time of discharge home. Discharge Exam Gen: WD/WN, NAD, sitting in bedside chair working on computer, A&Ox3 HEENT: Normocephalic, atraumatic, conjunctivae moist, sclerae anicteric, mucous membranes moist Lung: Clear to Auscultation bilaterally, no wheezes/rales/rhonchi Heart: Regular rate, regular rhythm, no murmurs, rubs, or gallops Abdomen: Soft, NT, ND +BS x 4 Extremities: no edema Skin: Warm, no rash Updated Medication List Medication Instructions Recorded Confirmed Type Lactobacillus rhamnosus GG 10 1 cap PO DAILY 11/05/23 11/05/23 History billion cell capsule (Culturelle) mesalamine 1.2 gram tablet,delayed 1.2 g PO 11/05/23 History release adalimumab 40 mg/0.8 mL 40 mg subcut UD 11/13/23 11/13/23 History subcutaneous pen kit (Humira Pen) cholestyramine-aspartame 4 gram 1 ea PO BID@1000,2200 #60 ea 11/13/23 Rx oral powder for susp in a packet (Prevalite) loperamide 2 mg capsule 2 mg PO Q8H PRN diarrhea 4 weeks 11/13/23 Rx #90 caps prednisone 10 mg tablet 10 mg PO DIRECTED #154 tabs 11/13/23 Rx Hospital Stay Data Consultations 11/05/23 12:50 ED Decision to Admit Stat 11/05/23 13:44 Consult Gastroenterology Routine Procedures Performed Operation Date: 11/11/23 16:30 Actual Procedures p Colonoscopy Biopsy Cytology - Ariadna Escalante, Diagnostic Imagining Performed 11/05/23 12:32 CT abd pelvis oral and IV con Stat Pending Results Patient Have Any Pending Studies at Discharge: Yes ( Awaiting biopsies from colonoscopy) Discharge Instructions Given to Patient (Per Discharging Provider) MEDICATION CHANGES: Prednisone taper at 60mg (6 10 mg tabs) x 2 weeks and then decreased to 55 mg (5.5 tabs) x 2 weeks and continue decreasing by 5mg every 2 weeks (please use a pill cutter when needed) Cholestyramine (Questran) twice a day until GI follow up Imodium 3 times a day as needed for diarrhea Continue induction of Humira May continue using mesalamine daily until Humira is working, per instruction from GI SUMMARY OF TEST RESULTS: Colonoscopy completed this admission with moderate Gordon 2 ulcerative colitis Completed 14 day course of oral vancomycin Repeat c diff stool test was negative PENDING TEST RESULTS: Awaiting biopsies from colonoscopy RECOMMENDATIONS FOR FOLLOW-UP: Follow up with PCP and GI as scheduled. Continue medication regimen as scheduled aside from changes noted above. OTHER INSTRUCTIONS: Seek medical attention if you have: * temperature above 101 * chest pain or trouble breathing * abdominal pain, nausea, vomiting * diarrhea, dark stools or bloody stools * any unanswered questions or concerns Call 911 if symptoms are severe. Please take good care of yourself. Call if you have any questions or problems. You can reach a [facility] hospitalist on duty at [facility] 24 hours a day by calling [phone]. Rajwinder Talley PA-C [facility] Hospitalist Total Time Total Time Spent Total Time Spent (In Minutes): 60 Supervising Physician Co-Signing Physician Notes Patient was seen and examined as a follow-up of C. difficile colitis and ulcerative colitis. Patient was being followed by GI, was started on loperamide and cholestyramine yesterday with improvement in consistency and frequency of the bowel movement today. GI okay with discontinuing p.o. vancomycin on discharge per my discussion with Rajwinder Talley PA-C. Patient being discharged on tapering dose of steroid, and on Humira. Patient to follow-up with PCP and GI. Patient counseled regarding diabetes and encouraged lifestyle modification. 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 I have seen and examined the patient and have discussed the case with the provider above. I agree with the assessment and plan as stated.
== END 2023-11-13 14:13 | disposition home or self-care (01) | DRG 387 ==
LOC: 3W 10:27 → ED 10:27 → SUATTDRO 12:50 → 3W 15:49 → SUATTDRO 11-07 18:57